=== PATIENT | male | born 1960 | race Caucasian/White ===

== ENCOUNTER 2018-07-12 12:40 | Inpatient (IN) | payer MEDICARE, MEDICAID, SELFPAY ==
[2018-07-12] VITALS (16 sets, daily range): BP systolic 124–158; BP diastolic 70–118; PULSE 70–109; RESP 11–24; TEMP 36.7–38.4; O2SAT 93–98; BMI 49.9; BMI 48.0
--- NOTE | 2018-07-12 12:59 | RAD_ITS ---
STUDY: X-RAY CHEST REASON FOR EXAM: Male, 58 years old. Cough, fever and chest pain. TECHNIQUE: PA and lateral views of the chest. COMPARISON: Comparison is made with prior study dated April 29, 2017. FINDINGS: EKG electrodes are seen. The lungs are clear and expanded. There is no demonstrated pleural abnormality. Normal size heart. Normal mediastinum and jose. Normal visualized pulmonary arteries. There is atherosclerotic tortuosity of the aortic arch and descending thoracic aorta. Normal visualized thoracic spine. Normal visualized ribs, clavicles, and shoulders. There is no demonstrated abnormality of the visualized soft tissue structures of the upper abdomen. RAD/Chest PA and Lateral IMPRESSION: No acute abnormality is seen. Electronically Signed: Stephen Atwood, at 15:02 EDT , Service support ,
--- NOTE | 2018-07-12 12:59 | EKG12_ITS ---
Test Reason : SOB Blood Pressure : / mmHG Vent. Rate : 098 BPM Atrial Rate : 098 BPM P-R Int : 150 ms QRS Dur : 076 ms QT Int : 354 ms P-R-T Axes : 035 018 050 degrees QTc Int : 451 ms Normal sinus rhythm Normal ECG Confirmed by JUSTYNA GUSMAN, LATONIA ([id number]), features editor LION LATHAM ([id number]) on 07/14/2018 8:34:51 AM Referred By: Omar Herndon Confirmed By:LATONIA JANSEN MD
[2018-07-12] MEDS: Albuterol 2.5 MG/3 ML VIAL.NEB. INHALATION ×4 (13:15→23:18)
[2018-07-12] MEDS: Ipratropium/Albuterol Sulfate 3 ML AMPUL.NEB INHALATION ×2 (13:16→19:00)
[2018-07-12] MEDS: Acetaminophen 500 MG Tablet 1000 MG PO (13:25)
[2018-07-12] MEDS: 0.9% Normal Saline 1,000 ML 1000 ML IV (13:25)
[2018-07-12 13:28] LABS: Absolute Lymphocyte Count 0.66 X10^3/ul (0.83-4.51); Absolute Neutrophil Count 13.9 X10^3/uL (2.0-7.7); Basophil# 0.02 X10^3/uL; Basophil% 0.1 % (0-1); Hematocrit 45.1 % (40-54); Hemoglobin 14.4 g/dl (13.0-16.5); Lymphocyte # 0.66 X10^3/ul (4.0); Lymphocyte % 4.2 % (19-41); Mean Corp Hgb Conc 31.9 g/gl (32-36); Mean Corpuscular Hgb 26.8 pg (27.0-32.0); Mean Platelet Vol. 9.7 fl (6.2-12.0); Monocyte# 1.31 X10^3/uL; Monocyte% 8.3 % (0-10); Neutrophil # 13.85 X10^3/uL (2.7-7.7); Neutrophil % 87.2 % (47-70); Platelet Count 210 K/mm3 (150-450); RBC Distribution Width CV 15.3 % (11.6-14.6); RBC Distribution Width SD 46.8 fl (35.1-43.9); Red Blood Count 5.37 M/mm3 (4.6-6.2); White Blood Count 15.9 K/mm3 (4.4-11.0)
[2018-07-12 13:34] LABS: ALB/GLOB Ratio 0.6 RATIO (0.9-2.4); AST(SGOT) 16 U/L (15-37); Alanine Aminotransfer ALT/SGPT 19 U/L (16-61); Alkaline Phosphatase 92 U/L (45-117); Anion Gap 11 (5-15); BUN 10 mg/dL (7-18); BUN/Creat Ratio 6.3 RATIO (10-20); Calcium,Total 8.2 mg/dL (8.5-10.1); Chloride 100 mmol/L (98-107); Creatinine, Serum 1.59 mg/dL (0.70-1.30); EST Glomerular Filtration Rate 48 mL/min (>60); Est Glom Filt Rate - Afr Amer 58 mL/min (>60); Estimated Creatinine Clearance 45.13 ml/min; Globulin 4.7 g/dL (2.2-4.2); Glucose 102 mg/dL (74-106); POSITIVE COUNT NO; POSITIVE DIFFERENTIAL NO; POSITIVE MORPHOLOGY NO; Potassium 3.6 mmol/L (3.5-5.1); Protein, Total 7.7 g/dL (6.4-8.2); Sodium Level 131 mmol/L (136-145)
[2018-07-12 13:58] LABS: Lactic Acid 1.4 mmol/L (0.4-2.0)
--- NOTE | 2018-07-12 14:43 | ED.DCSUM_ITS ---
- ER Visit Summary Date of Service: 07/12/18 Chief Complaint: [Cough, shortness of breath, chills History of Present Illness: The patient is a 58 M with history of COPD who is not on home oxygen, chronic kidney disease, and pyoderma gangrenosum presents to the emergency department with cough and shortness of breath. The patient states his symptoms been worsening over the past 3 days. He states he had cough, productive sputum, chills, and sweats. He is also felt increasingly weak. He is unsure if he had fever but has felt like he has at home. Patient is not on oxygen at home. He denies any other history of immunosuppression. He states his last steroids has been quite some time. He also has history of pyoderma gangrenosum and states that his right leg has been a little more red. Physical Examination: Vital signs reviewed General: Well-nourished, well-developed Head: Normocephalic, atraumatic Eyes: Pupils equal and reactive, extraocular muscles intact Neck, supple, no lymphadenopathy Heart: Regular rate and rhythm Respiratory: No distress, wheezing in all lung johnson with diminished air movement chronic skin changes on the lower extremities consistent with gangrenosum, Abdomen: Soft, nontender, nondistended, no peritoneal signs Back: Nontender Extremities: But some cellulitis and redness on the lower leg, normal pulses Skin: Normal color no rash Neuro: Alert and oriented, no focal or lateralizing deficits Test Results: [] Emergency Department Course and Treatment: The patient presents with fever, cough, and was hypoxic on arrival. Patient had IV established. Sepsis workup was pursued. Blood cultures were obtained. Patient was given fluids, steroids, and nebulized breathing treatments. He was also given supplemental oxygen. Chest x-ray shows no focal infiltrate. Patient does have a leukocytosis. His influenza was negative. On reevaluation, he is more comfortable. I am going to cover the patient with Rocephin and doxycycline for both pulmonary and skin coverage. He does have a mild cellulitis of his right lower extremity, but I do feel the bulk of his symptoms are secondary to respiratory status. With his hypoxia, the patient is in require admission. He had resolution of his tachypnea and is more comfortable. He was discussed with the hospitalist will be admitted. Treatment Plan: [] Disposition: Admission Impression: 1. Cellulitis right lower extremity 2. COPD exacerbation 3. Hypoxia 4. Sepsis This note was generated with [employer] dictation software. It may contain incorrect words, spelling, and punctuation that were not noted in review of the chart prior to signing ED Disposition - Plan for ED Patient: Referrals: Rey Knott MD [Primary Care Provider] -
--- NOTE | 2018-07-12 14:49 | NURSING ---
DR COLE IN ER
--- NOTE | 2018-07-12 14:49 | NURSING ---
PCU COPD EXAC, ACUTE RESP FAILURE, RLE CELLULITIS DOUGLAS
[2018-07-12] MEDS: Ceftriaxone 1 GM/50 ML BAG IV (14:53)
[2018-07-12] MEDS: MethylPREDNISolone 125 MG/2 ML Vial IV (14:54)
--- NOTE | 2018-07-12 15:05 | CT_ITS ---
Study: CT of the right lower extremity with contrast CLINICAL HISTORY: Abscess of the right calf and right ankle Previous study: None. PROCEDURE: Multiple computed tomographic images of the right lower extremity were obtained at 2.5 mm intervals using 2.5 mm thick slices in the axial projection. Coronal and sagittal reconstructions were obtained. Radiation dose: Total exam DLP: 749.05 FINDINGS: There is no evidence of abscess. There is skin thickening and subcutaneous fatty stranding of the anterolateral aspect of the leg consistent with cellulitis. Muscular soft tissue fascial planes are preserved. There is a geographic sclerotic focus of the proximal tibial metaphysis which may represent evidence of old bone infarct. CT/Extremity Lower WITH Contrast IMPRESSION: Skin thickening and subcutaneous fatty stranding of the anterolateral right leg consistent with cellulitis. There is no evidence of abscess or soft tissue gas. Electronically Signed: Manuel Garcia MD at 17:25 EDT , Service support ,
--- NOTE | 2018-07-12 15:19 | PCM.HP.STD ---
<Alfredo Tran - Last Filed: 07/12/18 15:29> Problem List (1) Sepsis Status: Acute (2) COPD with exacerbation Status: Acute (3) Cellulitis Status: Acute (4) Acute bronchitis Status: Acute (5) Hyponatremia Status: Acute (6) Pyoderma gangrenosum Status: Chronic (7) CKD (chronic kidney disease) stage 3, GFR 30-59 ml/min Status: Chronic (8) Morbid obesity Status: Chronic (9) MANDI (obstructive sleep apnea) Status: Chronic History of Present Illness Date of Admission: 07/12/18 Chief Complaint: SOB The patient is a 58 year old M with pmhx of pyoderma gangrenosum, COPD, CKDIII, morbid obesity, MANDI, HTN, depression, who presented to the ER with c/p SOB. He has been feeling progressively more ill in the past 3 days. He has become SOB worse with exertion, has been having fevers and chills, has a nonproductive cough and a sore throat. He is very wheezy. He also appears to have some worsening redness and swelling around his RLE pyoderma with swelling centralized over the right calf. He is saturating well, and is comfortable on 2 liters. He has no drainage from his wounds, but does admit to picking and scratching at the scabs. He has other lesions on his abdomen and arms as well. These do not appear acutely worse. 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 He is febrile in the ER. [] Past Medical History Past Medical History (Chronic Problems): Chronic Problems Pyoderma gangrenosum (Chronic) MANDI (obstructive sleep apnea) (Chronic) Morbid obesity (Chronic) CKD (chronic kidney disease) stage 3, GFR 30-59 ml/min (Chronic) Allergies aspirin Allergy (Verified 07/12/18 12:42) Anaphylaxis Penicillins Allergy (Verified 07/12/18 12:42) Hives Home Medications: Ambulatory Orders Medication Instructions Recorded Albuterol Aerosols [Ventolin 2.5 mg INHALATION Q6H PRN PRN 11/26/16 Aerosols] Albuterol Inhaler [Ventolin Hfa] 2 puff INHALATION Q6H PRN PRN 11/26/16 Quetiapine Fumarate [Seroquel XR] 200 mg PO QHS 11/26/16 Triamcinolone 0.1% Cream [Kenalog] 1 applic TOPICAL TID 04/29/17 Umeclidinium [place] [Incruse 1 puff INHALATION DAILY 04/29/17 Ellipta] buPROPion XL [Wellbutrin Xl] 300 mg PO DAILY 04/29/17 Baclofen 10 mg PO BID 07/12/18 Duloxetine HCl 60 mg PO DAILY 07/12/18 Losartan Potassium 100 mg PO DAILY 07/12/18 Surgical History: - Psychiatric History: Post traumatic stress Lives: Alone Smoking Status: Never smoker Tobacco Use: Non-smoker Alcohol: None Drugs: None - *Family History Maternal History Items: No pertinent history Paternal History Items: Heart Disease Sibling History Items: Heart Disease Review of Systems Constitutional: Reports: Chills, Fever, Malaise, Fatigue. Denies: Weight Change HEENT: Denies: Head Aches, Sinus Congestion, Sinus Drainage Cardiovascular: Denies: Chest Pain, Chest Pressure, Chest Tightness, Edema, Heaviness, Light Headedness, Palpitations Respiratory: Reports: Cough, Shortness of Breath, Shortness of breath at rest, Shortness of breath upon exertion, Wheezing. Denies: Pleuritic Pain, Sputum production Gastrointestinal: Reports: Nausea, Vomiting. Denies: Abdominal Pain, Diarrhea Genitourinary: Denies: Dysuria Musculoskeletal: Denies: Joint Pain, Joint Tenderness Skin: Reports: Lesions, Rash, Skin Changes. Denies: Wounds Neurological: Denies: Numbness, Tingling, Focal weakness Psychiatric: Denies: Anxiety, Depression, Homicidal Ideations, Suicidal Ideations Hematologic/ Lymphatic: Denies: Easy Bruising, Easy Bleeding VTE Information - Inpt Only VTE Present on Admission: No VTE Mechan Device Prophylaxis: None VTE Pharm Prophylaxis ordered?: Yes Patient Problems: Active and Suspected Problems COPD with exacerbation (Acute) Acute bronchitis (Acute) Sepsis (Acute) Hyponatremia (Acute) Cellulitis (Acute) - Physical Exam General: Alert, Oriented x3, Cooperative HEENT: Atraumatic, PERRLA, EOMI, Normocephalic Neck: Supple, No JVD, Negative Carotid Bruits Lungs: Diminished, Rhonchi, Wheezes Cardiovascular: No murmurs, Tachycardic Abdomen: Bowel Sounds Present, Soft, Non Tender, Obese, - - chronic wounds Extremities: No edema, Capillary Refill Less than 3 Seconds Skin: - - increased erythema and swelling of the RLE surrounding the pyoderma wounds, with swelling noted more locally around the posterolater calf with induration Musculoskeletal: No Tenderness to Palpation of Joints or Extremities Neurological: Cranial nerves II-XII grossly intact Psych/Mental Status: Normal Affect, Appropriate, Alert and oriented to time, place, person, mood and affect Vital Signs Temp Pulse Resp BP Pulse Ox 99.6 F H 103 H 20 H 124/70 H 96 07/12/18 14:46 07/12/18 14:46 07/12/18 14:46 07/12/18 14:46 07/12/18 14:46 Oxygen Flow Rate (L/min) 2 Oxygen Delivery Method Nasal Cannula Weight: 300 lb Body Mass Index (BMI) 49.9 Microbiology Past 72 Hours 07/12/18 13:34 Influenza Types A,B Direct FA (TOAN) - Final Mucosa - Nose Laboratory Tests Past 24 Hrs 07/12/18 07/12/18 07/12/18 13:09 13:09 13:14 WBC 15.9 H RBC 5.37 Hgb 14.4 Hct 45.1 MCV 84.0 MCH 26.8 L MCHC 31.9 L RDW 15.3 H RDW Differential 46.8 H Plt Count 210 MPV 9.7 Immature Gran % (Auto) 0.200 Neut % (Auto) 87.2 H Lymph % (Auto) 4.2 L [place] % (Auto) 8.3 Eos % (Auto) 0.0 Baso % (Auto) 0.1 Absolute Neuts (auto) 13.9 H Absolute Lymphs (auto) 0.66 L Total Counted Not Reportable Sodium 131 L Potassium 3.6 Chloride 100 Carbon Dioxide 20.0 L Anion Gap 11 BUN 10 Creatinine 1.59 H Estim Creat Clear Calc 45.13 Est GFR (MDRD) Af Amer 58 L Est GFR (MDRD) Non-Af 48 L BUN/Creatinine Ratio 6.3 L Glucose 102 Lactic Acid 1.4 Calcium 8.2 L Total Bilirubin 0.60 AST 16 ALT 19 Alkaline Phosphatase 92 Troponin I < 0.015 Total Protein 7.7 Albumin 3.0 L Globulin 4.7 H Albumin/Globulin Ratio 0.6 L Assessment/Plan All Active Problems COPD with exacerbation (Acute) Acute bronchitis (Acute) Sepsis (Acute) Hyponatremia (Acute) Cellulitis (Acute) BRIAN (acute kidney injury) (Acute) COPD (chronic obstructive pulmonary disease) (Acute) Acute respiratory failure with hypoxia (Acute) 1. Acute sepsis 2/2 acute bronchitis and possibly cellulitis RLE surrounding pyoderma gangrenosum wound - given Rocephin/Doxy in ER. Consult ID. D/w Dr. Mckeon - start with rocephin and azithro for now. CT RLE with contrast for possible abscess given swelling and induration of the calf. He has been picking at the wounds. He does have a hx of bacteremia with Strep vestibularis and coag neg staph. Blood cultures drawn. culture sputum if able to provide. -Sepsis criteria: +fever, leukocytosis, tachycardia, tachypnea, negative lactate. 2. Acute COPD exacerbation - continue steroids, duonebs, IS therapy. He is not hypoxic. CO2 is decreased on BMP. Gap normal. Never a smoker - COPD 2/2 fire/smoke exposure/occupational inhalants. He no longer follows his Assistant Speech Language Pathologist in [place], [place]. 3. Morbid obesity - likely has MANDI 4. CKD III - at baseline - IV fluids will be given as he will have a contrasted CT. 5. Hyponatremia - unclear etiology - trend. IV NaCl 6. Depression/PTSD - home meds 7. HTN - stable 8. Pyoderma gangrenosum - on topical kenalog at home. C/s wound care. DVT ppx: heparin This patient was seen by Alfredo Tran PA-C under the supervision of Dr. Herndon. <Omar Herndon - Last Filed: 07/12/18 17:23> History of Present Illness The patient is a 58 year old M with history of COPD, obstructive sleep ap[facility] with shortness of breath progressively worse for last 5 days. This time, patient having progressively worsening of cough, URIs with sore throat and postnasal drip and shortness of breath along with fever. He also feels chest congestion; not able to cough out mucus and wheezing. Patient also has worsening of right lower extremity pain, redness consistent with cellulitis. In ED, was found hypoxic 96% on 2 L of oxygen, tachypneic respiratory rate 22 and fever, T-max 101.1 Fahrenheit. Labs shows leukocytosis with left shift. Mild hyponatremia. Creatinine 1.59 on baseline The patient was last discharged on 05/03/1999 5:18 days of hospitalization for COPD exacerbation with acute hypoxic respiratory failure. Past Medical History Allergies aspirin Allergy (Verified 07/12/18 12:42) Anaphylaxis Penicillins Allergy (Verified 07/12/18 12:42) Hives - Physical Exam General: Alert, Oriented x3, Cooperative HEENT: Atraumatic, PERRLA, EOMI, Normocephalic Oral: - - Posterior pharyngeal wall erythematous with mucus exudate Neck: Supple, No JVD, Negative Carotid Bruits Lungs: Diminished, Rhonchi, Short of Breath, Tachypneic, Wheezes Cardiovascular: Normal S1, Normal S2, No murmurs, Tachycardic Abdomen: Bowel Sounds Present, Soft, Non Tender, Obese, - - chronic wounds Extremities: Capillary Refill Less than 3 Seconds, Edema Skin: No rashes, No breakdown, - Musculoskeletal: No Tenderness to Palpation of Joints or Extremities, Arthritic Changes, Muscle Wasting Neurological: Cranial nerves II-XII grossly intact Psych/Mental Status: Normal Affect, Appropriate Vital Signs Temp Pulse Resp BP Pulse Ox 98.3 F 89 22 H 138/84 H 97 07/12/18 15:54 07/12/18 16:05 07/12/18 15:54 07/12/18 15:54 07/12/18 15:54 Oxygen Flow Rate (L/min) 2 Oxygen Delivery Method Nasal Cannula Weight: 288 lb 5.834 oz Body Mass Index (BMI) 48.0 Microbiology Past 72 Hours 07/12/18 13:34 Influenza Types A,B Direct FA (TOAN) - Final Mucosa - Nose Laboratory Tests Past 24 Hrs 07/12/18 07/12/18 07/12/18 13:09 13:09 13:14 WBC 15.9 H RBC 5.37 Hgb 14.4 Hct 45.1 MCV 84.0 MCH 26.8 L MCHC 31.9 L RDW 15.3 H RDW Differential 46.8 H Plt Count 210 MPV 9.7 Immature Gran % (Auto) 0.200 Neut % (Auto) 87.2 H Lymph % (Auto) 4.2 L [place] % (Auto) 8.3 Eos % (Auto) 0.0 Baso % (Auto) 0.1 Absolute Neuts (auto) 13.9 H Absolute Lymphs (auto) 0.66 L Total Counted Not Reportable Sodium 131 L Potassium 3.6 Chloride 100 Carbon Dioxide 20.0 L Anion Gap 11 BUN 10 Creatinine 1.59 H Estim Creat Clear Calc 45.13 Est GFR (MDRD) Af Amer 58 L Est GFR (MDRD) Non-Af 48 L BUN/Creatinine Ratio 6.3 L Glucose 102 Lactic Acid 1.4 Calcium 8.2 L Total Bilirubin 0.60 AST 16 ALT 19 Alkaline Phosphatase 92 Troponin I < 0.015 Total Protein 7.7 Albumin 3.0 L Globulin 4.7 H Albumin/Globulin Ratio 0.6 L MRSA (PCR) 07/12/18 16:35 WBC RBC Hgb Hct MCV MCH MCHC RDW RDW Differential Plt Count MPV Immature Gran % (Auto) Neut % (Auto) Lymph % (Auto) [place] % (Auto) Eos % (Auto) Baso % (Auto) Absolute Neuts (auto) Absolute Lymphs (auto) Total Counted Sodium Potassium Chloride Carbon Dioxide Anion Gap BUN Creatinine Estim Creat Clear Calc Est GFR (MDRD) Af Amer Est GFR (MDRD) Non-Af BUN/Creatinine Ratio Glucose Lactic Acid Calcium Total Bilirubin AST ALT Alkaline Phosphatase Troponin I Total Protein Albumin Globulin Albumin/Globulin Ratio MRSA (PCR) Pending Assessment/Plan This patient was seen in conjunction with Alfredo BECK. I have independently interviewed and examined the patient and reviewed pertinent history, examination findings, laboratory and plan of management. I have reviewed the note and agree with the documented findings with the few additional points. In brief, patient is admitted for acute SIRS (fever, tachycardia, tachypnea and leukocytosis) secondary to history of COPD exacerbation most probably secondary to viral/bacterial bronchitis. Patient also has right lower extremity cellulitis with history of pyoderma gangrenosum. Patient denies any chronic abdominal pain or history of Crohn's disease/ulcerative colitis. Started on IV Rocephin and doxycycline. Discussed with ID and agree with IV Rocephin and doxycycline. 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 I have discussed my assessment with Alfredo BECK and orders have been reviewed. Code Visit Inpatient E&M: 73923 Init Hosp L3
--- NOTE | 2018-07-12 16:47 | CASEMGMT ---
RN CM Assessment Introduced role of RN CM to patient. Patient is alert, oriented and able to participate in RN CM Assessment. Care providers, pharmacy, and demographics verified. Presentation: Admitted for COPD exa, Acute Resp Failure, RLE Cellulitis. CC: SOB, Weakness, Fatigue PCP: Dr Rey Knott Specialists: Patient states is supposed to see a Bill Clerk but they keep telling him that he has [employer] and trying to bill under there and told that provider (Cannot recall Nephro Dr name- was referred by PCP) is not covered. Patient rambling on about it going to Collections and States only has Medicare, Would like to get help with figuring it out so he can f/u with Nephro. Preferred [facility]acy: [facility] Insurance: Medicare A&B, Medicaid Prescription Benefit: Yes LNOK: Daughter Chqiuita Jo Living Arrangements: Lives in a Farm house, some steps to enter- patient states does not have to use much, does not go out much. Independent with ambulation but does utilize a cane when legs are hurting. Independent with ADL's. Transportation: Patient drives, Drove self to hospital and plans to drive on [place]. DME: CPAP, Cane, Nebulizer. HHC: None in past SNF: None in past [place] PLAN: Home with no anticipated needs identified. Chery Duvall RNCM
[2018-07-12 19:24] LABS: M R Staph aureus DNA By PCR Negative (Negative); Probe Check PASS; Specimen Processing Control PASS
[2018-07-12] MEDS: Baclofen 10 MG Tablet PO (21:20)
[2018-07-12] MEDS: QUEtiapine 100 MG Tablet PO (21:20)
[2018-07-12] MEDS: Heparin Injection (Vial) 5,000 UNIT/ML VIAL 5000 UNIT SC (21:23)
[2018-07-13] VITALS (13 sets, daily range): BP systolic 145–165; BP diastolic 76–99; PULSE 67–111; RESP 16–20; TEMP 36.4–36.8; O2SAT 94–98
[2018-07-13] MEDS: 0.9% Normal Saline 1,000 ML 125 ML IV ×2 (00:51→09:42)
[2018-07-13 03:15] LABS: Bacteria 0 SEEN /hpf (None Seen); Mucous, Urine 0 SEEN /hpf (<or=2+); Squamous Epithelial Cells - UA 0 SEEN /hpf (0-5)
[2018-07-13] MEDS: Albuterol 2.5 MG/3 ML VIAL.NEB. INHALATION (03:17)
[2018-07-13 03:32] LABS: Color, Urine Yellow (Yellow); Glucose, Dipstick 50 mg/dl (Normal); Ketone-Dipstick Negative (Negative); Leukocyte Esterase-Dipstick Negative /ul (Negative); Nitrite-Dipstick Negative (Negative); Occult Blood-Urine 250 /ul (Negative); Protein-Dipstick 100 mg/dl (Negative); Urine Bilirubin Dipstick Negative (Negative); Urine Clarity Sl. Cloudy (Clear); Urine Urobilinogen Normal (Normal)
[2018-07-13 03:34] LABS: Fine Granular Cast- Urine 0-5 SEEN /lpf (0-5)
[2018-07-13 03:36] LABS: Red Blood Cells-Urine 50-100 SEEN /hpf (0-5); White Blood Cells 0-5 SEEN /hpf (0-5)
[2018-07-13 06:28] LABS: Anion Gap 6 (5-15); BUN 15 mg/dL (7-18); BUN/Creat Ratio 11.6 RATIO (10-20); Calcium,Total 8.5 mg/dL (8.5-10.1); Chloride 109 mmol/L (98-107); Creatinine, Serum 1.29 mg/dL (0.70-1.30); EST Glomerular Filtration Rate 61 mL/min (>60); Est Glom Filt Rate - Afr Amer 74 mL/min (>60); Estimated Creatinine Clearance 53.54 ml/min; Glucose 157 mg/dL (74-106); Potassium 4.5 mmol/L (3.5-5.1); Sodium Level 140 mmol/L (136-145)
[2018-07-13 06:29] LABS: Absolute Lymphocyte Count 0.43 X10^3/ul (0.83-4.51); Basophil# 0.01 X10^3/uL; Basophil% 0.1 % (0-1); Differential Indicated SCAN CRITERIA MET; Hematocrit 44.1 % (40-54); Hemoglobin 14.2 g/dl (13.0-16.5); Lymphocyte # 0.43 X10^3/ul (4.0); Lymphocyte % 3.7 % (19-41); Mean Corp Hgb Conc 32.2 g/gl (32-36); Mean Platelet Vol. 10.5 fl (6.2-12.0); Monocyte# 0.17 X10^3/uL; Monocyte% 1.5 % (0-10); Neutrophil # 10.98 X10^3/uL (2.7-7.7); Neutrophil % 94.4 % (47-70); POSITIVE COUNT NO; POSITIVE DIFFERENTIAL YES; POSITIVE MORPHOLOGY NO; Platelet Count 203 K/mm3 (150-450); RBC Distribution Width CV 15.4 % (11.6-14.6); RBC Distribution Width SD 47.1 fl (35.1-43.9); Red Blood Count 5.25 M/mm3 (4.6-6.2); White Blood Count 11.6 K/mm3 (4.4-11.0)
[2018-07-13] MEDS: Ipratropium/Albuterol Sulfate 3 ML AMPUL.NEB INHALATION ×2 (06:57→19:13)
--- NOTE | 2018-07-13 09:16 | CASEMGMT ---
Addendum entered by Monica Phelps 07/13/18 11:36: This RN SAM received a call back from Anju Delgado and she states that pt has not had a nephro referral sent for the last several years. Advised her that we can send him with a referral from here at discharge and Stefano CUSTOMER EXPERT aware at this time, voices understanding. Edson MCAK CM Original Note: Message left for Anju Delgado, [facility] CM for Dr. Knott, in regards to name of room attendant that they referred pt to. Edson MACK CM
[2018-07-13] MEDS: Ceftriaxone 1 GM/50 ML BAG IV (09:40)
[2018-07-13] MEDS: Azithromycin 250 MG Tablet 500 MG PO (09:42)
[2018-07-13] MEDS: DULoxetine Hcl 60 MG Capsule PO (09:42)
[2018-07-13] MEDS: Losartan Potassium 100 MG Tablet PO (09:43)
[2018-07-13] MEDS: buPROPion (XL) 300 MG TABLET.XL PO (09:43)
[2018-07-13] MEDS: QUEtiapine 100 MG Tablet PO ×2 (09:43→20:59)
[2018-07-13] MEDS: Baclofen 10 MG Tablet PO ×2 (09:43→20:59)
[2018-07-13] MEDS: Heparin Injection (Vial) 5,000 UNIT/ML VIAL 5000 UNIT SC ×2 (09:44→21:00)
--- NOTE | 2018-07-13 11:46 | PCM.PROGNOTE ---
Patient Problems: Active and Suspected Problems COPD with exacerbation (Acute) Acute bronchitis (Acute) Sepsis (Acute) Hyponatremia (Acute) Cellulitis (Acute) Subjective: Patient seen and examined. Reports improvement in breathing. Denies fever, chills overnight. - Physical Exam General: Alert, Oriented x3, Cooperative HEENT: Atraumatic, PERRLA, EOMI, Normocephalic Neck: Supple, No JVD, Negative Carotid Bruits Lungs: Diminished, Rhonchi, Wheezes Cardiovascular: Regular rate, Regular Rhythm, Normal S1, Normal S2, No murmurs Abdomen: Bowel Sounds Present, Soft, Non Tender, Non-Distended Extremities: No clubbing, No cyanosis, No edema, Capillary Refill Less than 3 Seconds Skin: - - Scattered erythema and pyoderma right lower extremity and right lower abdomen. Musculoskeletal: No Tenderness to Palpation of Joints or Extremities Neurological: Cranial nerves II-XII grossly intact, Neuro grossly intact Psych/Mental Status: Normal Affect, Appropriate Vital Signs Temp Pulse Resp BP Pulse Ox 98.2 F 80 18 157/99 H 94 07/13/18 10:00 07/13/18 10:00 07/13/18 10:00 07/13/18 10:00 07/13/18 10:00 Oxygen Flow Rate (L/min) 2 Oxygen Delivery Method Nasal Cannula Weight: 288 lb 5.834 oz Body Mass Index (BMI) 48.0 Intake and Output for Last 24 Hours 07/11/18 07/12/18 07/13/18 23:59 23:59 23:59 Intake Total 1497 / 1497 1048 / 1048 Output Total 1350 / 1350 1875 / 1875 Balance 147 / 147 -827 / -827 Microbiology Past 72 Hours 07/12/18 19:05 Respiratory Panel (PCR) - Final Mucosa - Nose Rhinovirus 07/12/18 13:34 Influenza Types A,B Direct FA (TOAN) - Final Mucosa - Nose Laboratory Tests Past 24 Hrs 07/12/18 07/12/18 07/12/18 13:09 13:09 13:14 WBC 15.9 H RBC 5.37 Hgb 14.4 Hct 45.1 MCV 84.0 MCH 26.8 L MCHC 31.9 L RDW 15.3 H RDW Differential 46.8 H Plt Count 210 MPV 9.7 Immature Gran % (Auto) 0.200 Neut % (Auto) 87.2 H Lymph % (Auto) 4.2 L [place] % (Auto) 8.3 Eos % (Auto) 0.0 Baso % (Auto) 0.1 Absolute Neuts (auto) 13.9 H Absolute Lymphs (auto) 0.66 L Total Counted Not Reportable Sodium 131 L Potassium 3.6 Chloride 100 Carbon Dioxide 20.0 L Anion Gap 11 BUN 10 Creatinine 1.59 H Estim Creat Clear Calc 45.13 Est GFR (MDRD) Af Amer 58 L Est GFR (MDRD) Non-Af 48 L BUN/Creatinine Ratio 6.3 L Glucose 102 Lactic Acid 1.4 Calcium 8.2 L Total Bilirubin 0.60 AST 16 ALT 19 Alkaline Phosphatase 92 Troponin I < 0.015 Total Protein 7.7 Albumin 3.0 L Globulin 4.7 H Albumin/Globulin Ratio 0.6 L Urine Color Urine Clarity Urine pH Ur Specific [place] Urine Protein Urine Glucose (UA) Urine Ketones Urine Occult Blood Urine Nitrite Urine Bilirubin Urine Urobilinogen Ur Leukocyte Esterase Urine RBC Urine WBC Ur Squamous Epith Cells Urine Bacteria Fine Granular Casts Urine Mucus MRSA (PCR) 07/12/18 07/13/18 07/13/18 16:35 03:00 05:25 WBC 11.6 H RBC 5.25 Hgb 14.2 Hct 44.1 MCV 84.0 MCH 27.0 MCHC 32.2 RDW 15.4 H RDW Differential 47.1 H Plt Count 203 MPV 10.5 Immature Gran % (Auto) 0.300 Neut % (Auto) 94.4 H Lymph % (Auto) 3.7 L [place] % (Auto) 1.5 Eos % (Auto) 0.0 Baso % (Auto) 0.1 Absolute Neuts (auto) 11.0 H Absolute Lymphs (auto) 0.43 L Total Counted Not Reportable Sodium Potassium Chloride Carbon Dioxide Anion Gap BUN Creatinine Estim Creat Clear Calc Est GFR (MDRD) Af Amer Est GFR (MDRD) Non-Af BUN/Creatinine Ratio Glucose Lactic Acid Calcium Total Bilirubin AST ALT Alkaline Phosphatase Troponin I Total Protein Albumin Globulin Albumin/Globulin Ratio Urine Color Yellow Urine Clarity Sl. Cloudy Urine pH 5.0 Ur Specific [place] 1.010 Urine Protein 100 H Urine Glucose (UA) 50 H Urine Ketones Negative Urine Occult Blood 250 H Urine Nitrite Negative Urine Bilirubin Negative Urine Urobilinogen Normal Ur Leukocyte Esterase Negative Urine RBC 50-100 SEEN Urine WBC 0-5 SEEN Ur Squamous Epith Cells 0 SEEN Urine Bacteria 0 SEEN Fine Granular Casts 0-5 SEEN Urine Mucus 0 SEEN MRSA (PCR) Negative 07/13/18 05:25 WBC RBC Hgb Hct MCV MCH MCHC RDW RDW Differential Plt Count MPV Immature Gran % (Auto) Neut % (Auto) Lymph % (Auto) [place] % (Auto) Eos % (Auto) Baso % (Auto) Absolute Neuts (auto) Absolute Lymphs (auto) Total Counted Sodium 140 Potassium 4.5 Chloride 109 H Carbon Dioxide 25.0 Anion Gap 6 BUN 15 Creatinine 1.29 Estim Creat Clear Calc 53.54 Est GFR (MDRD) Af Amer 74 Est GFR (MDRD) Non-Af 61 BUN/Creatinine Ratio 11.6 Glucose 157 H Lactic Acid Calcium 8.5 Total Bilirubin AST ALT Alkaline Phosphatase Troponin I Total Protein Albumin Globulin Albumin/Globulin Ratio Urine Color Urine Clarity Urine pH Ur Specific [place] Urine Protein Urine Glucose (UA) Urine Ketones Urine Occult Blood Urine Nitrite Urine Bilirubin Urine Urobilinogen Ur Leukocyte Esterase Urine RBC Urine WBC Ur Squamous Epith Cells Urine Bacteria Fine Granular Casts Urine Mucus MRSA (PCR) Medical Necessity - Tobacco Use Smoking Status: Never smoker Tobacco Use: Non-smoker Assessment/Plan All Active Problems COPD with exacerbation (Acute) Acute bronchitis (Acute) Sepsis (Acute) Hyponatremia (Acute) Cellulitis (Acute) BRIAN (acute kidney injury) (Acute) COPD (chronic obstructive pulmonary disease) (Acute) Acute respiratory failure with hypoxia (Acute) 1. Acute sepsis secondary to acute COPD exacerbation as a result of rhinovirus-respiratory panel positive for rhinovirus. Chest x-ray without acute abnormality. IV Solu-Medrol. Albuterol and DuoNeb aerosols. IS. Does not currently follow with pulmonary medicine. Recommend outpatient follow-up with pulmonary medicine at discharge. Patient currently on 2 L nasal cannula. Wean oxygen as tolerated to maintain O2 at or above 90%. Walking pulse ox prior to discharge. Blood cultures pending. 2. Pyoderma gangrenosum, chronic with associated cellulitis-wound RN consult for right lower extremity wounds. CT of right lower extremity showed skin thickening and subcutaneous fatty stranding of the anterolateral right leg consistent with cellulitis. No evidence of abscess or soft tissue gas. ID consulted. On azithromycin and Rocephin. Feel patient can be transitioned to oral regimen. Patient has a history of picking scabs and areas of pyoderma. Obtain wound culture if possible. Most areas appear scabbed over. Patient will need outpatient follow-up with dermatology. Do not feel this is a source of sepsis. 3. Chronic kidney disease stage III-at baseline, trend BMP. Has been referred to nephrology in the past which she has not followed up with. Recommend outpatient nephrology referral at discharge. 4. Hyponatremia-suspect secondary to hypovolemia. Resolved. 5. Hypertension-stable, continue home losartan regimen. 6. Depression/PTSD-continue home duloxetine, bupropion, Seroquel regimen. 7. Morbid obesity-encouraged diet lifestyle modifications. Nutrition consult. 8. MANDI-continue CPAP regimen. DVT prophylaxis-heparin subcu This patient was seen by ROXANA Peña under the supervision of Dr. Talley.
--- NOTE | 2018-07-13 11:59 | NURSING ---
wound photo: right lower leg
--- NOTE | 2018-07-13 16:38 | CON.PCM_ITS ---
Problem List (1) COPD with exacerbation Status: Acute Reason for Consult: cough Consulted by: Dr. Talley History of Present Illness: The patient is a 58 year old M with h/o COPD who presented yesterday with several days of cough, SOB, wheezing. Associated fever and chills. Has some chronic sores on legs and excoriations, not any different from usual; no pain or drainage. Has been around sick kids with URIs. Came to ED, fever to 101.1. Given doxy and ceftriaxone, admitted on steroids, azithro, ceftriaxone. Feeling better this AM. Full ROS performed and neg except as noted above. - Medical History Past Medical History (Chronic Problems): Chronic Problems Pyoderma gangrenosum (Chronic) MANDI (obstructive sleep apnea) (Chronic) Morbid obesity (Chronic) CKD (chronic kidney disease) stage 3, GFR 30-59 ml/min (Chronic) Allergies/Adverse Reactions: Allergies aspirin Allergy (Verified 07/12/18 12:42) Anaphylaxis Penicillins Allergy (Verified 07/12/18 12:42) Hives Home Medications: Ambulatory Orders Medication Instructions Recorded Albuterol Aerosols [Ventolin 2.5 mg INHALATION Q6H PRN PRN 11/26/16 Aerosols] Albuterol Inhaler [Ventolin Hfa] 2 puff INHALATION Q6H PRN PRN 11/26/16 Quetiapine Fumarate [Seroquel XR] 200 mg PO QHS 11/26/16 Triamcinolone 0.1% Cream [Kenalog] 1 applic TOPICAL TID 04/29/17 Umeclidinium [place] [Incruse 1 puff INHALATION DAILY 04/29/17 Ellipta] buPROPion XL [Wellbutrin Xl] 300 mg PO DAILY 04/29/17 Baclofen 10 mg PO BID 07/12/18 Duloxetine HCl 60 mg PO DAILY 07/12/18 Losartan Potassium 100 mg PO DAILY 07/12/18 - Social History Tobacco Use: non-smoker Vital Signs Temp Pulse Resp BP Pulse Ox 98.1 F 97 18 146/76 H 98 07/13/18 14:00 07/13/18 16:00 07/13/18 14:00 07/13/18 14:00 07/13/18 14:00 Oxygen Flow Rate (L/min) 2 Oxygen Delivery Method Nasal Cannula Weight: 130.8 kg Body Mass Index (BMI) 48.0 Microbiology Past 72 Hours 07/12/18 19:05 Respiratory Panel (PCR) - Final Mucosa - Nose Rhinovirus 07/12/18 13:34 Influenza Types A,B Direct FA (TOAN) - Final Mucosa - Nose Laboratory Tests Past 24 Hrs 07/12/18 07/13/18 07/13/18 16:35 03:00 05:25 WBC 11.6 H RBC 5.25 Hgb 14.2 Hct 44.1 MCV 84.0 MCH 27.0 MCHC 32.2 RDW 15.4 H RDW Differential 47.1 H Plt Count 203 MPV 10.5 Immature Gran % (Auto) 0.300 Neut % (Auto) 94.4 H Lymph % (Auto) 3.7 L [place] % (Auto) 1.5 Eos % (Auto) 0.0 Baso % (Auto) 0.1 Absolute Neuts (auto) 11.0 H Absolute Lymphs (auto) 0.43 L Total Counted Not Reportable Sodium Potassium Chloride Carbon Dioxide Anion Gap BUN Creatinine Estim Creat Clear Calc Est GFR (MDRD) Af Amer Est GFR (MDRD) Non-Af BUN/Creatinine Ratio Glucose Calcium Urine Color Yellow Urine Clarity Sl. Cloudy Urine pH 5.0 Ur Specific [place] 1.010 Urine Protein 100 H Urine Glucose (UA) 50 H Urine Ketones Negative Urine Occult Blood 250 H Urine Nitrite Negative Urine Bilirubin Negative Urine Urobilinogen Normal Ur Leukocyte Esterase Negative Urine RBC 50-100 SEEN Urine WBC 0-5 SEEN Ur Squamous Epith Cells 0 SEEN Urine Bacteria 0 SEEN Fine Granular Casts 0-5 SEEN Urine Mucus 0 SEEN MRSA (PCR) Negative 07/13/18 05:25 WBC RBC Hgb Hct MCV MCH MCHC RDW RDW Differential Plt Count MPV Immature Gran % (Auto) Neut % (Auto) Lymph % (Auto) [place] % (Auto) Eos % (Auto) Baso % (Auto) Absolute Neuts (auto) Absolute Lymphs (auto) Total Counted Sodium 140 Potassium 4.5 Chloride 109 H Carbon Dioxide 25.0 Anion Gap 6 BUN 15 Creatinine 1.29 Estim Creat Clear Calc 53.54 Est GFR (MDRD) Af Amer 74 Est GFR (MDRD) Non-Af 61 BUN/Creatinine Ratio 11.6 Glucose 157 H Calcium 8.5 Urine Color Urine Clarity Urine pH Ur Specific [place] Urine Protein Urine Glucose (UA) Urine Ketones Urine Occult Blood Urine Nitrite Urine Bilirubin Urine Urobilinogen Ur Leukocyte Esterase Urine RBC Urine WBC Ur Squamous Epith Cells Urine Bacteria Fine Granular Casts Urine Mucus MRSA (PCR) - Other Studies Radiology: [] reviewed Other Studies: [] Route of nutrition/ use of supplements: [] Nutritional Intake: [] IV Site: [] [place] Catheter: [] - Physical Exam General: Alert, Oriented x3, Cooperative, No apparent distress HEENT: Atraumatic, PERRLA, EOMI Neck: Supple, No Nodes Lungs: Wheezes Cardiovascular: Regular rate, Regular Rhythm, No murmurs Abdomen: Soft, Non Tender, Non-Distended, Obese Extremities: Edema Skin: Excoriated - R mcclure area of induration/scarring. IV Site: Peripheral, without redness Musculoskeletal: No Tenderness to Palpation of Joints or Extremities Neurological: Cranial nerves II-XII grossly intact - Assessment/Plan Antibiotics: [] Assessment/Plan: [] Active and Suspected Problems COPD with exacerbation (Acute) Acute bronchitis (Acute) Sepsis (Acute) Hyponatremia (Acute) Cellulitis (Acute) COPD exacerbation with rhinovirus URI - low suspicion for cellulitis given stable appearance of legs (CT showed no abscess). No sputum. Resp viral panel with rhinovirus. Fever and wbc improved. SOB and cough improved. Stop ceftriaxone, continue azithro for planned short course. will follow, thank you, d/w primary team.
[2018-07-13] MEDS: 0.9% NaCl Peripheral Flush Adult/Peds IV (20:59)
[2018-07-14 03:02] VITALS: PULSE 67
[2018-07-14 04:18] VITALS: BP 149/86; PULSE 82; RESP 18; TEMP 36.4; O2SAT 93
[2018-07-14] MEDS: 0.9% NaCl Peripheral Flush Adult/Peds IV (05:09)
[2018-07-14 06:32] VITALS: PULSE 71
[2018-07-14 07:03] LABS: Hemoglobin 14.2 g/dl (13.0-16.5); Mean Corp Hgb Conc 31.6 g/gl (32-36); Mean Corpuscular Hgb 26.8 pg (27.0-32.0); Mean Corpuscular Volume 85.1 fL (80-94); Platelet Count 206 K/mm3 (150-450); RBC Distribution Width CV 15.2 % (11.6-14.6); RBC Distribution Width SD 47.4 fl (35.1-43.9); Red Blood Count 5.29 M/mm3 (4.6-6.2); Scan Indicated on CBC? Y/N NO; White Blood Count 11.5 K/mm3 (4.4-11.0)
[2018-07-14 07:19] VITALS: PULSE 64; RESP 16; O2SAT 98
[2018-07-14] MEDS: Ipratropium/Albuterol Sulfate 3 ML AMPUL.NEB INHALATION (07:19)
[2018-07-14 07:33] LABS: Anion Gap 5 (5-15); BUN 24 mg/dL (7-18); BUN/Creat Ratio 19.5 RATIO (10-20); Calcium,Total 8.7 mg/dL (8.5-10.1); Chloride 113 mmol/L (98-107); Creatinine, Serum 1.23 mg/dL (0.70-1.30); EST Glomerular Filtration Rate 65 mL/min (>60); Est Glom Filt Rate - Afr Amer 78 mL/min (>60); Estimated Creatinine Clearance 56.15 ml/min; Glucose 138 mg/dL (74-106); Potassium 5.3 mmol/L (3.5-5.1); Sodium Level 135 mmol/L (136-145)
[2018-07-14] MEDS: DULoxetine Hcl 60 MG Capsule PO (09:08)
[2018-07-14] MEDS: Losartan Potassium 100 MG Tablet PO (09:08)
[2018-07-14] MEDS: Heparin Injection (Vial) 5,000 UNIT/ML VIAL 5000 UNIT SC (09:08)
[2018-07-14] MEDS: buPROPion (XL) 300 MG TABLET.XL PO (09:09)
[2018-07-14] MEDS: Azithromycin 250 MG Tablet 500 MG PO (09:09)
[2018-07-14] MEDS: Baclofen 10 MG Tablet PO (09:09)
[2018-07-14] MEDS: QUEtiapine 100 MG Tablet PO (09:09)
[2018-07-14 10:00] VITALS: BP 155/82; PULSE 84; RESP 20; TEMP 36.1; O2SAT 93; O2SAT 94
[2018-07-14 10:39] VITALS: PULSE 81
--- NOTE | 2018-07-14 10:44 | PCM.DC ---
- Discharge Diagnoses Current Active Problems: Current Active and Chronic Problems COPD with exacerbation (Acute) Acute bronchitis (Acute) Sepsis (Acute) Hyponatremia (Acute) Pyoderma gangrenosum (Chronic) Cellulitis (Acute) You will use the following diet at home:: Calorie/Carbohydrate Controlled (specify 1200, 1400, etc), Cardiac Discharge Activity: Return to Normal Activity Call your doctor if you observe: Shortness of breath, Dizziness, Fainting spells, Chest pain Allergies/Adverse Reactions: Allergies aspirin Allergy (Verified 07/12/18 12:42) Anaphylaxis Penicillins Allergy (Verified 07/12/18 12:42) Hives Medications to take at Discharge Albuterol Aerosols [Ventolin Aerosols] 2.5 mg INHALATION Q6H PRN PRN 11/26/16 Albuterol Inhaler [Ventolin Hfa] 2 puff INHALATION Q6H PRN PRN 11/26/16 Quetiapine Fumarate [Seroquel XR] 200 mg PO QHS 11/26/16 Triamcinolone 0.1% Cream [Kenalog] 1 applic TOPICAL TID 04/29/17 Umeclidinium [place] [Incruse Ellipta] 1 puff INHALATION DAILY 04/29/17 buPROPion XL [Wellbutrin Xl] 300 mg PO DAILY 04/29/17 Baclofen 10 mg PO BID 07/12/18 Duloxetine HCl 60 mg PO DAILY 07/12/18 Losartan Potassium 100 mg PO DAILY 07/12/18 Prednisone See Taper PO DAILY #30 tablet 07/14/18 The following prescriptions were given: Prednisone See Taper PO DAILY #30 tablet Primary Care Physician: Rey Knott MD [Primary Care Provider] - Please follow up with your Primary Care Physician in: 1 Week Test Results: Test results from this visit will be discussed in further detail at your follow-up appointment, if applicable. Proposed Discharge Date: 07/14/18
--- NOTE | 2018-07-14 10:55 | PCM.DC.SUM ---
Discharge Date and Diagnosis Date of Admission: 07/12/18 Date of Discharge: 07/14/18 - Primary Discharge Diagnosis Active and Suspected Problems 1. Acute sepsis secondary to acute COPD exacerbation as a result of rhinovirus 2. Pyoderma gangrenosum, chronic-acute cellulitis ruled out 3. Chronic kidney disease stage III 4. Hyponatremia 5. Hypertension 6. Depression/PTSD 7. Morbid obesity 8. MANDI - Secondary Discharge Diagnosis Chronic Problems Pyoderma gangrenosum (Chronic) MANDI (obstructive sleep apnea) (Chronic) Morbid obesity (Chronic) CKD (chronic kidney disease) stage 3, GFR 30-59 ml/min (Chronic) Hospital Course and Treatment Imaging Results: Diagnostic Data Chest X-Ray 07/12/18 12:59 IMPRESSION: No acute abnormality is seen. Electronically Signed: Stephen Atwood, at 15:02 EDT , Service support , Lower Extremity CT 07/12/18 15:05 IMPRESSION: Skin thickening and subcutaneous fatty stranding of the anterolateral right leg consistent with cellulitis. There is no evidence of abscess or soft tissue gas. Electronically Signed: Manuel Garcia MD at 17:25 EDT , Service support , Consultations 07/12/18 15:39 Consult: Onc/Wound/fire protection equipment technician Routine Comment: Dr. Mckeon- ID Operations: None Procedures: None Summary of Care Provided: The patient is a 58 year old M admitted 07/12/2018 due to shortness of breath. 1. Acute sepsis secondary to acute COPD exacerbation as a result of rhinovirus-respiratory panel positive for rhinovirus. Chest x-ray without acute abnormality. Does not currently follow with pulmonary medicine. Recommend outpatient follow-up with pulmonary medicine at discharge. Patient weaned off of supplemental oxygen. Walking pulse ox completed prior to discharge and patient did not require further supplemental oxygen. Prednisone taper at discharge. Patient declines recommended referral to pulmonary medicine, nephrology and dermatology. He states he cannot afford doctors. Follow-up with primary care physician in 1 week. 2. Pyoderma gangrenosum, chronic-acute cellulitis ruled out-CT of right lower extremity showed skin thickening and subcutaneous fatty stranding of the anterolateral right leg. No evidence of abscess or soft tissue gas. ID consulted. Does not suspect cellulitis. Patient initially received Rocephin and azithromycin. No further antibiotics at discharge. Patient has a history of picking scabs and areas of pyoderma. Patient states he has followed up with dermatology in the past who prescribed him topical medications. Recommended follow-up with dermatology, patient declined. 3. Chronic kidney disease stage III-at baseline, Has been referred to nephrology in the past which she has not followed up with. Recommend outpatient nephrology referral at discharge. It appears he has been referred to Dr. Nicole Ocampo in the past. 4. Hyponatremia-suspect secondary to hypovolemia. Resolved. 5. Hypertension-stable, continue home losartan regimen. 6. Depression/PTSD-continue home duloxetine, bupropion, Seroquel regimen. 7. Morbid obesity-encouraged diet lifestyle modifications. 8. MANDI-continue CPAP regimen. General: Alert, Oriented x3, Cooperative HEENT: Atraumatic, PERRLA, EOMI, Normocephalic Neck: Supple, No JVD, Negative Carotid Bruits Lungs: Diminished, occasional expiratory wheeze Cardiovascular: Regular rate, Regular Rhythm, Normal S1, Normal S2, No murmurs Abdomen: Bowel Sounds Present, Soft, Non Tender, Non-Distended Extremities: No clubbing, No cyanosis, No edema, Capillary Refill Less than 3 Seconds Skin: Scattered erythema and pyoderma right lower extremity Musculoskeletal: No Tenderness to Palpation of Joints or Extremities Neurological: Cranial nerves II-XII grossly intact, Neuro grossly intact Psych/Mental Status: Normal Affect, Appropriate Patient seen and examined prior to discharge. Physical assessment as noted above. Patient is stable for discharge with follow up recommendations as noted above. This patient was seen by ROXANA Peña under the supervision of Dr. Talley. - Physical Exam Vital Signs Temp Pulse Resp BP Pulse Ox 97.6 F L 64 16 149/86 H 98 07/14/18 04:18 07/14/18 07:19 07/14/18 07:19 07/14/18 04:18 07/14/18 07:19 Oxygen Flow Rate (L/min) 2 Oxygen Delivery Method Room Air Weight: 288 lb 5.834 oz Body Mass Index (BMI) 48.0 Intake and Output for Last 24 Hours 07/12/18 07/13/18 07/14/18 23:59 23:59 23:59 Intake Total 1497 / 1497 3862 / 3862 60 / 60 Output Total 1350 / 1350 2275 / 2275 Balance 147 / 147 1587 / 1587 60 / 60 Microbiology Past 72 Hours 07/12/18 19:05 Respiratory Panel (PCR) - Final Mucosa - Nose Rhinovirus 07/12/18 13:34 Influenza Types A,B Direct FA (TOAN) - Final Mucosa - Nose Laboratory Tests Past 24 Hrs 07/14/18 07/14/18 06:42 06:42 WBC 11.5 H RBC 5.29 Hgb 14.2 Hct 45.0 MCV 85.1 MCH 26.8 L MCHC 31.6 L RDW 15.2 H RDW Differential 47.4 H Plt Count 206 MPV 11.0 Sodium 135 L Potassium 5.3 H Chloride 113 H Carbon Dioxide 17.0 L Anion Gap 5 BUN 24 H Creatinine 1.23 Estim Creat Clear Calc 56.15 Est GFR (MDRD) Af Amer 78 Est GFR (MDRD) Non-Af 65 BUN/Creatinine Ratio 19.5 Glucose 138 H Calcium 8.7 Discharge Diet: Low fat/ Low Cholesterol, 1800 Calorie Control Diet Discharge Activity: Return to Normal Activity Call your doctor if you observe: Shortness of breath, Dizziness, Fainting spells, Chest pain Home Medications: Medications to take at Discharge Albuterol Aerosols [Ventolin Aerosols] 2.5 mg INHALATION Q6H PRN PRN 11/26/16 Albuterol Inhaler [Ventolin Hfa] 2 puff INHALATION Q6H PRN PRN 11/26/16 Quetiapine Fumarate [Seroquel XR] 200 mg PO QHS 11/26/16 Triamcinolone 0.1% Cream [Kenalog] 1 applic TOPICAL TID 04/29/17 Umeclidinium [place] [Incruse Ellipta] 1 puff INHALATION DAILY 04/29/17 buPROPion XL [Wellbutrin Xl] 300 mg PO DAILY 04/29/17 Baclofen 10 mg PO BID 07/12/18 Duloxetine HCl 60 mg PO DAILY 07/12/18 Losartan Potassium 100 mg PO DAILY 07/12/18 Prednisone See Taper PO DAILY #30 tablet 07/14/18 Following Prescrptions Were Given to Patient: Prednisone See Taper PO DAILY #30 tablet Primary Care Physician: Rey Knott MD [Primary Care Provider] - Please follow up with your Primary Care Physician in: 1 Week Disposition: Home Minutes spent on discharge:: 35 Patient Condition:: Stable Medical Necessity - Tobacco Use Smoking Status: Never smoker Tobacco Use: Non-smoker Meaningful Use Info Meaningful Use Diagnoses (Choose all that apply): None applicable
--- NOTE | 2018-07-14 11:05 | DS.PCM_ITS ---
Discharge Date and Diagnosis Date of Admission: 07/12/18 Date of Discharge: 07/14/18 - Primary Discharge Diagnosis Active and Suspected Problems 1. Acute sepsis secondary to acute COPD exacerbation as a result of rhinovirus 2. Pyoderma gangrenosum, chronic-acute cellulitis ruled out 3. Chronic kidney disease stage III 4. Hyponatremia 5. Hypertension 6. Depression/PTSD 7. Morbid obesity 8. MANDI - Secondary Discharge Diagnosis Chronic Problems Pyoderma gangrenosum (Chronic) MANDI (obstructive sleep apnea) (Chronic) Morbid obesity (Chronic) CKD (chronic kidney disease) stage 3, GFR 30-59 ml/min (Chronic) Hospital Course and Treatment Imaging Results: Diagnostic Data Chest X-Ray 07/12/18 12:59 IMPRESSION: No acute abnormality is seen. Electronically Signed: Stephen Atwood, at 15:02 EDT , Service support , Lower Extremity CT 07/12/18 15:05 IMPRESSION: Skin thickening and subcutaneous fatty stranding of the anterolateral right leg consistent with cellulitis. There is no evidence of abscess or soft tissue gas. Electronically Signed: Manuel Garcia MD at 17:25 EDT , Service support , Consultations 07/12/18 15:39 Consult: Onc/Wound/living coach Routine Comment: Dr. Mckeon- ID Operations: None Procedures: None Summary of Care Provided: The patient is a 58 year old M admitted 07/12/2018 due to shortness of breath. 1. Acute sepsis secondary to acute COPD exacerbation as a result of rhinovirus- respiratory panel positive for rhinovirus. Chest x-ray without acute abnormalit y. Does not currently follow with pulmonary medicine. Recommend outpatient follow-up with pulmonary medicine at discharge. Patient weaned off of supplemental oxygen. Walking pulse ox completed prior to discharge and patient did not require further supplemental oxygen. Prednisone taper at discharge. Patient declines recommended referral to pulmonary medicine, nephrology and dermatology. He states he cannot afford doctors. Follow-up with primary care physician in 1 week. 2. Pyoderma gangrenosum, chronic-acute cellulitis ruled out-CT of right lower extremity showed skin thickening and subcutaneous fatty stranding of the anterolateral right leg. No evidence of abscess or soft tissue gas. ID consulted. Does not suspect cellulitis. Patient initially received Rocephin and azithromycin. No further antibiotics at discharge. Patient has a history of picking scabs and areas of pyoderma. Patient states he has followed up with dermatology in the past who prescribed him topical medications. Recommended follow-up with dermatology, patient declined. 3. Chronic kidney disease stage III-at baseline, Has been referred to nephrology in the past which she has not followed up with. Recommend outpatient nephrology referral at discharge. It appears he has been referred to Dr. Nicole Ocampo in the past. 4. Hyponatremia-suspect secondary to hypovolemia. Resolved. 5. Hypertension-stable, continue home losartan regimen. 6. Depression/PTSD-continue home duloxetine, bupropion, Seroquel regimen. 7. Morbid obesity-encouraged diet lifestyle modifications. 8. MANDI-continue CPAP regimen. General: Alert, Oriented x3, Cooperative HEENT: Atraumatic, PERRLA, EOMI, Normocephalic Neck: Supple, No JVD, Negative Carotid Bruits Lungs: Diminished, occasional expiratory wheeze Cardiovascular: Regular rate, Regular Rhythm, Normal S1, Normal S2, No murmurs Abdomen: Bowel Sounds Present, Soft, Non Tender, Non-Distended Extremities: No clubbing, No cyanosis, No edema, Capillary Refill Less than 3 Seconds Skin: Scattered erythema and pyoderma right lower extremity Musculoskeletal: No Tenderness to Palpation of Joints or Extremities Neurological: Cranial nerves II-XII grossly intact, Neuro grossly intact Psych/Mental Status: Normal Affect, Appropriate Patient seen and examined prior to discharge. Physical assessment as noted above. Patient is stable for discharge with follow up recommendations as noted above. This patient was seen by ROXANA Peña under the supervision of Dr. Talley. - Physical Exam Vital Signs Temp Pulse Resp BP Pulse Ox 97.6 F L 64 16 149/86 H 98 07/14/18 04:18 07/14/18 07:19 07/14/18 07:19 07/14/18 04:18 07/14/18 07:19 Oxygen Flow Rate (L/min) 2 Oxygen Delivery Method Room Air Weight: 288 lb 5.834 oz Body Mass Index (BMI) 48.0 Intake and Output for Last 24 Hours 07/12/18 07/13/18 07/14/18 23:59 23:59 23:59 Intake Total 1497 / 1497 3862 / 3862 60 / 60 Output Total 1350 / 1350 2275 / 2275 Balance 147 / 147 1587 / 1587 60 / 60 Microbiology Past 72 Hours 07/12/18 19:05 Respiratory Panel (PCR) - Final Mucosa - Nose Rhinovirus 07/12/18 13:34 Influenza Types A,B Direct FA (TOAN) - Final Mucosa - Nose Laboratory Tests Past 24 Hrs 07/14/18 07/14/18 06:42 06:42 WBC 11.5 H RBC 5.29 Hgb 14.2 Hct 45.0 MCV 85.1 MCH 26.8 L MCHC 31.6 L RDW 15.2 H RDW Differential 47.4 H Plt Count 206 MPV 11.0 Sodium 135 L Potassium 5.3 H Chloride 113 H Carbon Dioxide 17.0 L Anion Gap 5 BUN 24 H Creatinine 1.23 Estim Creat Clear Calc 56.15 Est GFR (MDRD) Af Amer 78 Est GFR (MDRD) Non-Af 65 BUN/Creatinine Ratio 19.5 Glucose 138 H Calcium 8.7 Discharge Diet: Low fat/ Low Cholesterol, 1800 Calorie Control Diet Discharge Activity: Return to Normal Activity Call your doctor if you observe: Shortness of breath, Dizziness, Fainting spells, Chest pain Home Medications: Medications to take at Discharge Albuterol Aerosols [Ventolin Aerosols] 2.5 mg INHALATION Q6H PRN PRN 11/26/16 Albuterol Inhaler [Ventolin Hfa] 2 puff INHALATION Q6H PRN PRN 11/26/16 Quetiapine Fumarate [Seroquel XR] 200 mg PO QHS 11/26/16 Triamcinolone 0.1% Cream [Kenalog] 1 applic TOPICAL TID 04/29/17 Umeclidinium Indian [Incruse Ellipta] 1 puff INHALATION DAILY 04/29/17 buPROPion XL [Wellbutrin Xl] 300 mg PO DAILY 04/29/17 Baclofen 10 mg PO BID 07/12/18 Duloxetine HCl 60 mg PO DAILY 07/12/18 Losartan Potassium 100 mg PO DAILY 07/12/18 Prednisone See Taper PO DAILY #30 tablet 07/14/18 Following Prescrptions Were Given to Patient: Prednisone See Taper PO DAILY #30 tablet Primary Care Physician: Rey Knott MD [Primary Care Provider] - Please follow up with your Primary Care Physician in: 1 Week Disposition: Home Minutes spent on discharge:: 35 Patient Condition:: Stable Medical Necessity - Tobacco Use Smoking Status: Never smoker Tobacco Use: Non-smoker Meaningful Use Info Meaningful Use Diagnoses (Choose all that apply): None applicable
--- NOTE | 2018-07-18 14:18 | CASEMGMT ---
FREDERICK AVRGAS Discharge Follow-Up Phone Call. Lace: 10 Strata: 3 Discharge Date: 07/14/18 Adm Dx: COPD Exac, Acute Resp Failure, RLE Cellulitis Call to pt to inquire about how he has been doing since being discharged from the hospital. Pt stated, My nose is sore from that rhino, but other than that I'm doing much better. Pt states he was able to get the Prednisone and he is taking it as prescribed. He also states he made a follow-up appt with his PCP. He denies having any questions about the discharge instructions or medications or any other concerns. Pt advised to contact his PCP with any further questions or concerns he may have. FREDERICK VARGAS thanked pt for choosing [facility]. Radha SCOTT RN, CM
== END 2018-07-14 13:20 | disposition home or self-care (01) | DRG 191 ==
LOC: ED 13:22 → PCU 15:05
PROVIDERS: Nurse Practitioner Family; Physician Assistant; Admitting Provider Internal Medicine; Emergency Provider Emergency Medicine; Family Provider Internal Medicine; PCP Internal Medicine; Referring Provider Internal Medicine; Visit Provider Internal Medicine
DX: J44.1 Chronic obstructive pulmonary disease with (acute) exacerbation (principal); L88 Pyoderma gangrenosum; Z68.42 Body mass index [BMI] 45.0-49.9, adult; E87.1 Hypo-osmolality and hyponatremia; J20.6 Acute bronchitis due to rhinovirus; J44.0 Chronic obstructive pulmonary disease with (acute) lower respiratory infection; E66.01 Morbid (severe) obesity due to excess calories; G47.33 Obstructive sleep apnea (adult) (pediatric); I12.9 Hypertensive chronic kidney disease with stage 1 through stage 4 chronic kidney disease, or unspecified chronic kidney disease; N18.3 Chronic kidney disease, stage 3 (moderate); F32.9 Major depressive disorder, single episode, unspecified; F43.10 Post-traumatic stress disorder, unspecified
CPT/HCPCS: 36415; 71046; 73701; 80048; 80053; 81001; 83605; 84484; 85025; 85027; 87040; 87633; 87641; 87804; 93005; 94640; 94667; 94668; 99283; J7030; Q9967; A4216

== ENCOUNTER 2018-12-31 12:30 | Observation (INO) | payer MEDICARE, SELFPAY ==
[2018-07-12 15:47] VITALS: BMI 48.0
[2018-12-31] VITALS (11 sets, daily range): BP systolic 106–150; BP diastolic 66–94; PULSE 68–105; RESP 16–27; TEMP 36.4–39.1; O2SAT 93–97; BMI 47.5; BMI 47.6
--- NOTE | 2018-12-31 13:01 | RAD_ITS ---
STUDY: X-RAY CHEST REASON FOR EXAM: Male, 58 years old. Shortness of breath. Chills. TECHNIQUE: Single frontal view of the chest. COMPARISON: July 12, 2018 FINDINGS: Hyperexpansion unchanged. There is no demonstrated pleural abnormality. Stable borderline cardiomegaly. Normal mediastinum and jose. Normal visualized pulmonary arteries. Normal visualized aortic arch and descending thoracic aorta. Normal visualized thoracic spine. Normal visualized ribs, clavicles, and shoulders. There is no demonstrated abnormality of the visualized soft tissue structures of the upper abdomen. RAD/Chest 1 View (Portable) IMPRESSION: No change and no acute finding. Electronically Signed: Jesus Salazar MD at 13:44 EDT , Service support ,
--- NOTE | 2018-12-31 13:01 | EKG12_ITS ---
Test Reason : GENERAL ILLNESS Blood Pressure : / mmHG Vent. Rate : 098 BPM Atrial Rate : 098 BPM P-R Int : 152 ms QRS Dur : 074 ms QT Int : 352 ms P-R-T Axes : 042 029 040 degrees QTc Int : 449 ms Sinus rhythm with Premature atrial complexes Low Voltage QRS (Limb Leads) Poor R- wave Progression Confirmed by OTILIO GUSMAN, ELIZABET ([id number]), newspaper photo editor BIENVENIDO KIM ([id number]) on 01/02/2019 11:30:55 AM Referred By: FUAD Confirmed By:ELIZABET YAÑEZ MD
[2018-12-31] MEDS: Ipratropium/Albuterol Sulfate 3 ML AMPUL.NEB INHALATION ×2 (13:12→19:02)
[2018-12-31] MEDS: 0.9% Normal Saline 1,000 ML 999 ML IV (13:20)
[2018-12-31] MEDS: MethylPREDNISolone 125 MG/2 ML Vial IV (13:20)
[2018-12-31] MEDS: Acetaminophen 325 MG Tablet 650 MG PO (13:20)
[2018-12-31 13:23] LABS: Absolute Lymphocyte Count 0.61 X10^3/uL (0.83-4.51); Absolute Neutrophil Count 19.1 X10^3/uL (2.0-7.7); Basophil# 0.06 X10^3/uL; Basophil% 0.3 % (0-1); Eosinophil# 0.06 X10^3/uL; Eosinophils% 0.3 % (0-5); Hemoglobin 14.8 g/dL (13.0-16.5); Lymphocyte # 0.61 X10^3/ul (4.0); Lymphocyte % 2.9 % (19-41); Mean Corp Hgb Conc 33.6 g/dL (32-36); Mean Corpuscular Hgb 28.7 pg (27.0-32.0); Mean Corpuscular Volume 85.4 fL (80-94); Mean Platelet Vol. 10.2 fl (6.2-12.0); Monocyte# 1.36 X10^3/uL; Monocyte% 6.4 % (0-10); NRBC Flagged by Analyzer 0 % (0-5); Neutrophil # 19.11 X10^3/uL (2.7-7.7); Neutrophil % 89.5 % (47-70); POSITIVE MORPHOLOGY YES; Platelet Count 198 K/mm3 (150-450); RBC Distribution Width CV 14.1 % (11.6-14.6); RBC Distribution Width SD 43.6 fl (35.1-43.9); Red Blood Count 5.15 M/mm3 (4.6-6.2); White Blood Count 21.3 K/mm3 (4.4-11.0)
[2018-12-31 13:27] LABS: Differential Indicated SCAN CRITERIA MET
--- NOTE | 2018-12-31 13:27 | ED.DCSUM_ITS ---
History of Present Illness Chief Complaint: General Illness Informant: Patient Onset: 3 Context: Gradual Onset Timing: Continuous Current Severity: Moderate Maximum Severity: Moderate Narrative: Patient states for the last several days he has been malaise/week, having subjective fevers and chills, wheezing with an increased cough but no sputum production, feels like his COPD is worse, and some nausea and mild diarrhea. Denies any blood in his diarrhea. He denies any chest pain. He has chronic pain in his right abdomen as well as his right lower leg from pyogenic gangrenosum, he states those symptoms are stable and as usual, no worse. He states the redness that he has in these areas are chronic and unchanged compared with usual. He is on no oxygen at home for his COPD. He does not smoke anymore. - Past Medical History (1) COPD (chronic obstructive pulmonary disease) Status: Chronic (2) CKD (chronic kidney disease) stage 3, GFR 30-59 ml/min Status: Chronic (3) Morbid obesity Status: Chronic (4) MANDI (obstructive sleep apnea) Status: Chronic (5) Pyoderma gangrenosum Status: Chronic Past Medical History - Allergies and Home Meds Allergies/Adverse Reactions: Allergies aspirin Allergy (Verified 12/31/18 12:31) Anaphylaxis Penicillins Allergy (Verified 12/31/18 12:31) Hives Primary Care Physician: Rey Knott MD [Primary Care Provider] - Lives: With Family Drugs: None - Family History Maternal Family History: Reports: No pertinent history Paternal Family History: Reports: Heart Disease Sibling Family History: Reports: Heart Disease Review of Systems General: Reports: Chills, Fever, Malaise, Subjective. Denies: Sweats Eyes: Denies: Visual changes - bilaterally, Diplopia ENT: Denies: Rhinorrhea, Sore throat Cardiovascular: Denies: Chest pain, Palpitations Respiratory: Reports: Dyspnea, Cough. Denies: Sputum, Dyspnea on exertion, Orthopnea Gastrointestinal: Reports: Abdominal pain, Diarrhea. Denies: Nausea, Vomiting, Melena, Hematochezia Genitourinary: Denies: Dysuria, Hematuria, Frequency Musculoskeletal: Reports: Myalgias, Extremity Pain. Denies: Arthralgias, Neck pain, Back pain, Swelling Skin: Reports: Rash - see HPI; pt states as usual and no recent changes; present for years on right abd and RLE. Denies: Wounds Neurological: Denies: Headache, Weakness, Numbness Physical Exam Vital Signs/Narrative: Vital Signs Temp Pulse Resp BP Pulse Ox 12/31/18 13:12 96 20 H 12/31/18 13:04 94 12/31/18 12:31 102.3 F H 105 H 24 H 150/83 H 93 Inital Vital Signs reviewed: Yes General: Well nourished, Well developed, Obese, No Acute Distress Head: Normocephalic, Atraumatic Eyes: Perrl, EOMI ENT: Moist mucous membranes, No rhinorrhea Neck: Supple, Nontender Cardiovascular: Regular rate, Regular rhythm, No murmurs Respiratory: No distress, Chest nontender, Wheezing - throughout all lung johnson, Diminished - thorughout, symmetrically. Negative for: Rales, Rhonchi Abdomen: Soft, Nondistended, Normal bowel sounds, Tender - abd wall at erythemetous areas. Negative for: Guarding, Rebound tenderness Back: Nontender, Normal Inspection Extremities: Nontender, No edema. Negative for: Calf Tenderness Skin: Normal color, Rash - Large area of right mid/lower abdominal wall erythema with induration and a couple of recent scabs that the patient states he accidentally scratched/rubbed off, without abscess. There is an area of scar tissue or skin graft. Also, similar finding anterior mid right lower leg, there is also an area here that was recently bleeding that appears to have been scratched off, the patient states he rubbed it off on accident somehow recently. Neurological: Alert, Oriented x3, Cranial nerves II-XII grossly intact, Normal Strength, Normal Sensation, Normal Gait Psychological: Normal affect, Normal Mood Diagnostic/Tx/Re-eval Impressions Chest X-Ray 12/31/18 13:01 IMPRESSION: No change and no acute finding. Electronically Signed: Jesus Salazar MD at 13:44 EDT , Service support , 12/31/18 13:01 Chest 1 View (Portable) [RAD] Stat Laboratory Results 12/31/18 12/31/18 12/31/18 13:14 13:14 13:14 WBC 21.3 H RBC 5.15 Hgb 14.8 Hct 44.0 MCV 85.4 MCH 28.7 MCHC 33.6 RDW Std Deviation 43.6 RDW Coeff of Roge 14.1 Plt Count 198 MPV 10.2 Immature Gran % (Auto) 0.600 Neut % (Auto) 89.5 H Lymph % (Auto) 2.9 L [place] % (Auto) 6.4 Eos % (Auto) 0.3 Baso % (Auto) 0.3 Absolute Neuts (auto) 19.1 H Absolute Lymphs (auto) 0.61 L Nucleated RBC % 0 PT 14.9 INR 1.2 APTT 31.4 Sodium 132 L Potassium 3.4 L Chloride 99 Carbon Dioxide 25.0 Anion Gap 8 BUN 14 Creatinine 1.33 H Estim Creat Clear Calc 53.95 Est GFR (MDRD) Af Amer 71 Est GFR (MDRD) Non-Af 59 L BUN/Creatinine Ratio 10.5 Glucose 120 H Lactic Acid Calcium 8.4 L Total Bilirubin 0.80 AST 12 L ALT 16 Alkaline Phosphatase 90 Troponin I 0.022 Total Protein 7.2 Albumin 2.6 L Globulin 4.6 H Albumin/Globulin Ratio 0.6 L Urine Color Urine Clarity Urine pH Ur Specific [place] Urine Protein Urine Glucose (UA) Urine Ketones Urine Occult Blood Urine Nitrite Urine Bilirubin Urine Urobilinogen Ur Leukocyte Esterase Urine RBC Urine WBC Ur Squamous Epith Cells Urine Bacteria Urine Mucus 12/31/18 12/31/18 13:14 14:00 WBC RBC Hgb Hct MCV MCH MCHC RDW Std Deviation RDW Coeff of Roge Plt Count MPV Immature Gran % (Auto) Neut % (Auto) Lymph % (Auto) [place] % (Auto) Eos % (Auto) Baso % (Auto) Absolute Neuts (auto) Absolute Lymphs (auto) Nucleated RBC % PT INR APTT Sodium Potassium Chloride Carbon Dioxide Anion Gap BUN Creatinine Estim Creat Clear Calc Est GFR (MDRD) Af Amer Est GFR (MDRD) Non-Af BUN/Creatinine Ratio Glucose Lactic Acid 1.2 Calcium Total Bilirubin AST ALT Alkaline Phosphatase Troponin I Total Protein Albumin Globulin Albumin/Globulin Ratio Urine Color Keesha Urine Clarity Sl. Cloudy Urine pH 7.0 Ur Specific [place] 1.010 Urine Protein 100 H Urine Glucose (UA) Normal Urine Ketones 5 H Urine Occult Blood 250 H Urine Nitrite Negative Urine Bilirubin Negative Urine Urobilinogen 1 H Ur Leukocyte Esterase 25 H Urine RBC > 100 SEEN Urine WBC 0-5 SEEN Ur Squamous Epith Cells 0 SEEN Urine Bacteria 0 SEEN Urine Mucus 0 SEEN - Rhythm Strip Rhythm Strip: Sinus Rhythm Rate: 98 Ectopy: PAC(s) - EKG Initial EKG Interpretation: Sinus Rhythm, No Acute Injury Pattern - PACs, nml EKG otherwise - Medical Decision Making Patient is feeling better after medications for his myalgias, fever, and COPD. No pneumonia on the x-ray, however he probably has bronchitis and due to his COPD flareup along with that, meets criteria for sepsis. His lactate is within normal limits, his blood pressures remained stable. Plan is for inpatient observation/admission because the patient still feels dyspneic and very weak and prefers to stay in the hospital based on the symptoms although he is not hypoxic; he was given steroids but before that his white blood count is over 21. Urine shows blood but no signs of infection. ED Disposition - Plan for ED Patient: Disposition: Acute Care Hospital [facility] Diagnosis: Sepsis, COPD exacerbation Referrals: Rey Knott MD [Primary Care Provider] -
[2018-12-31 13:34] LABS: International Normalized Ratio 1.2; Prothrombin Time (Protime)PT. 14.9 SECONDS (11.7-14.9)
[2018-12-31 13:35] LABS: Partial Thromboplast Time 31.4 Seconds (24.1-36.2)
[2018-12-31 13:46] LABS: ALB/GLOB Ratio 0.6 RATIO (0.9-2.4); AST(SGOT) 12 U/L (15-37); Alanine Aminotransfer ALT/SGPT 16 U/L (16-61); Albumin, Serum 2.6 g/dL (3.2-5.0); Alkaline Phosphatase 90 U/L (45-117); Anion Gap 8 (5-15); BUN 14 mg/dL (7-18); BUN/Creat Ratio 10.5 RATIO (10-20); Calcium,Total 8.4 mg/dL (8.5-10.1); Chloride 99 mmol/L (98-107); Creatinine, Serum 1.33 mg/dL (0.70-1.30); EST Glomerular Filtration Rate 59 mL/min (>60); Est Glom Filt Rate - Afr Amer 71 mL/min (>60); Estimated Creatinine Clearance 53.95 ml/min; Globulin 4.6 g/dL (2.2-4.2); Glucose 120 mg/dL (74-106); Lactic Acid 1.2 mmol/L (0.4-2.0); Potassium 3.4 mmol/L (3.5-5.1); Protein, Total 7.2 g/dL (6.4-8.2); Sodium Level 132 mmol/L (136-145)
[2018-12-31 14:10] LABS: Bacteria 0 SEEN /hpf (None Seen); Mucous, Urine 0 SEEN /hpf (<or=2+); Squamous Epithelial Cells - UA 0 SEEN /hpf (0-5)
[2018-12-31 14:11] LABS: Color, Urine Amber (Yellow); Glucose, Dipstick Normal (Normal); Ketone-Dipstick 5 mg/dl (Negative); Leukocyte Esterase-Dipstick 25 /ul (Negative); Nitrite-Dipstick Negative (Negative); Occult Blood-Urine 250 /ul (Negative); Protein-Dipstick 100 mg/dl (Negative); Urine Bilirubin Dipstick Negative (Negative); Urine Clarity Sl. Cloudy (Clear); Urine Urobilinogen 1 mg/dl (Normal)
[2018-12-31 14:16] LABS: Red Blood Cells-Urine > 100 SEEN /hpf (0-5); White Blood Cells 0-5 SEEN /hpf (0-5)
--- NOTE | 2018-12-31 16:45 | PCM.HP.STD ---
Problem List (1) Hypertension Status: Chronic (2) Pyoderma gangrenosum Status: Chronic (3) COPD (chronic obstructive pulmonary disease) Status: Chronic (4) MANDI (obstructive sleep apnea) Status: Chronic (5) CKD (chronic kidney disease) stage 3, GFR 30-59 ml/min Status: Chronic History of Present Illness Date of Admission: 12/31/18 Chief Complaint: Weakness, body aches, malaise. The patient is a 58 year old M with past medical history as mentioned above presented to the emergency room because of weakness, body aches and malaise. His symptoms started this past Tuesday which is 2 days ago with generalized body aches, dull aching pains all over his body, mild, associated with fever and malaise and without aggravating or relieving factors. He complained of chronic dry cough without sputum production and without any worsening coughing or new sputum production. He denies any worsening shortness of breath and he mentioned that he has COPD and he is chronically short of breath without any exacerbation or worsening. He denied chest pain, palpitation, dizziness or lightheadedness. According to the patient, he was started on tapering prednisone this past Tuesday and he is still on prednisone nowadays. Upon arrival to ED, patient was febrile, tachycardic, other vital signs were stable. His routine blood work was remarkable for leukocytosis, potassium of 3.4, creatinine 1.33 which is chronic. His lactic acid was normal. EKG revealed sinus tachycardia with PACs, no acute changes. Troponin was negative. Urinalysis revealed cloudy urine, negative for nitrite, there was only 25 WBCs, more than 100 RBCs, 0-5 WBC and no bacteria seen. Chest x-ray showed no acute findings. Patient received IV fluids, IV Solu-Medrol, DuoNeb nebulizer as well as IV Zithromax in the ED. His heart rates slowed down as well as respiratory rate, pulse ox remained on room air. He is being admitted for SIRS for upper respiratory tract infection/probable viral bronchitis without evidence of acute COPD exacerbation. Past Medical History Past Medical History (Chronic Problems): Chronic Problems Hypertension (Chronic) Pyoderma gangrenosum (Chronic) COPD (chronic obstructive pulmonary disease) (Chronic) MANDI (obstructive sleep apnea) (Chronic) Morbid obesity (Chronic) CKD (chronic kidney disease) stage 3, GFR 30-59 ml/min (Chronic) Allergies aspirin Allergy (Verified 12/31/18 12:31) Anaphylaxis Penicillins Allergy (Verified 12/31/18 12:31) Hives Home Medications: Ambulatory Orders Medication Instructions Recorded Albuterol Aerosols [Ventolin 2.5 mg INHALATION Q6H PRN PRN 11/26/16 Aerosols] Albuterol Inhaler [Ventolin Hfa] 2 puff INHALATION Q6H PRN PRN 11/26/16 Quetiapine Fumarate [Seroquel XR] 200 mg PO QHS 11/26/16 Triamcinolone 0.1% Cream [Kenalog] 1 applic TOPICAL TID 04/29/17 Umeclidinium [place] [Incruse 1 puff INHALATION DAILY 04/29/17 Ellipta] buPROPion XL [Wellbutrin Xl] 300 mg PO DAILY 04/29/17 Baclofen 10 mg PO BID 07/12/18 Duloxetine HCl 60 mg PO DAILY 07/12/18 Losartan Potassium 100 mg PO DAILY 07/12/18 Prednisone See Taper PO DAILY #30 tablet 07/14/18 Surgical History: - - Surgical repair of bone fractures. Psychiatric History: Post traumatic stress Lives: With Family Smoking Status: Never smoker Alcohol: None Drugs: None - *Family History Maternal History Items: No pertinent history Paternal History Items: Heart Disease Sibling History Items: Heart Disease Review of Systems Constitutional: Reports: Anorexia, Fever, Malaise, Weakness, Fatigue. Denies: Chills Eyes: Denies: Blurred vision, Double vision, Drainage, Redness HEENT: Denies: Difficulty Hearing, Ear Pain, Eye Pain, Nasal Congestion, Sore Throat Cardiovascular: Denies: Chest Pain, Chest Pressure, Chest Tightness, Heaviness, Light Headedness, Orthopnea, Paroxysmal Noc. Dyspnea, Syncope Respiratory: Reports: Cough. Denies: Pleuritic Pain, Shortness of Breath, Sputum production, Wheezing Gastrointestinal: Denies: Abdominal Pain, Constipation, Diarrhea, Nausea, Vomiting Genitourinary: Denies: Dysuria, Frequency, Hematuria Musculoskeletal: Denies: Arm Pain, Back Pain, Foot Pain Skin: Denies: Dryness, Rash Neurological: Denies: Balance problems, Blurred vision, Double vision, Change in Speech, Slurred speech, Confusion, Headaches, Incoordination, Numbness Psychiatric: Reports: Depression. Denies: Anxiety Endocrine: Denies: Change in Body Habitus, Polydipsia, Polyuria VTE Information - Inpt Only VTE Present on Admission: No VTE Mechan Device Prophylaxis: None VTE Pharm Prophylaxis ordered?: No - Physical Exam General: Alert, Oriented x3, Cooperative, No apparent distress HEENT: Atraumatic, PERRLA, EOMI, Normocephalic Oral: Moist Mucosa, No Gingival or Mucosal Lesions/ Ulcerations Neck: Supple, No JVD, Negative Carotid Bruits, Trachea Midline, Thyroid Normal Size and Texture Lungs: Clear to auscultation, No rhonchi, No wheeze, No rales, Diminished, - - Decreased breath sounds bilateral, otherwise clear. Cardiovascular: Regular rate, Regular Rhythm, Normal S1, Normal S2, PMI Normal Abdomen: Bowel Sounds Present, Soft, Non Tender, Non-Distended, No Hepato-splenomegaly Extremities: No clubbing, No cyanosis, No edema Skin: No breakdown, Rash Present Lymphatic: No Cervical, Supraclavicular, or Inguinal Adenopathy Neurological: Cranial nerves II-XII grossly intact, Motor Exam 5/5 strength throughout Psych/Mental Status: Normal Affect, Appropriate, Alert and oriented to time, place, person, mood and affect Vital Signs Temp Pulse Resp BP Pulse Ox 98.8 F 83 19 H 138/94 H 95 12/31/18 14:55 12/31/18 16:35 12/31/18 16:35 12/31/18 16:35 12/31/18 16:35 Oxygen Delivery Method Room Air Weight: 286 lb Body Mass Index (BMI) 47.5 Intake and Output for Last 24 Hours 12/29/18 12/30/18 12/31/18 23:59 23:59 23:59 Intake Total 1000 / 1000 Balance 1000 / 1000 Laboratory Tests Past 24 Hrs 12/31/18 12/31/18 12/31/18 13:14 13:14 13:14 WBC 21.3 H RBC 5.15 Hgb 14.8 Hct 44.0 MCV 85.4 MCH 28.7 MCHC 33.6 RDW Std Deviation 43.6 RDW Coeff of Roge 14.1 Plt Count 198 MPV 10.2 Immature Gran % (Auto) 0.600 Neut % (Auto) 89.5 H Lymph % (Auto) 2.9 L [place] % (Auto) 6.4 Eos % (Auto) 0.3 Baso % (Auto) 0.3 Absolute Neuts (auto) 19.1 H Absolute Lymphs (auto) 0.61 L Nucleated RBC % 0 PT 14.9 INR 1.2 APTT 31.4 Sodium 132 L Potassium 3.4 L Chloride 99 Carbon Dioxide 25.0 Anion Gap 8 BUN 14 Creatinine 1.33 H Estim Creat Clear Calc 53.95 Est GFR (MDRD) Af Amer 71 Est GFR (MDRD) Non-Af 59 L BUN/Creatinine Ratio 10.5 Glucose 120 H Lactic Acid Calcium 8.4 L Total Bilirubin 0.80 AST 12 L ALT 16 Alkaline Phosphatase 90 Troponin I 0.022 Total Protein 7.2 Albumin 2.6 L Globulin 4.6 H Albumin/Globulin Ratio 0.6 L Urine Color Urine Clarity Urine pH Ur Specific [place] Urine Protein Urine Glucose (UA) Urine Ketones Urine Occult Blood Urine Nitrite Urine Bilirubin Urine Urobilinogen Ur Leukocyte Esterase Urine RBC Urine WBC Ur Squamous Epith Cells Urine Bacteria Urine Mucus 12/31/18 12/31/18 13:14 14:00 WBC RBC Hgb Hct MCV MCH MCHC RDW Std Deviation RDW Coeff of Roge Plt Count MPV Immature Gran % (Auto) Neut % (Auto) Lymph % (Auto) [place] % (Auto) Eos % (Auto) Baso % (Auto) Absolute Neuts (auto) Absolute Lymphs (auto) Nucleated RBC % PT INR APTT Sodium Potassium Chloride Carbon Dioxide Anion Gap BUN Creatinine Estim Creat Clear Calc Est GFR (MDRD) Af Amer Est GFR (MDRD) Non-Af BUN/Creatinine Ratio Glucose Lactic Acid 1.2 Calcium Total Bilirubin AST ALT Alkaline Phosphatase Troponin I Total Protein Albumin Globulin Albumin/Globulin Ratio Urine Color [place]ha Urine Clarity Sl. Cloudy Urine pH 7.0 Ur Specific [place] 1.010 Urine Protein 100 H Urine Glucose (UA) Normal Urine Ketones 5 H Urine Occult Blood 250 H Urine Nitrite Negative Urine Bilirubin Negative Urine Urobilinogen 1 H Ur Leukocyte Esterase 25 H Urine RBC > 100 SEEN Urine WBC 0-5 SEEN Ur Squamous Epith Cells 0 SEEN Urine Bacteria 0 SEEN Urine Mucus 0 SEEN Clinical Impression(s) from Imaging Studies Chest X-Ray 12/31/18 13:01 IMPRESSION: No change and no acute finding. Electronically Signed: Jesus Salazar MD at 13:44 EDT , Service support , Assessment/Plan This is a 58 years old male patient presented to the emergency room because of symptoms of weakness, generalized body aches and malaise as well as fever, found to have SIRS secondary to upper respiratory infection/probable viral bronchitis and he is being admitted for treatment. #1 SIRS/URTI/probable viral bronchitis: Without evidence of acute COPD exacerbation. Patient denied any worsening shortness of breath or new cough or new sputum production. Chest x-ray reviewed, no acute findings. Patient was febrile and tachycardic upon arrival to ER and after treatment, vital signs improved. He remained on room air without oxygen needs. Shunt was started on prednisone taper 5 days ago. Leukocytosis is reactive to steroids. Plan: Admit to [facility] floor for observation, gentle IV fluids for hydration, Tylenol as needed, respiratory panel for viruses, start empiric p.o. Levaquin, oral prednisone, bronchodilators, chest physical therapy, incentive spirometer, repeat CBC and BMP tomorrow morning, PT OT evaluation and treatment. #2 mild hypokalemia: Potassium is 3.4, plan to replace potassium with oral potassium chloride 40 mg x 1, repeat BMP tomorrow morning. #3 COPD: Plan as above, bronchodilators, oral steroids, Levaquin. Patient remained on room air and pulse ox has been above 92%. He does not look dyspneic or tachypneic during the examination. #4 hypertension: Blood pressure stable, continue losartan. #5 depression/PTSD: Continue Wellbutrin and Seroquel. #6 stage III chronic kidney disease: Baseline creatinine has been around 1.3 to 1.6 mg/dL. Admission creatinine is 1.33, stable at baseline. #7 pyoderma gangrenosum: Chronic, patient has skin rash on the right lower abdomen. No open wounds. Plan to continue topical Kenalog. #8 DVT prophylaxis: Low risk patient, no prophylaxis indicated, ambulate. This note was generated with [employer] software. It may contain incorrect words, spelling, and punctuation that were not noted in checking the note before signing. Code Visit OBSV E&M: 49309 Initial observation care L2
[2018-12-31] MEDS: 0.9% Normal Saline 1,000 ML 75 ML IV (17:34)
--- NOTE | 2018-12-31 17:43 | US_ITS ---
STUDY: RENAL ULTRASOUND - COMPLETE REASON FOR EXAM: Male, 58 years old. Microhematuria TECHNIQUE: Ultrasound evaluation of the kidneys was performed with real-time and static gamboa-scale imaging. COMPARISON: Prior study of 07/30/2016 FINDINGS: The study is limited secondary to patient obesity. RIGHT KIDNEY: Normal location of the right kidney, which is normal in size. The right kidney measures 11.4 x 5.5 x 5.3 cm. There is a normal cortex of the right kidney. The renal cortex measures 1.5 cm. There is no right renal mass or cyst. There are no right renal calculi. There is no right hydronephrosis. DISTAL RIGHT URETER: There is non-visualization of the distal right ureter. There is no demonstrated right ureterovesical junction calculus. There is no demonstrated right ureteral jet. LEFT KIDNEY: Normal location of the left kidney, which is normal in size. The left kidney measures 12.7 x 6.3 x 5.7 cm. There is a normal cortex of the left kidney. The renal cortex measures 1.2 cm. There is a 5.1 x 5.5 x 5.2 cm left renal cyst. There are no left renal calculi. There is no left hydronephrosis. DISTAL LEFT URETER: There is non-visualization of the distal left ureter. There is no demonstrated left ureterovesical junction calculus. There is no demonstrated left ureteral jet. BLADDER: The bladder was not visualized. US/Kidney and Bladder IMPRESSION: 5.1 x 5.5 x 5.2 cm left renal cyst. The right kidney is normal. Electronically Signed: Manuel Garcia MD at 20:38 EDT , Service support ,
[2018-12-31] MEDS: Triamcinolone 0.5% Cream 1 APPLIC TOPICAL (21:26)
[2018-12-31] MEDS: Baclofen 10 MG Tablet PO (21:27)
[2018-12-31] MEDS: QUEtiapine 100 MG Tablet 200 MG PO (21:27)
[2019-01-01 01:40] VITALS: PULSE 74; RESP 18
[2019-01-01] MEDS: Ipratropium/Albuterol Sulfate 3 ML AMPUL.NEB INHALATION ×2 (01:40→06:51)
[2019-01-01 05:00] VITALS: BP 121/76; PULSE 63; RESP 16; TEMP 36.6; O2SAT 97
[2019-01-01] MEDS: Triamcinolone 0.5% Cream 1 APPLIC TOPICAL (06:31)
[2019-01-01] MEDS: levoFLOXacin 500 MG Tablet PO (06:31)
[2019-01-01 06:51] VITALS: PULSE 72; RESP 19; O2SAT 98
[2019-01-01 06:51] LABS: Absolute Lymphocyte Count 0.55 X10^3/uL (0.83-4.51); Basophil# 0.04 X10^3/uL; Basophil% 0.2 % (0-1); Eosinophil# 0.06 X10^3/uL; Eosinophils% 0.3 % (0-5); Hematocrit 50.3 % (40-54); Hemoglobin 15.9 g/dL (13.0-16.5); Lymphocyte # 0.55 X10^3/ul (4.0); Lymphocyte % 3.2 % (19-41); Mean Corp Hgb Conc 31.6 g/dL (32-36); Mean Corpuscular Hgb 27.6 pg (27.0-32.0); Mean Corpuscular Volume 87.3 fL (80-94); Mean Platelet Vol. 10.6 fl (6.2-12.0); Monocyte# 0.62 X10^3/uL; Monocyte% 3.6 % (0-10); NRBC Flagged by Analyzer 0 % (0-5); Neutrophil % 91.8 % (47-70); POSITIVE DIFFERENTIAL YES; POSITIVE MORPHOLOGY YES; Platelet Count 208 K/mm3 (150-450); RBC Distribution Width SD 45.2 fl (35.1-43.9); Red Blood Count 5.76 M/mm3 (4.6-6.2); White Blood Count 17.4 K/mm3 (4.4-11.0)
[2019-01-01 07:09] LABS: Differential Indicated SCAN CRITERIA MET
[2019-01-01 07:16] LABS: Anion Gap 4 (5-15); BUN 21 mg/dL (7-18); BUN/Creat Ratio 16.5 RATIO (10-20); Chloride 105 mmol/L (98-107); Creatinine, Serum 1.27 mg/dL (0.70-1.30); EST Glomerular Filtration Rate 62 mL/min (>60); Est Glom Filt Rate - Afr Amer 75 mL/min (>60); Glucose 208 mg/dL (74-106); Potassium 4.1 mmol/L (3.5-5.1); Sodium Level 137 mmol/L (136-145)
--- NOTE | 2019-01-01 09:35 | DCINST_ITS ---
- Discharge Diagnoses Current Active Problems: Current Active and Chronic Problems Sepsis (Acute) COPD exacerbation (Chronic) Hypertension (Chronic) You will use the following diet at home:: Cardiac Your food should be the consistency of: Regular Discharge Activity: Return to Normal Activity Weight Bearing Status: Full weight bearing Call your doctor if you observe: Fever of 101 or Higher, Shortness of breath, Dizziness, Fainting spells, Chest pain, Increased palpitations (irregular heartbeat), Uncontrolled pain Allergies/Adverse Reactions: Allergies aspirin Allergy (Verified 12/31/18 12:31) Anaphylaxis Penicillins Allergy (Verified 12/31/18 12:31) Hives Medications to take at Discharge Albuterol Aerosols [Ventolin Aerosols] 2.5 mg INHALATION Q6H PRN PRN 11/26/16 Albuterol Inhaler [Ventolin Hfa] 2 puff INHALATION Q6H PRN PRN 11/26/16 Quetiapine Fumarate [Seroquel XR] 200 mg PO QHS 11/26/16 Triamcinolone 0.1% Cream [Kenalog] 1 applic TOPICAL TID 04/29/17 Umeclidinium [place] [Incruse Ellipta] 1 puff INHALATION DAILY 04/29/17 buPROPion XL [Wellbutrin Xl] 300 mg PO DAILY 04/29/17 Baclofen 10 mg PO BID 07/12/18 Duloxetine HCl 60 mg PO DAILY 07/12/18 Losartan Potassium 100 mg PO DAILY 07/12/18 Prednisone See Taper PO DAILY #18 tab 01/01/19 levoFLOXacin tablet [Levaquin tablet] 500 mg PO DAILY@0600 #4 tab 01/01/19 The following prescriptions were given: levoFLOXacin tablet [Levaquin tablet] 500 mg PO DAILY@0600 #4 tab Transmission Status: Pending to [facility] Prednisone See Taper PO DAILY #18 tab Transmission Status: Pending to [facility] Primary Care Physician: Rey Knott MD [Primary Care Provider] - Please follow up with your Primary Care Physician in: 1-2 week. Test Results: Test results from this visit will be discussed in further detail at your follow- up appointment, if applicable.
[2019-01-01] MEDS: predniSONE 20 MG Tablet 40 MG PO (09:50)
[2019-01-01] MEDS: DULoxetine Hcl 60 MG Capsule PO (09:52)
[2019-01-01] MEDS: buPROPion (XL) 300 MG TABLET.XL PO (09:52)
[2019-01-01] MEDS: Baclofen 10 MG Tablet PO (09:52)
[2019-01-01] MEDS: Losartan Potassium 100 MG Tablet PO (09:52)
[2019-01-01 11:00] VITALS: BP 124/71; PULSE 66; RESP 18; TEMP 36.7; O2SAT 98
--- NOTE | 2019-01-01 12:48 | PCM.DC.SUM ---
Discharge Date and Diagnosis Date of Admission: 12/31/18 Date of Discharge: 01/01/19 - Primary Discharge Diagnosis #1 systemic inflammatory response syndrome. No evidence of sepsis, severe sepsis or septic shock. #2 URTI/probable viral bronchitis. No evidence of acute COPD exacerbation. #3 mild hypokalemia. #4 microscopic hematuria. - Secondary Discharge Diagnosis Chronic Problems COPD exacerbation (Chronic) Hypertension (Chronic) Pyoderma gangrenosum (Chronic) COPD (chronic obstructive pulmonary disease) (Chronic) MANDI (obstructive sleep apnea) (Chronic) Morbid obesity (Chronic) CKD (chronic kidney disease) stage 3, GFR 30-59 ml/min (Chronic) Hospital Course and Treatment Imaging Results: Clinical Impression(s) from Imaging Studies Chest X-Ray 12/31/18 13:01 IMPRESSION: No change and no acute finding. Electronically Signed: Jesus Salazar MD at 13:44 EDT , Service support , Renal Ultrasound 12/31/18 17:43 IMPRESSION: 5.1 x 5.5 x 5.2 cm left renal cyst. The right kidney is normal. Electronically Signed: Manuel Garcia MD at 20:38 EDT , Service support , Operations: None Procedures: None Summary of Care Provided: Patient seen and examined on day of discharge and appeared to be stable to be discharged home. He is feeling much better, has no more fever, denies any more body aches. Denies any worsening shortness of breath, cough or sputum production. His vital signs are stable, maintained pulse ox on room air. The patient is a 58 year old M presented to the emergency room because of weakness, denies body aches and malaise as well as fever and was found to have sepsis secondary to URTI and probable viral bronchitis. Initially, there was a concern that patient may have acute COPD exacerbation. Patient denied any worsening shortness of breath, denies any new cough or new sputum production. His pulse ox remained normal on room air throughout the stay. Upon arrival to ER, patient was febrile and tachycardic and he did qualify for SIRS and there was no source of infection and that makes sepsis is not the diagnosis. Chest x-ray showed no acute findings. Pneumonia ruled out. Patient was admitted to the floor, started on IV fluids, Tylenol PRN and bronchodilators as well as prednisone and empiric Levaquin. Next day, patient felt much better, had no more fever and his symptoms improved. He remained without worsening shortness of breath or cough and no sputum production. He did have leukocytosis which was attributed to prednisone that he has been taking for the last 5 days before admission. His potassium was slightly low which was replaced and corrected. His lactic acid was normal. Respiratory panel for viruses were negative. Patient was found to have microscopic hematuria on urinalysis and he was asymptomatic. Upon revision of his chart, he did have this microscopic hematuria on previous urinalysis 2 years ago but he never had an imaging study of his kidneys in the past. Kidney and bladder ultrasound ordered but because it is only day, it cannot be done today. Order for kidney ultrasound was given to be done as outpatient and to be sent to Dr. Knott who is the patient's PCP. Patient discharged home in a stable medical condition, continued on his prednisone taper starting 30 mg p.o. daily for 3 days and then down to 20 for 3 days and then 10 for 3 days and then to stop, started on Levaquin 500 mg p.o. daily empirically for 5 days of treatment, recommended follow-up with PCP in 1 to 2 weeks. - Physical Exam General: Alert, Oriented x3, Cooperative, No apparent distress HEENT: Atraumatic, PERRLA, EOMI, Normocephalic Oral: Moist Mucosa, No Gingival or Mucosal Lesions/ Ulcerations Neck: Supple, No JVD, Negative Carotid Bruits, Trachea Midline, Thyroid Normal Size and Texture Lungs: Clear to auscultation, Normal air movement, No rhonchi, No wheeze, No rales Cardiovascular: Regular rate, Regular Rhythm, Normal S1, Normal S2, PMI Normal Abdomen: Bowel Sounds Present, Soft, Non Tender, Non-Distended, No Hepato-splenomegaly Extremities: No clubbing, No cyanosis, No edema Skin: No breakdown, Rash Present Lymphatic: No Cervical, Supraclavicular, or Inguinal Adenopathy Neurological: Cranial nerves II-XII grossly intact, Neuro grossly intact Psych/Mental Status: Normal Affect, Appropriate Vital Signs Temp Pulse Resp BP Pulse Ox 98.0 F 66 18 124/71 H 98 01/01/19 11:00 01/01/19 11:00 01/01/19 11:00 01/01/19 11:00 01/01/19 11:00 Oxygen Delivery Method Room Air Weight: 286 lb Body Mass Index (BMI) 47.5 Intake and Output for Last 24 Hours 12/30/18 12/31/18 01/01/19 23:59 23:59 23:59 Intake Total 1655 / 1655 1458.75 / 1458.75 Output Total 575 / 575 Balance 1655 / 1655 883.75 / 883.75 Microbiology Past 72 Hours 12/31/18 19:00 Respiratory Panel (PCR) - Final Mucosa - Nasopharyngeal 12/31/18 14:00 Urine Culture - Final Urine, Clean Catch Mixed Gram Positive Organisms Laboratory Tests Past 24 Hrs 12/31/18 12/31/18 12/31/18 13:14 13:14 13:14 WBC 21.3 H RBC 5.15 Hgb 14.8 Hct 44.0 MCV 85.4 MCH 28.7 MCHC 33.6 RDW Std Deviation 43.6 RDW Coeff of Roge 14.1 Plt Count 198 MPV 10.2 Immature Gran % (Auto) 0.600 Neut % (Auto) 89.5 H Lymph % (Auto) 2.9 L [place] % (Auto) 6.4 Eos % (Auto) 0.3 Baso % (Auto) 0.3 Absolute Neuts (auto) 19.1 H Absolute Lymphs (auto) 0.61 L Nucleated RBC % 0 PT 14.9 INR 1.2 APTT 31.4 Sodium 132 L Potassium 3.4 L Chloride 99 Carbon Dioxide 25.0 Anion Gap 8 BUN 14 Creatinine 1.33 H Estim Creat Clear Calc 53.95 Est GFR (MDRD) Af Amer 71 Est GFR (MDRD) Non-Af 59 L BUN/Creatinine Ratio 10.5 Glucose 120 H Lactic Acid Calcium 8.4 L Total Bilirubin 0.80 AST 12 L ALT 16 Alkaline Phosphatase 90 Troponin I 0.022 Total Protein 7.2 Albumin 2.6 L Globulin 4.6 H Albumin/Globulin Ratio 0.6 L Urine Color Urine Clarity Urine pH Ur Specific [place] Urine Protein Urine Glucose (UA) Urine Ketones Urine Occult Blood Urine Nitrite Urine Bilirubin Urine Urobilinogen Ur Leukocyte Esterase Urine RBC Urine WBC Ur Squamous Epith Cells Urine Bacteria Urine Mucus 12/31/18 12/31/18 01/01/19 13:14 14:00 05:35 WBC 17.4 H RBC 5.76 Hgb 15.9 Hct 50.3 MCV 87.3 MCH 27.6 MCHC 31.6 L RDW Std Deviation 45.2 H RDW Coeff of Roge 14.0 Plt Count 208 MPV 10.6 Immature Gran % (Auto) 0.900 Neut % (Auto) 91.8 H Lymph % (Auto) 3.2 L [place] % (Auto) 3.6 Eos % (Auto) 0.3 Baso % (Auto) 0.2 Absolute Neuts (auto) 16.0 H Absolute Lymphs (auto) 0.55 L Nucleated RBC % 0 PT INR APTT Sodium Potassium Chloride Carbon Dioxide Anion Gap BUN Creatinine Estim Creat Clear Calc Est GFR (MDRD) Af Amer Est GFR (MDRD) Non-Af BUN/Creatinine Ratio Glucose Lactic Acid 1.2 Calcium Total Bilirubin AST ALT Alkaline Phosphatase Troponin I Total Protein Albumin Globulin Albumin/Globulin Ratio Urine Color Keesha Urine Clarity Sl. Cloudy Urine pH 7.0 Ur Specific [place] 1.010 Urine Protein 100 H Urine Glucose (UA) Normal Urine Ketones 5 H Urine Occult Blood 250 H Urine Nitrite Negative Urine Bilirubin Negative Urine Urobilinogen 1 H Ur Leukocyte Esterase 25 H Urine RBC > 100 SEEN Urine WBC 0-5 SEEN Ur Squamous Epith Cells 0 SEEN Urine Bacteria 0 SEEN Urine Mucus 0 SEEN 01/01/19 05:35 WBC RBC Hgb Hct MCV MCH MCHC RDW Std Deviation RDW Coeff of Roge Plt Count MPV Immature Gran % (Auto) Neut % (Auto) Lymph % (Auto) [place] % (Auto) Eos % (Auto) Baso % (Auto) Absolute Neuts (auto) Absolute Lymphs (auto) Nucleated RBC % PT INR APTT Sodium 137 Potassium 4.1 Chloride 105 Carbon Dioxide 28.0 Anion Gap 4 L BUN 21 H Creatinine 1.27 Estim Creat Clear Calc 56.50 Est GFR (MDRD) Af Amer 75 Est GFR (MDRD) Non-Af 62 BUN/Creatinine Ratio 16.5 Glucose 208 H Lactic Acid Calcium 9.0 Total Bilirubin AST ALT Alkaline Phosphatase Troponin I Total Protein Albumin Globulin Albumin/Globulin Ratio Urine Color Urine Clarity Urine pH Ur Specific [place] Urine Protein Urine Glucose (UA) Urine Ketones Urine Occult Blood Urine Nitrite Urine Bilirubin Urine Urobilinogen Ur Leukocyte Esterase Urine RBC Urine WBC Ur Squamous Epith Cells Urine Bacteria Urine Mucus Discharge Activity: Return to Normal Activity Weight Bearing Status: Full weight bearing Call your doctor if you observe: Fever of 101 or Higher, Shortness of breath, Dizziness, Fainting spells, Chest pain, Increased palpitations (irregular heartbeat), Uncontrolled pain Home Medications: Medications to take at Discharge Albuterol Aerosols [Ventolin Aerosols] 2.5 mg INHALATION Q6H PRN PRN 11/26/16 Albuterol Inhaler [Ventolin Hfa] 2 puff INHALATION Q6H PRN PRN 11/26/16 Quetiapine Fumarate [Seroquel XR] 200 mg PO QHS 11/26/16 Triamcinolone 0.1% Cream [Kenalog] 1 applic TOPICAL TID 04/29/17 Umeclidinium [place] [Incruse Ellipta] 1 puff INHALATION DAILY 04/29/17 buPROPion XL [Wellbutrin Xl] 300 mg PO DAILY 04/29/17 Baclofen 10 mg PO BID 07/12/18 Duloxetine HCl 60 mg PO DAILY 07/12/18 Losartan Potassium 100 mg PO DAILY 07/12/18 Prednisone See Taper PO DAILY #18 tab 01/01/19 levoFLOXacin tablet [Levaquin tablet] 500 mg PO DAILY@0600 #4 tab 01/01/19 Following Prescrptions Were Given to Patient: levoFLOXacin tablet [Levaquin tablet] 500 mg PO DAILY@0600 #4 tab Transmission Status: Received by [facility] Prednisone See Taper PO DAILY #18 tab Transmission Status: Received by [facility] Other Amb Orders: Kidney and Bladder [[place]] Location: None Selected Primary Care Physician: Rey Knott MD [Primary Care Provider] - Please follow up with your Primary Care Physician in: 1-2 week. Disposition: Home Minutes spent on discharge:: 25 Patient Condition:: Stable Medical Necessity - Tobacco Use Smoking Status: Never smoker Meaningful Use Info Meaningful Use Diagnoses (Choose all that apply): None applicable Code Visit OBSV E&M: 35086 Observation care discharge
== END 2019-01-01 14:20 | disposition home or self-care (01) ==
LOC: ED 15:09 → MS3 16:46
PROVIDERS: Admitting Provider Hospitalist; Emergency Provider Emergency Medicine; Family Provider Internal Medicine; PCP Internal Medicine; Visit Provider Hospitalist
DX: J06.9 Acute upper respiratory infection, unspecified (principal); R65.10 Systemic inflammatory response syndrome (SIRS) of non-infectious origin without acute organ dysfunction; E87.6 Hypokalemia; R31.29 Other microscopic hematuria; G47.33 Obstructive sleep apnea (adult) (pediatric); E66.01 Morbid (severe) obesity due to excess calories; N18.3 Chronic kidney disease, stage 3 (moderate); L88 Pyoderma gangrenosum; J44.9 Chronic obstructive pulmonary disease, unspecified; I10 Essential (primary) hypertension; R00.0 Tachycardia, unspecified; Z68.42 Body mass index [BMI] 45.0-49.9, adult; Z71.3 Dietary counseling and surveillance; Z79.899 Other long term (current) drug therapy; F43.10 Post-traumatic stress disorder, unspecified; F32.9 Major depressive disorder, single episode, unspecified
CPT/HCPCS: 36415; 71045; 76770; 80048; 80053; 81001; 83605; 84484; 85025; 85610; 85730; 87040; 87086; 87088; 87633; 93005; 94640; 94667; 94668; 96361; 96365; 96375; 99218; 99285; J7030; A4216; G0378

== ENCOUNTER 2019-02-13 01:46 | Inpatient (IN) | payer MEDICARE, MEDICAID, SELFPAY ==
[2018-12-31 17:34] VITALS: BMI 47.5
[2019-02-13] VITALS (64 sets, daily range): BP systolic 45–247; BP diastolic 27–206; PULSE 39–122; RESP 9–112; TEMP 35.7–40.8; O2SAT 90–100; BMI 50.8; BMI 37.3; BMI 37.4
--- NOTE | 2019-02-13 01:50 | ED.RN ---
RN CALLED FOR EKG, PULLED OLD EKGS FOR
[2019-02-13] MEDS: 0.9% Normal Saline 1,000 ML 999 ML IV ×2 (02:00→02:30)
--- NOTE | 2019-02-13 02:20 | CT_ITS ---
STUDY: CT BRAIN WITHOUT CONTRAST REASON FOR EXAM: Male, 58 years old. Altered mental status. Cardiac arrest. TECHNIQUE: Transaxial CT imaging of the brain was performed without administration of intravenous contrast material. Individualized dose optimization techniques were used for this CT. COMPARISON: No relevant priors. FINDINGS: No evidence of hemorrhage or mass. Poor differentiation of morrissey-white matter symmetrically throughout the bilateral cerebral hemispheres with relative sparing of the posterior fossa. This includes the cortical-subcortical differentiation and to a lesser extent the central morrissey matter. Secretions and a support tube are partially visible in the pharynx. No skull fracture or aggressive osseous lesions. CT/Brain/Head without Contrast IMPRESSION: Findings highly suspicious for diffuse hypoxic injury to the brain with early loss of morrissey-white white matter differentiation. Consider noncontrast MRI of brain to confirm and better evaluate the extent. No apparent hemorrhage or mass. Electronically Signed: Manuel Peoples, at 3:22 EDT Tel , Service support ,
--- NOTE | 2019-02-13 02:20 | EKG12_ITS ---
Test Reason : Blood Pressure : / mmHG Vent. Rate : 075 BPM Atrial Rate : 075 BPM P-R Int : 156 ms QRS Dur : 078 ms QT Int : 362 ms P-R-T Axes : 057 095 222 degrees QTc Int : 404 ms Right sided ECG Sinus rhythm with marked sinus arrhythmia Low voltage QRS Marked ST abnormality, possible inferior subendocardial injury RV4: cannot exclude RV infarct-age undetermined-possibly acute/recent Abnormal ECG Confirmed by OTILIO GUSMAN, ELIZABET ([id number]), editor book LION LATHAM ([id number]) on 02/14/2019 8:57:21 AM Referred By: Confirmed By:ELIZABET YAÑEZ MD
[2019-02-13] MEDS: 0.9% Normal Saline 1,000 ML 1000 ML IV (02:30)
[2019-02-13 02:33] LABS: Absolute Lymphocyte Count 3.46 X10^3/uL (0.83-4.51); Absolute Neutrophil Count 2.4 X10^3/uL (2.0-7.7); Basophil# 0.07 X10^3/uL; Eosinophil# 0.29 X10^3/uL; Eosinophils% 4.2 % (0-5); Hematocrit 49.1 % (40-54); Hemoglobin 14.6 g/dL (13.0-16.5); Lymphocyte # 3.46 X10^3/ul (4.0); Lymphocyte % 50.1 % (19-41); Mean Corp Hgb Conc 29.7 g/dL (32-36); Mean Corpuscular Hgb 28.4 pg (27.0-32.0); Mean Corpuscular Volume 95.5 fL (80-94); Mean Platelet Vol. 10.8 fl (6.2-12.0); Monocyte# 0.57 X10^3/uL; Monocyte% 8.3 % (0-10); NRBC Flagged by Analyzer 0 % (0-5); Neutrophil # 2.38 X10^3/uL (2.7-7.7); Neutrophil % 34.5 % (47-70); Platelet Count 247 K/mm3 (150-450); RBC Distribution Width CV 13.5 % (11.6-14.6); RBC Distribution Width SD 47.8 fl (35.1-43.9); Red Blood Count 5.14 M/mm3 (4.6-6.2); White Blood Count 6.9 K/mm3 (4.4-11.0)
[2019-02-13 02:38] LABS: International Normalized Ratio 1.4; Partial Thromboplast Time 39.4 Seconds (24.1-36.2); Prothrombin Time (Protime)PT. 16.9 SECONDS (11.7-14.9)
--- NOTE | 2019-02-13 02:45 | CT_ITS ---
STUDY: CTA CHEST REASON FOR EXAM: Male, 58 years old. Cardiac arrest. RADIATION DOSAGE (If Supplied By Facility): CTDIvol = ( 17.42 ) mGy, DLP = ( 522.44 ) mGycm TECHNIQUE: The examination was performed with the intravenous administration of IV 100mL Isovue-370 100ML. Post-processing of the angiographic images was performed, with MIP reconstructed images. Individualized dose optimization techniques were used for this CT. COMPARISON: 12/31/2018 CXR FINDINGS: Endotracheal tube tip 1 cm above the robert. Enteric tube tip distal stomach in the right upper abdomen. Heart and great vessels: Heart size normal. No dissection or aneurysm of the thoracic aorta. No pulmonary embolus. Lungs, pleura: Complete atelectasis of the right lower lobe. Multifocal reticular-nodular opacities and some areas of consolidation scattered throughout the right upper lobe. Right middle lobe and left lung relatively clear. No pneumothorax or pleural effusion. Small amount of fluid layers in the distal trachea and main bronchi bilaterally. Mediastinum: No adenopathy or mass or hematoma. Osseous: Acute nondisplaced left anterior third, fourth, fifth, sixth and right anterior fifth, sixth rib fractures. No other acute osseous abnormality. Mild degenerative changes thoracic spine. Chest wall: No concerning findings. Upper abdomen: No acute findings. Partially visible large bowel contains some barium. CT/CTA Chest W/WO Contrast IMPRESSION: No pulmonary embolus. No thoracic aortic dissection or aneurysm. Right upper lobe airspace disease most likely multifocal pneumonia. Complete atelectasis of the right lower lobe. Acute nondisplaced left anterior third, fourth, fifth, sixth and right anterior fifth, sixth rib fractures. Electronically Signed: Jayravin Richelle, at 3:32 EDT Tel , Service support ,
[2019-02-13 02:48] LABS: ALB/GLOB Ratio 0.7 RATIO (0.9-2.4); AST(SGOT) 67 U/L (15-37); Alanine Aminotransfer ALT/SGPT 77 U/L (16-61); Albumin, Serum 2.8 g/dL (3.2-5.0); Alkaline Phosphatase 104 U/L (45-117); Anion Gap 21 (5-15); BUN 15 mg/dL (7-18); BUN/Creat Ratio 6.7 RATIO (10-20); Calcium,Total 9.1 mg/dL (8.5-10.1); Chloride 101 mmol/L (98-107); Creatinine, Serum 2.23 mg/dL (0.70-1.30); EST Glomerular Filtration Rate 33 mL/min (>60); Est Glom Filt Rate - Afr Amer 39 mL/min (>60); Globulin 4.1 g/dL (2.2-4.2); Glucose 287 mg/dL (74-106); Potassium 4.4 mmol/L (3.5-5.1); Protein, Total 6.9 g/dL (6.4-8.2); Sodium Level 140 mmol/L (136-145)
--- NOTE | 2019-02-13 02:48 | ED.DCSUM_ITS ---
History of Present Illness Chief Complaint: CPR Narrative: EMS brings patient in as a cardiac arrest. They were called out for shortness of breath. When they arrived there was no bystander CPR and the patient was unconscious on the couch without a pulse, initial rhythm was asystole, ACLS was started immediately, by the time they arrived to the ER they had undergone ACLS for approximately 45 minutes, with the sixth dose of epinephrine being given in the emergency department, no other medications given prior. They placed an i- gel blind airway. Patient was supposed to have some type of abdominal surgery soon and had a routine EKG relatively recently. Has a history of coronary disease with a stent at least one, as well as COPD. History is very limited, family arrived almost 2 hours after the onset. - Past Medical History (1) CKD (chronic kidney disease) stage 3, GFR 30-59 ml/min Status: Chronic (2) COPD (chronic obstructive pulmonary disease) Status: Chronic (3) Hypertension Status: Chronic (4) Morbid obesity Status: Chronic (5) MANDI (obstructive sleep apnea) Status: Chronic (6) Pyoderma gangrenosum Status: Chronic Past Medical History - Allergies and Home Meds Allergies/Adverse Reactions: Allergies aspirin Allergy (Verified 02/13/19 03:06) Anaphylaxis Penicillins Allergy (Verified 02/13/19 03:06) Hives Surgical History: - - Surgical repair of bone fractures. Lives: With Family Smoking Status: Never smoker Drugs: Marijuana - Family History Maternal Family History: Reports: No pertinent history Paternal Family History: Reports: Heart Disease Sibling Family History: Reports: Heart Disease Review of Systems ROS: Unable to Obtain Physical Exam General: Obese, Unkempt, - - Obtunded and unresponsive Head: Normocephalic, Atraumatic Eyes: - - Pupils fixed and dilated approximately 4 mm bilaterally ENT: Moist mucous membranes Neck: Supple Respiratory: Wheezing, Diminished, - - Equal breath sounds bilaterally Abdomen: Soft, Nondistended Extremities: No edema Skin: No Trauma. Negative for: Jaundice Neurological: - - Obtunded and flaccid x4 Diagnostic/Tx/Re-eval Chest X-Ray - ED: 1 View, Read by ED Physician, Right Infiltrate, - - good line placement Clinical Impression(s) from Imaging Studies Brain CT 02/13/19 02:20 IMPRESSION: Findings highly suspicious for diffuse hypoxic injury to the brain with early loss of morrissey-white white matter differentiation. Consider noncontrast MRI of brain to confirm and better evaluate the extent. No apparent hemorrhage or mass. Electronically Signed: Manuel Peoples, at 3:22 EDT Tel , Service support , Chest CTA 02/13/19 02:45 IMPRESSION: No pulmonary embolus. No thoracic aortic dissection or aneurysm. Right upper lobe airspace disease most likely multifocal pneumonia. Complete atelectasis of the right lower lobe. Acute nondisplaced left anterior third, fourth, fifth, sixth and right anterior fifth, sixth rib fractures. Electronically Signed: Maunel Peoples, at 3:32 EDT Tel , Service support , Laboratory Tests 02/13/19 02/13/19 02/13/19 Range/Units 02:20 02:20 02:20 WBC 6.9 (4.4-11.0) K/mm3 RBC 5.14 (4.6-6.2) M/mm3 Hgb 14.6 (13.0-16.5) g/dL Hct 49.1 (40-54) % MCV 95.5 H (80-94) fL MCH 28.4 (27.0-32.0) pg MCHC 29.7 L (32-36) g/dL RDW Std Deviation 47.8 H (35.1-43.9) fl RDW Coeff of Roge 13.5 (11.6-14.6) % Plt Count 247 (150-450) K/mm3 MPV 10.8 (6.2-12.0) fl Immature Gran % (Auto) 1.900 H (0.0-0.9) % Neut % (Auto) 34.5 L (47-70) % Lymph % (Auto) 50.1 H (19-41) % [place] % (Auto) 8.3 (0-10) % Eos % (Auto) 4.2 (0-5) % Baso % (Auto) 1.0 (0-1) % Absolute Neuts (auto) 2.4 (2.0-7.7) X10^3/uL Absolute Lymphs (auto) 3.46 (0.83-4.51) X10^3/uL Nucleated RBC % 0 (0-5) % PT 16.9 H (11.7-14.9) SECONDS INR 1.4 APTT 39.4 H (24.1-36.2) Seconds Sodium 140 (136-145) mmol/L Potassium 4.4 (3.5-5.1) mmol/L Chloride 101 (98-107) mmol/L Carbon Dioxide 18.0 L (21.0-32.0) mmol/L Anion Gap 21 H (5-15) BUN 15 (7-18) mg/dL Creatinine 2.23 H (0.70-1.30) mg/dL Est GFR (MDRD) Af Amer 39 L (>60) mL/min Est GFR (MDRD) Non-Af 33 L (>60) mL/min BUN/Creatinine Ratio 6.7 L (10-20) RATIO Glucose 287 H (74-106) mg/dL Calcium 9.1 (8.5-10.1) mg/dL Total Bilirubin 0.30 (0.20-1.00) mg/dL AST 67 H (15-37) U/L ALT 77 H (16-61) U/L Alkaline Phosphatase 104 (45-117) U/L Troponin I 0.061 H (<0.045) ng/mL Total Protein 6.9 (6.4-8.2) g/dL Albumin 2.8 L (3.2-5.0) g/dL Globulin 4.1 (2.2-4.2) g/dL Albumin/Globulin Ratio 0.7 L (0.9-2.4) RATIO - Rhythm Strip Rhythm Strip: Sinus Tach Rate: 114 Ectopy: None - EKG Initial EKG Interpretation: Sinus Rhythm, S-T Elevation - aVR 3mm, S-T Depression - 1-2mm I, II, III, aVF, V2-6, - - suspect posterior STEMI; less than 1mm ENOCH in RV4 Prior: Changed - Medical Decision Making ACLS was continued after handoff from paramedics. We gave epinephrine and at rhythm check he had a sinus rhythm, as well as a femoral pulse. Therefore we obtained a blood pressure and an EKG, which appears to show a posterior STEMI. I had the EKG tach obtain a right-sided EKG, and RV for has less than 1 mm or about [address] elevation that is relatively flat. However before I could disc uss with cardiology, the patient lost his pulse although he continued to have a sinus tachycardia consistent with PEA. Therefore we continued CPR, gave him another dose of epinephrine along with an amp of calcium chloride and an amp of sodium bicarbonate. Soon after giving these, he had about 15 seconds of what appeared to be monomorphic ventricular tachycardia. We continued CPR although I saw this, and prior to the next rhythm check, it resolved. We eventually obtained spontaneous return of circulation again that seemed relatively stable. I discussed with Dr. Cook who was on-call for STEMI, and sent him the EKGs. At this point the patient had been down for just over 1 hour and is unresponsive. He agreed that taking him directly to the [facility] would probably result in given his lack of stability, as well as reviewing risk versus benefit ratio due to his prolonged downtime. He advised scanning his head and his chest for pulmonary embolism, and treating that if present, and continuing to treat him medically otherwise. Upon going back to the room and reevaluated the patient, he still has a pulse, however his i-gel came loose, and was no longer reliable to use as an airway. Therefore I inserted a Cook exchange catheter and 2 of the point of resistance, pulling the gel off and replacing with a 7.5 ETT, and removing the catheter. There is no good color change. He continued to have a good pulse with tachycardia. There is no good chest rise even before, nor now. I used a laryngoscope to evaluate placement of the tube and was able to visually verify that it was placed in the esophagus. At this time we start as an stomach contents. We removed the gel as soon as we possibly could after getting something to cover his mouth with and to suction. I then attempted to place a new tube via direct laryngoscopy, however the patient's significantly thick mustache was in the way. I tried to hold it down myself, and I tried to have 2 different educational/development assistant told it down, but I was not able to visualize well enough given his large tongue and obesity and difficult airway to place the tube in the airway. Therefore we bagged the patient, he priscilla'd down in the meantime, we performed CPR and gave another mg of epinephrine, while we prepped the video laryngoscopy which was already at the bedside and on, placing the stiff stylette in the ETT. I then was able to place this while performing CPR, with a brief pause. We then secured the airway, continued CPR, and at rhythm check he had sinus tachycardia with a good pulse verified by Doppler by nursing, Levophed was then available which was ordered prior, and hung. I discussed with family. Power of brake shoe rebuilder is not yet present. Plan is to get him to CT and verify tube placement, and evaluate for further pathology as above. Time at this time is 0250. 0322 --patient back from CT, hemodynamically still stable. I think the potential benefits from CT angiography/contrast with his history of chronic kidney disease greatly outweigh the potential risks of worsening kidney injury given the gravity of his clinical situation. IV fluids were ordered to help flush his kidneys afterwards. CT head shows no acute bleed on my interpretation and CT angiography of the chest on my interpretation shows a dense right lower lobe infiltrate without any obvious pulmonary embolus. The end of the ET tube is just above the robert, so that was left alone. OG tube appears to be in good position. The rest of the septic work-up was ordered, #2 IV antibiotics, plan to discuss with hospitalist. Unknown if this is pneumonia that caused his cardiac arrest due to hypoxemia, or if given the above events, this is due to aspiration. Prior to putting in central line, we had issues ventilating the patient with the ventilator. His peak airway pressures were so high, 80+, that the ventilator would not deliver any flow. We tried multiple settings. I discussed with Dr. Anderson. He recommended paralyzing the patient, I did this with back around him 10 mg in addition to sedating him with propofol. This seemed to help. CT does verify multiple rib fractures likely a result of CPR. This may be playing a role in his decreased compliance, as does his baseline severe COPD. We now have him on the ventilator, a line placed, and he is being admitted to the ICU with stable blood pressure with Levophed removed. - Critical Care Time Critical care time (excluding procedures): 30-74 minutes, Including time spent:, Discussing w/Patient &/or Family/Dietetic Technician Registered, Discussing w/Consultants, Arranging Admission or Transfer, Performing Direct Patient Care at Bedside Procedures Procedure(s): 1 - endotracheal intubation -- see above for details. placed 7.5F ETT via video laryngoscopy. verified by subsequent CT chest. 2 - Right subclavian central line placement --sterile prep and drape with chlorhexidine, found subclavian vein nonpulsatile dark red blood on first attempt with finder needle, placed 16 cm lying via modified Seldinger technique. Only complication was that I had difficulty inserting the catheter all the way, it was about 4 or 5 cm from the hub when I was running into difficulty which was likely due to the skin not being opened enough. However, all 3 ports marycruz back dark red blood and flushed easily. I replaced the wire, I was able to threaded and more after opening the skin a little further, and I read marycruz/flushed all 3 ports without difficulty. Sutured in place and dressed, placement verified with chest x-ray. ED Disposition - Plan for ED Patient: Disposition: Acute Care Hospital [facility] Diagnosis: Cardiopulmonary arrest with successful resuscitation, Acute on chronic respiratory failure with hypoxia and hypercapnia, Right lower lobe pneumonia, Chronic kidney disease (CKD)
[2019-02-13] MEDS: MethylPREDNISolone 125 MG/2 ML Vial IV (03:50)
[2019-02-13 03:57] LABS: Squamous Epithelial Cells - UA 0 SEEN /hpf (0-5)
[2019-02-13 04:07] LABS: Color, Urine Yellow (Yellow); Glucose, Dipstick 250 mg/dl (Normal); Ketone-Dipstick Negative (Negative); Leukocyte Esterase-Dipstick Negative /ul (Negative); Nitrite-Dipstick Negative (Negative); Occult Blood-Urine 250 /ul (Negative); Protein-Dipstick 500 mg/dl (Negative); Specific Gravity, Urine 1.015 (1.002-1.030); Urine Bilirubin Dipstick Negative (Negative); Urine Clarity Cloudy (Clear); Urine Urobilinogen Normal (Normal)
[2019-02-13] MEDS: Propofol 10MG/Ml 1,000 MG/100 ML Bottle 8.6 MG CONT INF (04:14)
[2019-02-13] MEDS: Ceftriaxone 1 GM/50 ML BAG IV (04:19)
[2019-02-13 04:31] LABS: Bacteria 1+ /hpf (None Seen); Red Blood Cells-Urine 10-25 SEEN /hpf (0-5); White Blood Cells 5-10 SEEN /hpf (0-5)
[2019-02-13 04:32] LABS: Mucous, Urine RARE /hpf (<or=2+)
[2019-02-13 04:35] LABS: Lactic Acid 5.4 mmol/L (0.4-2.0)
[2019-02-13] MEDS: Vecuronium Bromide 10 MG/10 ML Vial IV (04:36)
[2019-02-13] MEDS: Albuterol 2.5 MG/3 ML VIAL.NEB. INHALATION ×2 (04:49→04:50)
[2019-02-13] MEDS: Ipratropium/Albuterol Sulfate 3 ML AMPUL.NEB INHALATION ×6 (04:50→23:23)
--- NOTE | 2019-02-13 04:54 | HP.PCM_ITS ---
Problem List (1) Cardiopulmonary arrest with successful resuscitation Status: Acute (2) Acute on chronic respiratory failure with hypoxia and hypercapnia Status: Acute (3) Chronic kidney disease (CKD) Status: Chronic (4) Hypertension Status: Chronic (5) COPD (chronic obstructive pulmonary disease) Status: Chronic (6) MANDI (obstructive sleep apnea) Status: Chronic (7) Morbid obesity Status: Chronic History of Present Illness Date of Admission: 02/13/19 Chief Complaint: post cardiac arrest The patient is a 58 year old male patient with past medical history of COPD presents to the emergency room via squad in full arrest. In the field patient received bystander CPR along with 45 minutes of ACLS, the patient received a total of 6 doses of epinephrine in the field. CPR continued upon arrival at the hospital and the patient required another 3 additional doses of epinephrine before spontaneous return of circulation was obtained. EKG indicated ST elevation VT however since his downtime was significant cardiology wanted to have medical management done until such time that the patient was more stable. CT scan was done and negative for pulmonary embolism. On ventilation the patient has poor compliance and sedation along with paralytic was used to help improve lung compliance with the ventilator. The patient has had no spontaneous return of consciousness since his arrest. Past Medical History Past Medical History (Chronic Problems): Chronic Problems Chronic kidney disease (CKD) (Chronic) COPD exacerbation (Chronic) Hypertension (Chronic) Pyoderma gangrenosum (Chronic) COPD (chronic obstructive pulmonary disease) (Chronic) MANDI (obstructive sleep apnea) (Chronic) Morbid obesity (Chronic) CKD (chronic kidney disease) stage 3, GFR 30-59 ml/min (Chronic) Allergies aspirin Allergy (Verified 02/13/19 03:06) Anaphylaxis Penicillins Allergy (Verified 02/13/19 03:06) Hives Home Medications: Ambulatory Orders Medication Instructions Recorded Albuterol Aerosols [Ventolin 2.5 mg INHALATION Q6H PRN PRN 11/26/16 Aerosols] Albuterol Inhaler [Ventolin Hfa] 2 puff INHALATION Q6H PRN PRN 11/26/16 Quetiapine Fumarate [Seroquel XR] 200 mg PO QHS 11/26/16 Triamcinolone 0.1% Cream [Kenalog] 1 applic TOPICAL TID 04/29/17 Umeclidinium [place] [Incruse 1 puff INHALATION DAILY 04/29/17 Ellipta] buPROPion XL [Wellbutrin Xl] 300 mg PO DAILY 04/29/17 Baclofen 10 mg PO BID 07/12/18 Duloxetine HCl 60 mg PO DAILY 07/12/18 Losartan Potassium 100 mg PO DAILY 07/12/18 Prednisone See Taper PO DAILY #18 tab 01/01/19 levoFLOXacin tablet [Levaquin 500 mg PO DAILY@0600 #4 tab 01/01/19 tablet] Surgical History: - - Surgical repair of bone fractures. Psychiatric History: Post traumatic stress Lives: With Family Smoking Status: Never smoker Drugs: Marijuana - *Family History Maternal History Items: No pertinent history Paternal History Items: Heart Disease Sibling History Items: Heart Disease Review of Systems Unable to obtain accurate/complete ROS d/t: patient is sedated and intubated VTE Information - Inpt Only VTE Present on Admission: No VTE Mechan Device Prophylaxis: None VTE Pharm Prophylaxis ordered?: Yes Patient Problems: Active and Suspected Problems Cardiopulmonary arrest with successful resuscitation (Acute) Acute on chronic respiratory failure with hypoxia and hypercapnia (Acute) Right lower lobe pneumonia (Acute) - Physical Exam General: - - sedated and intubated HEENT: Atraumatic, Normocephalic, - - pupils fixed at 4mm and dilated Neck: Supple Lungs: Normal air movement Cardiovascular: Regular rate, Normal S1, Normal S2, Tachycardic Abdomen: Obese Extremities: No edema Skin: No rashes Neurological: - - to assess but was non responsive prior to adding sedation Vital Signs Temp Pulse Resp BP Pulse Ox 96.7 F L 112 H 112 H 164/116 H 96 02/13/19 04:04 02/13/19 04:30 02/13/19 04:30 02/13/19 04:30 02/13/19 04:30 Oxygen Flow Rate (L/min) 100 Oxygen Delivery Method Ambu-Bag Weight: 314 lb 13.121 oz Body Mass Index (BMI) 50.8 Intake and Output for Last 24 Hours 02/11/19 02/12/19 02/13/19 23:59 23:59 23:59 Intake Total 3056.43 / 3056.43 Balance 3056.43 / 3056.43 Laboratory Tests Past 24 Hrs 02/13/19 02/13/19 02/13/19 02:20 02:20 02:20 WBC 6.9 RBC 5.14 Hgb 14.6 Hct 49.1 MCV 95.5 H MCH 28.4 MCHC 29.7 L RDW Std Deviation 47.8 H RDW Coeff of Roge 13.5 Plt Count 247 MPV 10.8 Immature Gran % (Auto) 1.900 H Neut % (Auto) 34.5 L Lymph % (Auto) 50.1 H [place] % (Auto) 8.3 Eos % (Auto) 4.2 Baso % (Auto) 1.0 Absolute Neuts (auto) 2.4 Absolute Lymphs (auto) 3.46 Nucleated RBC % 0 PT 16.9 H INR 1.4 APTT 39.4 H Sodium 140 Potassium 4.4 Chloride 101 Carbon Dioxide 18.0 L Anion Gap 21 H BUN 15 Creatinine 2.23 H Est GFR (MDRD) Af Amer 39 L Est GFR (MDRD) Non-Af 33 L BUN/Creatinine Ratio 6.7 L Glucose 287 H Lactic Acid Calcium 9.1 Total Bilirubin 0.30 AST 67 H ALT 77 H Alkaline Phosphatase 104 Troponin I 0.061 H Total Protein 6.9 Albumin 2.8 L Globulin 4.1 Albumin/Globulin Ratio 0.7 L Urine Color Urine Clarity Urine pH Ur Specific [place] Urine Protein Urine Glucose (UA) Urine Ketones Urine Occult Blood Urine Nitrite Urine Bilirubin Urine Urobilinogen Ur Leukocyte Esterase Urine RBC Urine WBC Ur Squamous Epith Cells Urine Bacteria Urine Mucus 02/13/19 02/13/19 03:43 03:50 WBC RBC Hgb Hct MCV MCH MCHC RDW Std Deviation RDW Coeff of Roge Plt Count MPV Immature Gran % (Auto) Neut % (Auto) Lymph % (Auto) [place] % (Auto) Eos % (Auto) Baso % (Auto) Absolute Neuts (auto) Absolute Lymphs (auto) Nucleated RBC % PT INR APTT Sodium Potassium Chloride Carbon Dioxide Anion Gap BUN Creatinine Est GFR (MDRD) Af Amer Est GFR (MDRD) Non-Af BUN/Creatinine Ratio Glucose Lactic Acid 5.4 H* Calcium Total Bilirubin AST ALT Alkaline Phosphatase Troponin I Total Protein Albumin Globulin Albumin/Globulin Ratio Urine Color Yellow Urine Clarity Cloudy Urine pH 7.0 Ur Specific [place] 1.015 Urine Protein 500 H Urine Glucose (UA) 250 H Urine Ketones Negative Urine Occult Blood 250 H Urine Nitrite Negative Urine Bilirubin Negative Urine Urobilinogen Normal Ur Leukocyte Esterase Negative Urine RBC 10-25 SEEN Urine WBC 5-10 SEEN Ur Squamous Epith Cells 0 SEEN Urine Bacteria 1+ Urine Mucus RARE Assessment/Plan All Active Problems Cardiopulmonary arrest with successful resuscitation (Acute) Acute on chronic respiratory failure with hypoxia and hypercapnia (Acute) Right lower lobe pneumonia (Acute) Chronic Problems Chronic kidney disease (CKD) (Chronic) COPD exacerbation (Chronic) Hypertension (Chronic) Pyoderma gangrenosum (Chronic) COPD (chronic obstructive pulmonary disease) (Chronic) MANDI (obstructive sleep apnea) (Chronic) Morbid obesity (Chronic) CKD (chronic kidney disease) stage 3, GFR 30-59 ml/min (Chronic) Plan 1. Cardiac/pulmonary arrest with return of spontaneous circulation?patient to the ICU, continue mechanical ventilation, consult assistant inventory manager Dr. Anderson, consult part time flexible clerk Dr. Cook, family members are arriving to discuss plan of care strategy, due to unknown downtime EEG may be a valid next step 2. COPD on ventilator 3. Hypertension?did require Levophed for a brief period of time is now off of it and will hold other medications at this time 4. DVT prophylaxis -low molecular weight heparin Code Visit Inpatient E&M: 20398 Init Hosp L3
--- NOTE | 2019-02-13 05:00 | CPS ---
Critical values on ABG of pH 7.02 and PCO2 99.[address] Petit
[2019-02-13 05:10] LABS: Allen Test POS; Base Excess -5 mmol/L (-2 to +2); Bicarbonate 25.9 mmol/L (22-26); Blood Gas Specimen Type ART; FI02 100; Mode A-C; O2 Delivery Device Vent; PEEP 10; PO2 112 mmHG (75-100); RR 20; SITE L Radial; SO2 95 % (95-99); Time Given 450; Total Carbon Dioxide 29 mmol/L; Vt 350; pCO2 99.6 mmHg (35-45); pH 7.02 (7.35-7.45)
--- NOTE | 2019-02-13 05:13 | RAD_ITS ---
STUDY: X-RAY CHEST REASON FOR EXAM: Male, 58 years old. line placement TECHNIQUE: AP portable COMPARISON: CTA chest from same day FINDINGS: Endotracheal, gastric are stable in positioning. There is a right subclavian line with tip tracking into the SVC. The left lung remains clear. There is patchy diffuse right lung opacities with obscuration of the right hemidiaphragm. No definite pneumothorax. Cardiac and mediastinal silhouettes are unchanged. There is no demonstrated abnormality of the visualized soft tissue structures of the upper abdomen. RAD/CXR for Line Placement IMPRESSION: Support lines and tubes as described. Persistent diffuse right lung opacities likely due to underlying pneumonia and right lower lobe atelectasis. Electronically Signed: Brennon Sultana, at 7:34 EDT Tel , Service support ,
--- NOTE | 2019-02-13 06:20 | NURSING ---
Propofol on hold per Dr. Anderson request.
--- NOTE | 2019-02-13 06:45 | NURSING ---
Dr Anderson at bedside with family, mother, 2 daugthers and son.
[2019-02-13 07:36] LABS: Allen Test POS; Base Excess -5 mmol/L (-2 to +2); Bicarbonate 24.9 mmol/L (22-26); Blood Gas Specimen Type ART; FI02 80; Mode A-C; O2 Delivery Device Vent; PEEP 10; PO2 82 mmHG (75-100); RR 20; SITE R Radial; SO2 90 % (95-99); Time Given 726; Total Carbon Dioxide 27 mmol/L; Vt 350; pCO2 82.9 mmHg (35-45); pH 7.09 (7.35-7.45)
[2019-02-13 07:57] LABS: Reflex Lactate? Y
--- NOTE | 2019-02-13 08:27 | EKG12_ITS ---
Test Reason : Blood Pressure : / mmHG Vent. Rate : 114 BPM Atrial Rate : 119 BPM P-R Int : 188 ms QRS Dur : 088 ms QT Int : 314 ms P-R-T Axes : 066 104 225 degrees QTc Int : 432 ms Sinus tachycardia Rightward axis Marked ST abnormality, possible inferior subendocardial injury Marked ST abnormality, possible anterolateral subendocardial injury Abnormal ECG Confirmed by OTILIO GUSMAN, ELIZABET ([id number]), newspaper editor LION LATHAM ([id number]) on 02/14/2019 8:57:53 AM Referred By: Confirmed By:ELIZABET YAÑEZ MD
[2019-02-13 08:44] LABS: Lactic Acid 3.3 mmol/L (0.4-2.0)
--- NOTE | 2019-02-13 08:45 | PN_ITS ---
Patient Problems: Active and Suspected Problems Cardiopulmonary arrest with successful resuscitation (Acute) Acute on chronic respiratory failure with hypoxia and hypercapnia (Acute) Right lower lobe pneumonia (Acute) Subjective: propofol turned off earlier this AM and patient has been unresponsive afterwards. still on vent. Vitals/I&O's: Vital Signs Temp Pulse Resp BP Pulse Ox 35.8 C L 106 H 12 187/127 H 93 02/13/19 06:45 02/13/19 07:00 02/13/19 07:00 02/13/19 07:00 02/13/19 07:00 Oxygen Flow Rate (L/min) 100 Oxygen Delivery Method Mechanical Ventilator Weight: 128.5 kg Body Mass Index (BMI) 37.3 Intake and Output for Last 24 Hours 02/11/19 02/12/19 02/13/19 23:59 23:59 23:59 Intake Total 3386.08 / 3386.08 Balance 3386.08 / 3386.08 General: - - unresponsive to noxious/verbal stimuli. HEENT: Atraumatic, Normocephalic, - - no icterus. pupil non-reactive to light. Oral: - - ETT and OG in place. Neck: No Nodes, Thyroid Normal Size and Texture Lungs: Normal air movement, - - coarse breath sounds bilaterally. Cardiovascular: Regular rate, Regular Rhythm, Normal S1, Normal S2, No murmurs Abdomen: Bowel Sounds Present, Soft, Non Tender, Non-Distended, Obese Extremities: No cyanosis, No edema Skin: - - skin tear right mcclure Musculoskeletal: No Muscle Wasting Neurological: - - no clonus. absent corneal reflex bilaterally. Laboratory Results 02/13/19 02:20: WBC 6.9, RBC 5.14, Hgb 14.6, Hct 49.1, MCV 95.5 H, MCH 28.4, MCHC 29.7 L, RDW Std Deviation 47.8 H, RDW Coeff of Roge 13.5, Plt Count 247, MPV 10.8, Immature Gran % (Auto) 1.900 H, Neut % (Auto) 34.5 L, Lymph % (Auto) 50.1 H, [place] % (Auto) 8.3, Eos % (Auto) 4.2, Baso % (Auto) 1.0, Absolute Neuts (auto) 2.4, Absolute Lymphs (auto) 3.46, Nucleated RBC % 0 02/13/19 02:20: PT 16.9 H, INR 1.4, APTT 39.4 H 02/13/19 02:20: Sodium 140, Potassium 4.4, Chloride 101, Carbon Dioxide 18.0 L, Anion Gap 21 H, BUN 15, Creatinine 2.23 H, Est GFR (MDRD) Af Amer 39 L, Est GFR (MDRD) Non-Af 33 L, BUN/Creatinine Ratio 6.7 L, Glucose 287 H, Calcium 9.1, Total Bilirubin 0.30, AST 67 H, ALT 77 H, Alkaline Phosphatase 104, Troponin I 0.061 H, Total Protein 6.9, Albumin 2.8 L, Globulin 4.1, Albumin/Globulin Ratio 0.7 L 02/13/19 03:43: Urine Color Yellow, Urine Clarity Cloudy, Urine pH 7.0, Ur Specific [place] 1.015, Urine Protein 500 H, Urine Glucose (UA) 250 H, Urine Ketones Negative, Urine Occult Blood 250 H, Urine Nitrite Negative, Urine Bilirubin Negative, Urine Urobilinogen Normal, Ur Leukocyte Esterase Negative, Urine RBC 10-25 SEEN, Urine WBC 5-10 SEEN, Ur Squamous Epith Cells 0 SEEN, Urine Bacteria 1+, Urine Mucus RARE 02/13/19 03:50: Lactic Acid 5.4 H* 02/13/19 04:58: Specimen Type ART, Sample Site L Radial, pH 7.02 L*, Bicarbonate Actual 25.9, POC Total CO2 29, Base Excess -5 L, O2 Saturation 95, O2 % 100, ABG pCO2 99.6 H*, ABG pO2 112 H, Neno Test POS, Respiration Rate 20, O2 Delivery Device Vent, Minute Volume 12.00, Vent Mode A-C, Tidal Volume 350, POC PEEP 10, Blood Gas Notified Whom ED , Blood Gas Notified Time 450 02/13/19 07:27: Specimen Type ART, Sample Site R Radial, pH 7.09 L*, Bicarbonate Actual 24.9, POC Total CO2 27, Base Excess -5 L, O2 Saturation 90 L, O2 % 80, ABG pCO2 82.9 H*, ABG pO2 82, Neno Test POS, Respiration Rate 20, O2 Delivery Device Vent, Minute Volume 7.00, Vent Mode A-C, Tidal Volume 350, POC PEEP 10, Blood Gas Notified Whom ICU , Blood Gas Notified Time 726 02/13/19 08:05: Lactic Acid 3.3 H Surgery reviewed and shows diffuse right lung hazy infiltrate. Current Medications Albuterol Sulfate (Ventolin Aerosols) 2.5 mg INHALATION Q2H PRN PRN PRN Reason: WHEEZING Albuterol/Ipratropium (Duoneb) 3 ml INHALATION Q4H.RT ANTONIETTA Last Admin: 02/13/19 07:36 Dose: 3 ml Documented by: Baclofen (Lioresal) 5 mg PO TID ANTONIETTA Chlorhexidine Gluconate () 15 ml PO BID COUNTS INCLUDE 234 BEDS AT THE [facility] Dextrose (D50w Syringe) 0 gm IV X1 PRN; Protocol PRN Reason: Hypoglycemia Enoxaparin Sodium (Lovenox) 30 mg SC DAILY@1000 ANTONIETTA Glucagon () 1 mg IM .X1 PRN PRN Reason: Hypoglycemia Propofol (Diprivan) 1,000 mg in 100 mls @ 8.568 mls/hr CONT INF .[id number] COUNTS INCLUDE 234 BEDS AT THE [facility]; Protocol Last Titration: 02/13/19 07:50 Dose: 15 mcg/kg/min, 12.9 mls/hr Documented by: Norepinephrine Bitartrate 8 mg (/ Sodium Chloride) 250 mls @ 9.375 mls/hr CONT INF .[id number] COUNTS INCLUDE 234 BEDS AT THE [facility]; Protocol Last Titration: 02/13/19 04:15 Dose: 0 mcg/min, 0 mls/hr Documented by: Famotidine 20 mg/ Sodium (Chloride) 10 mls @ 300 mls/hr IV Q24 COUNTS INCLUDE 234 BEDS AT THE [facility] Sodium Chloride () 250 mls @ 15 mls/hr IV .[id number] PRN PRN Reason: SALINE FLUSH Methylprednisolone (Solu-Medrol) 40 mg IV Q6 COUNTS INCLUDE 234 BEDS AT THE [facility] Sodium Chloride () 5 - 15 ml IV UD PRN PRN Reason: SALINE FLUSH STROKE Vital Signs/Narrative: Vital Signs Temp Pulse Resp BP Pulse Ox 02/13/19 07:00 106 H 12 187/127 H 93 02/13/19 06:45 35.8 C L 106 H 20 H 177/126 H 94 02/13/19 06:30 35.8 C L 106 H 20 H 156/117 H 98 02/13/19 06:22 108 H 02/13/19 06:15 35.7 C L 108 H 20 H 135/100 H 98 02/13/19 06:02 35.7 C L 108 H 20 H 172/157 H 99 02/13/19 05:35 35.7 C L 108 H 15 117/83 H 96 02/13/19 05:34 108 H 20 H 117/83 H 97 02/13/19 05:00 112 H 20 H 136/96 H 100 Medical Necessity - Tobacco Use Smoking Status: Never smoker Assessment/Plan All Active Problems Cardiopulmonary arrest with successful resuscitation (Acute) Acute on chronic respiratory failure with hypoxia and hypercapnia (Acute) Right lower lobe pneumonia (Acute) 1. Cardiac arrest * witnessed. * had CPR initiated the field for ~45min, but not until EMS arrived. Unclear how long patient was without a pulse. Patient was down for about 1 hour * PEA noted in ED. 2. acute hypercapnic respiratory failure * secondary to cardiac arrest, plus pneumonia and COPD * currently satting in mid 90s, but at 100% FiO2 * wean vent as able 3. Right sided pneumonia * cannot R/O ALI (due to pneumonia or CPR) * received CTX and azithromycin in ED 4. AECOPD * continue methylpred and BDs 5. Suspected anoxic encephalopathy * diffuse hypoxic injury suspected on CT * clinically ominous signs. * given the length of time that he was down, grave prognosis suspected 6. VTE proph: LMWH 7. GI proph: H2B Code Visit Inpatient E&M: 15703 [facility] Hosp L3
--- NOTE | 2019-02-13 08:45 | ECHOCS_ITS ---
Reason For Study: Arrhythmia Procedure This was a 2D Doppler, Color Flow transthoracic echocardiogram. The study was technically difficult. Contrast injection was performed. S/P Cardiac Arrest. Exam performed portable in ICU/CCU. Left Ventricle Normal size and thickness. The estimated ejection fraction is 45 %. Stage 1 diastolic dysfunction. Posterior-Basal: Mildly hypokinetic. Infero-Basal: Mildly hypokinetic. Mid-Lateral : Mildly hypokinetic. Right Ventricle Severely dilated right ventricle. Moderately severe global right ventricular systolic dysfunction. Atria Normal left atrium. Normal right atrium. Normal atrial septum. Mitral Valve The mitral valve is structurally normal. No prolapse or stenosis seen. Tricuspid Valve Normal tricuspid valve. Mild (1+) tricuspid valve insufficiency. Right ventricular systolic pressure estimated to be 48 mmHg. Moderate pulmonary hypertension. Aortic Valve Trisinus/trileaflet aortic valve. Normal aortic valve. Pulmonic Valve The pulmonic valve is not well visualized. Great Vessels Normal aortic root. Normal arch. The inferior vena cava is dilated. No collapse of the inferior vena cava. Pericardium/Pleural No pericardial effusion. Medication Diluted definity 3ml given slow IV push to enhance endocardial definition. MMode/2D Measurements & Calculations LVIDd: 3.0 cm IVSd: 1.4 cm Ao root diam: 3.4 cm LVIDs: 2.8 cm LVPWd: 1.7 cm RVDd: 4.9 cm FS: 6.0 % LAV(MOD-sp2): 18.8 ml LVAd ap4: 23.0 cm2 SV(MOD-sp4): 16.2 ml EDV(MOD-sp4): 54.6 ml EDV(sp4-el): 55.6 ml LVAs ap4: 17.9 cm2 ESV(MOD-sp4): 38.4 ml ESV(sp4-el): 38.7 ml EF(MOD-sp4): 29.6 % EF(sp4-el): 30.5 % SV(sp4-el): 16.9 ml Time Measurements MV dec time: 0.16 sec Doppler Measurements & Calculations MV E max emile: 38.1 cm/sec MV V2 max: 95.1 cm/sec MV P1/2t max emile: 49.1 cm/sec MV A max emile: 77.5 cm/sec MV max P.6 mmHg MV P1/2t: 65.1 msec MV E/A: 0.49 MV V2 mean: 50.9 cm/sec MV mean P.2 mmHg MV dec slope: 220.9 cm/sec2 MV V2 VTI: 13.8 cm MVA(P1/2t): 3.4 cm2 Ao V2 max: 132.4 cm/sec LV V1 max: 97.7 cm/sec PA V2 max: 68.4 cm/sec Ao max P.0 mmHg LV V1 max P.8 mmHg Ao V2 mean: 94.2 cm/sec LV V1 mean P.8 mmHg Ao mean P.9 mmHg LV V1 mean: 60.1 cm/sec Ao V2 VTI: 15.5 cm LV V1 VTI: 11.7 cm TR max emile: 308.2 cm/sec TR max P.0 mmHg Interpretation Summary The estimated ejection fraction is 45 %. Posterior-Basal: Mildly hypokinetic Infero-Basal: Mildly hypokinetic Mid-Lateral : Mildly hypokinetic Stage 1 diastolic dysfunction. Severely dilated right ventricle. Moderately severe global right ventricular systolic dysfunction. Mild (1+) tricuspid valve insufficiency. Right ventricular systolic pressure estimated to be 48 mmHg. Moderate pulmonary hypertension. The inferior vena cava is dilated The study was technically difficult. The study was technically limited. Contrast injection was performed. There is no comparison study available. Ordering Physician: Adilson Cook Referring Physician: Rey Knott M.D. Performed By: Scooter Dillon RCS
--- NOTE | 2019-02-13 08:50 | PCM.CONS.C ---
Problem List (1) Abnormal EKG Status: Acute (2) Cardiopulmonary arrest with successful resuscitation Status: Acute (3) Acute on chronic respiratory failure with hypoxia and hypercapnia Status: Acute (4) Hypertension Status: Chronic Reason for Consult Date of Consultation: 02/13/19 Reason for Consultation: Cardiopulmonary arrest, hypertension, abnormal EKG History of Present Illness: The patient is a 58 year old M, currently intubated, on propofol, unable to obtain history, no family present to assist with history, who apparently has had dyspnea on exertion and shortness of breath over the last several days, and apparently was found unresponsive last night in his home. EMS was called to his home and apparently was found to be in PEA and unresponsive. ACLS protocol was initiated in the field, and the patient received an LMA airway. Patient was brought to the emergency room and had been apparently resuscitated several times and then deteriorated and lost a pulse requiring reinitiation of ACLS protocol for better part of an hour. Initial EKG demonstrated normal sinus rhythm with isolated ST elevation in aVR with global inferior anterolateral ST segment depression. Patient's pupils are fixed and dilated per the ER physician, and was completely unresponsive from a neurological standpoint. A quick bedside echocardiogram done by the ER physician reportedly showed normal LV function at the time of his arrest. Patient lost his LMA requiring urgent reintubation. CAT scan obtained of his brain and chest demonstrated what appeared to be anoxic brain injury and significant right-sided pulmonary infiltrate and atelectasis. Patient's condition stabilized, and is placed on a propofol drip, admitted to the ICU. Currently the patient is unresponsive, on a propofol drip, blood pressure and heart rate are stable. Telemetry overnight is been negative. Repeat EKG this morning shows complete normalization of his ST segment changes. His initial troponin was 0.061, additional troponins are pending. Apparently the patient has a known history of significant COPD the details of which are being evaluated at this time. As best I can tell the patient has no history of coronary disease. [] Past Medical History Allergies/Adverse Reactions: Allergies aspirin Allergy (Verified 02/13/19 03:06) Anaphylaxis Penicillins Allergy (Verified 02/13/19 03:06) Hives Home Medications: Ambulatory Orders Medication Instructions Recorded Albuterol Aerosols [Ventolin 2.5 mg INHALATION Q6H PRN PRN 11/26/16 Aerosols] Albuterol Inhaler [Ventolin Hfa] 2 puff INHALATION Q6H PRN PRN 11/26/16 Quetiapine Fumarate [Seroquel XR] 200 mg PO QHS 11/26/16 Triamcinolone 0.1% Cream [Kenalog] 1 applic TOPICAL TID 04/29/17 Umeclidinium [place] [Incruse 1 puff INHALATION DAILY 04/29/17 Ellipta] buPROPion XL [Wellbutrin Xl] 300 mg PO DAILY 04/29/17 Baclofen 10 mg PO BID 07/12/18 Duloxetine HCl 60 mg PO DAILY 07/12/18 Losartan Potassium 100 mg PO DAILY 07/12/18 Prednisone See Taper PO DAILY #18 tab 01/01/19 levoFLOXacin tablet [Levaquin 500 mg PO DAILY@0600 #4 tab 01/01/19 tablet] Past Medical History (Chronic Problems): Chronic Problems Chronic kidney disease (CKD) (Chronic) COPD exacerbation (Chronic) Hypertension (Chronic) Pyoderma gangrenosum (Chronic) COPD (chronic obstructive pulmonary disease) (Chronic) MANDI (obstructive sleep apnea) (Chronic) Morbid obesity (Chronic) CKD (chronic kidney disease) stage 3, GFR 30-59 ml/min (Chronic) Surgical History: - - Surgical repair of bone fractures. Psychiatric History: Post traumatic stress - *Family History Maternal History Items: No pertinent history Paternal History Items: Heart Disease Sibling History Items: Heart Disease Lives: With Family Smoking Status: Never smoker Drugs: Marijuana Review of Systems - Review of Systems General: Denies: Fever, Night Sweats, Fatigue Cardiovascular: Reports: Shortness of Breath, Shortness of Breath at Rest. Denies: Chest Discomfort, Orthopnea, PND, Peripheral Edema, Palpitations, Lightheadedness, Dizziness, Near Syncope, Syncope Respiratory: Denies: Cough, Sputum Production, Hemoptysis Gastrointestinal: Denies: Hematemesis, Hematochezia, Melena Genitourinary: Denies: Dysuria, Hematuria Skin: Denies: Rash Subjectve: Patient currently intubated, sedated on a propofol drip, heme dynamically stable. Does not respond to questions. Objective: Vital Signs Temp Pulse Resp BP Pulse Ox 96.5 F L 106 H 12 187/127 H 93 02/13/19 06:45 02/13/19 07:00 02/13/19 07:00 02/13/19 07:00 02/13/19 07:00 Oxygen Flow Rate (L/min) 100 Oxygen Delivery Method Mechanical Ventilator Weight: 283 lb 4.704 oz Body Mass Index (BMI) 37.3 Intake and Output for Last 24 Hours 02/11/19 02/12/19 02/13/19 23:59 23:59 23:59 Intake Total 3386.08 / 3386.08 Balance 3386.08 / 3386.08 General: Awake, Alert, Oriented x 3 HEENT: PERRL, EOMI, Sclera Non Icteric Neck: Supple, Good ROM, No Lymph Node Enlargement Lungs: Clear to auscultation Cardiovascular: Regular Rhythm, Normal S1, Normal S2, No Murmurs, No Rubs, No Gallops Vascular: No Carotid Bruits, Normal Femoral Pulses, Normal Radial Pulses, Normal Dorsalis Pedal Pulse, Normal Posterior Tibial Pulses Abdomen: Bowel Sounds Present, Soft, Non Tender, No HSM, No Organomegaly Extremities: No Cyanosis, No Clubbing, No edema Neurological: No Focal Motor or Sensory Deficit 02/13/19 02:20: WBC 6.9, RBC 5.14, Hgb 14.6, Hct 49.1, MCV 95.5 H, MCH 28.4, MCHC 29.7 L, Plt Count 247, MPV 10.8, Immature Gran % (Auto) 1.900 H, Neut % (Auto) 34.5 L, Lymph % (Auto) 50.1 H, [place] % (Auto) 8.3, Eos % (Auto) 4.2, Baso % (Auto) 1.0, Absolute Neuts (auto) 2.4, Nucleated RBC % 0 02/13/19 02:20: PT 16.9 H, INR 1.4, APTT 39.4 H 02/13/19 02:20: Sodium 140, Potassium 4.4, Chloride 101, Carbon Dioxide 18.0 L, Anion Gap 21 H, BUN 15, Creatinine 2.23 H, Est GFR (MDRD) Af Amer 39 L, Est GFR (MDRD) Non-Af 33 L, BUN/Creatinine Ratio 6.7 L, Glucose 287 H, Calcium 9.1, Total Bilirubin 0.30, Troponin I 0.061 H 02/13/19 03:43: Urine Color Yellow, Urine Clarity Cloudy, Urine pH 7.0, Ur Specific [place] 1.015, Urine Protein 500 H, Urine Glucose (UA) 250 H, Urine Ketones Negative, Urine Occult Blood 250 H, Urine Nitrite Negative, Urine Bilirubin Negative, Urine Urobilinogen Normal, Ur Leukocyte Esterase Negative, Urine RBC 10-25 SEEN, Urine WBC 5-10 SEEN 02/13/19 03:50: Lactic Acid 5.4 H* 02/13/19 04:58: pH 7.02 L*, Bicarbonate Actual 25.9, POC Total CO2 29, Base Excess -5 L, O2 Saturation 95, ABG pCO2 99.6 H*, ABG pO2 112 H, Neno Test POS 02/13/19 07:27: pH 7.09 L*, Bicarbonate Actual 24.9, POC Total CO2 27, Base Excess -5 L, O2 Saturation 90 L, ABG pCO2 82.9 H*, ABG pO2 82, Neno Test POS 02/13/19 08:05: Lactic Acid 3.3 H Rhythm: EKG: EKG this morning shows normal sinus rhythm, normal axis, normal intervals, no ST segment changes. ECHO: Pending Stress Test: Cardiac Cath: PCI: CT Surgery: Holter monitor: EPS: PPM: CXR: Chest CT Scan: Assessment/Plan 1. Cardiopulmonary arrest: It appears the patient's cardiopulmonary arrest centered around respiratory failure given his significant right-sided pulmonary infiltrates seen on both chest x-ray and CT scan. CT scan did not suggest pulmonary embolism. This would explain why his LV function reportedly was normal on bedside echocardiogram, and that he had no significant arrhythmias that required defibrillation. Nonetheless the patient appears to be at risk for possible coronary occlusive disease and thankfully his EKG has normalized since his admission in the emergency room. His initial troponin was 0.691, and repeat troponins are pending. The patient is now hypertensive and somewhat tachycardic and would recommend initiating Lopressor 5 mg IV every 4 to 6 hours as needed to keep his MEP around 60 and his heart rate less than 100. If his hypertension continues, I have a low threshold for IV nitroglycerin drip. In addition I recommend he undergo a 2D echo with Doppler to determine his LV function, pulmonary pressures, and valvular status. As the patient's EKG is normalized and he has no overt arrhythmias, I would recommend holding off on emergent catheterization at this time. Depending upon the trend line of his troponins, as well as more importantly his cerebral viability, will determine whether we proceed with left heart catheterization. In the meantime I recommend treating him with baby aspirin 81 mg p.o. daily. Should the patient have elevated troponins I would have a low threshold for adding Plavix 3 and a mill grams x1 now followed by 75 mg a day for acute coronary syndrome. Again depending upon the patient's neurological status will determine whether he proceed with left heart catheterization. If the patient has no improvement of his neurological status, will defer to the ICU staff regarding transplant evaluation. 2. Neurological status: Would recommend obtaining a neurological consultation and possible EEG in the next several days to evaluate for anoxic brain injury. The patient reportedly had the better part of 45 minutes of CPR and was found to be in PEA according to the ER physician. 3. Discussed with Dr. Anderson. Thank you very much for the opportunity to participate in the cardiac care of your patient. Consultation time took place between 8 AM and 9 AM. Code Visit Inpatient E&M: 28096 Init Hosp L3
--- NOTE | 2019-02-13 09:39 | CON.PCM_ITS ---
Problem List (1) Cardiopulmonary arrest with successful resuscitation Status: Acute (2) Acute on chronic respiratory failure with hypoxia and hypercapnia Status: Acute (3) Right lower lobe pneumonia Status: Acute (4) COPD exacerbation Status: Chronic (5) Hypertension Status: Chronic (6) Pyoderma gangrenosum Status: Chronic (7) COPD (chronic obstructive pulmonary disease) Status: Chronic (8) MANDI (obstructive sleep apnea) Status: Chronic (9) Morbid obesity Status: Chronic (10) CKD (chronic kidney disease) stage 3, GFR 30-59 ml/min Status: Chronic Reason for Consult Date of Consultation: 02/13/19 Reason for Consultation: Arrest History of Present Illness: The patient is a 58 year old M, with past medical history listed below, who presented to [facility] on 02/13/2019 after being found down. Patient reportedly has a history of COPD with an FEV1 around 50% and seen by Dr. Velazquze as an outpatient. Patient had been reporting respiratory type symptoms over the last 3 to 4 days per family. Patient lives with his son and reportedly the son had noted patient on the floor. EMS arrived and there was no bystander CPR. Patient was reportedly in PEA and had an LMA placed. Patient was transported to the ER for further evaluation. In the ER, patient received multiple rounds of medications and extended amounts of CPR. Patient was a very difficult intubation per ER record. Patient did receive Levophed briefly. Patient also had a central line placed. CT of the head showed generalized edema, but no acute bleed. CT of the chest showed a dense right lower lobe infiltrate without obvious PE. Multiple rib fractures ar e noted. There was some concern for an ST elevation PR, but patient was not taken to the lab secondary to concern that this was the result of a respiratory arrest and extended CPR. There was difficulty ventilating the patient secondary to peak airway pressures. I was called on the phone and recommended paralysis with propofol. Patient was able to be placed on the ventilator with elevated PEEP and transported to the intensive care unit. Since arrival to the intensive care unit, patient has not had any pupillary, gag or cough reflexes. Patient is not localizing to pain. Discussed with the family at length at the bedside. Patient reportedly has a history of a hiatal hernia and was to go to surgery in the near future for correction. Family believes the patient is cared for at the [facility] for his respiratory condition. Patient was recently admitted to the hospital. Patient reportedly does have a history of MANDI, but is noncompliant with therapy. Patient has multiple medications prescribed, but reportedly does not take all of them except for his blood pressure medications. Patient states that his Seroquel was over sedating and he did not take it often. Discussed with the family about CODE STATUS. Family is in agreement the patient should be full code for the first 48 hours. Will reassess mental status after that. May consider palliative measures if neurologic status is not improving. Past Medical History Past Medical History (Chronic Problems): Chronic Problems Chronic kidney disease (CKD) (Chronic) COPD exacerbation (Chronic) Hypertension (Chronic) Pyoderma gangrenosum (Chronic) COPD (chronic obstructive pulmonary disease) (Chronic) MANDI (obstructive sleep apnea) (Chronic) Morbid obesity (Chronic) CKD (chronic kidney disease) stage 3, GFR 30-59 ml/min (Chronic) Allergies aspirin Allergy (Verified 02/13/19 03:06) Anaphylaxis Penicillins Allergy (Verified 02/13/19 03:06) Hives Home Medications: Ambulatory Orders Medication Instructions Recorded Albuterol Aerosols [Ventolin 2.5 mg INHALATION Q6H PRN PRN 11/26/16 Aerosols] Albuterol Inhaler [Ventolin Hfa] 2 puff INHALATION Q6H PRN PRN 11/26/16 Quetiapine Fumarate [Seroquel XR] 200 mg PO QHS 11/26/16 Triamcinolone 0.1% Cream [Kenalog] 1 applic TOPICAL TID 04/29/17 Umeclidinium [place] [Incruse 1 puff INHALATION DAILY 04/29/17 Ellipta] buPROPion XL [Wellbutrin Xl] 300 mg PO DAILY 04/29/17 Baclofen 10 mg PO BID 07/12/18 Duloxetine HCl 60 mg PO DAILY 07/12/18 Losartan Potassium 100 mg PO DAILY 07/12/18 Prednisone See Taper PO DAILY #18 tab 01/01/19 levoFLOXacin tablet [Levaquin 500 mg PO DAILY@0600 #4 tab 01/01/19 tablet] Surgical History: - - Surgical repair of bone fractures. Psychiatric History: Post traumatic stress Lives: With Family Smoking Status: Never smoker Drugs: Marijuana - *Family History Maternal History Items: No pertinent history Paternal History Items: Heart Disease Sibling History Items: Heart Disease Review of Systems Unable to obtain accurate/complete ROS d/t: Mental status Patient Problems: Active and Suspected Problems Cardiopulmonary arrest with successful resuscitation (Acute) Acute on chronic respiratory failure with hypoxia and hypercapnia (Acute) Right lower lobe pneumonia (Acute) Abnormal EKG (Acute) Objective: All imaging was personally reviewed. Dense right lower lobe infiltrate noted on CT of the chest along with multiple rib fractures. No PE was appreciated. Chest x-ray shows significant right-sided infiltrates, but supportive devices are in appropriate position. No pulmonary function test or echocardiogram are available for review. - Physical Exam General: - - RASS -4. Obese. Fair vent synchrony. HEENT: Atraumatic, Normocephalic, - - Scleral injection without icterus Oral: Moist Mucosa, No Gingival or Mucosal Lesions/ Ulcerations, - - Poor dentition Neck: Supple, No JVD, No Nodes, Trachea Midline Lungs: No rales, Diminished, Rhonchi - Right base, Wheezes - Global Cardiovascular: Normal S1, Normal S2, No murmurs, No rub noted, No Gallop, Tachycardic Abdomen: Bowel Sounds Present, Soft, Non Tender, Non-Distended, Obese Extremities: No clubbing, No cyanosis, Edema Skin: No rashes, No breakdown, - - Venous stasis changes lower extremities Musculoskeletal: No Tenderness to Palpation of Joints or Extremities, No Muscle Wasting Lymphatic: No Cervical, Supraclavicular, or Inguinal Adenopathy Neurological: - - Currently, patient does not have any gag or cough reflexes. Patient not localizing to pain. Pupils are not active. Psych/Mental Status: Flat Affect Vital Signs Temp Pulse Resp BP Pulse Ox 35.8 C L 106 H 12 187/127 H 93 02/13/19 06:45 02/13/19 07:00 02/13/19 07:00 02/13/19 07:00 02/13/19 07:00 Oxygen Flow Rate (L/min) 100 Oxygen Delivery Method Mechanical Ventilator Weight: 128.5 kg Body Mass Index (BMI) 37.3 Intake and Output for Last 24 Hours 02/11/19 02/12/19 02/13/19 23:59 23:59 23:59 Intake Total 3386.08 / 3386.08 Balance 3386.08 / 3386.08 Laboratory Tests Past 24 Hrs 02/13/19 02/13/19 02/13/19 02:20 02:20 02:20 WBC 6.9 RBC 5.14 Hgb 14.6 Hct 49.1 MCV 95.5 H MCH 28.4 MCHC 29.7 L RDW Std Deviation 47.8 H RDW Coeff of Roge 13.5 Plt Count 247 MPV 10.8 Immature Gran % (Auto) 1.900 H Neut % (Auto) 34.5 L Lymph % (Auto) 50.1 H [place] % (Auto) 8.3 Eos % (Auto) 4.2 Baso % (Auto) 1.0 Absolute Neuts (auto) 2.4 Absolute Lymphs (auto) 3.46 Nucleated RBC % 0 PT 16.9 H INR 1.4 APTT 39.4 H Specimen Type Sample Site pH Bicarbonate Actual POC Total CO2 Base Excess O2 Saturation O2 % ABG pCO2 ABG pO2 Neno Test Respiration Rate O2 Delivery Device Minute Volume Vent Mode Tidal Volume POC PEEP Blood Gas Notified Whom Blood Gas Notified Time Sodium 140 Potassium 4.4 Chloride 101 Carbon Dioxide 18.0 L Anion Gap 21 H BUN 15 Creatinine 2.23 H Est GFR (MDRD) Af Amer 39 L Est GFR (MDRD) Non-Af 33 L BUN/Creatinine Ratio 6.7 L Glucose 287 H Lactic Acid Calcium 9.1 Total Bilirubin 0.30 AST 67 H ALT 77 H Alkaline Phosphatase 104 Troponin I 0.061 H Total Protein 6.9 Albumin 2.8 L Globulin 4.1 Albumin/Globulin Ratio 0.7 L Urine Color Urine Clarity Urine pH Ur Specific Errol Urine Protein Urine Glucose (UA) Urine Ketones Urine Occult Blood Urine Nitrite Urine Bilirubin Urine Urobilinogen Ur Leukocyte Esterase Urine RBC Urine WBC Ur Squamous Epith Cells Urine Bacteria Urine Mucus 02/13/19 02/13/19 02/13/19 03:43 03:50 04:58 WBC RBC Hgb Hct MCV MCH MCHC RDW Std Deviation RDW Coeff of Roge Plt Count MPV Immature Gran % (Auto) Neut % (Auto) Lymph % (Auto) [place] % (Auto) Eos % (Auto) Baso % (Auto) Absolute Neuts (auto) Absolute Lymphs (auto) Nucleated RBC % PT INR APTT Specimen Type ART Sample Site L Radial pH 7.02 L* Bicarbonate Actual 25.9 POC Total CO2 29 Base Excess -5 L O2 Saturation 95 O2 % 100 ABG pCO2 99.6 H* ABG pO2 112 H Neno Test POS Respiration Rate 20 O2 Delivery Device Vent Minute Volume 12.00 Vent Mode A-C Tidal Volume 350 POC PEEP 10 Blood Gas Notified Whom ED Blood Gas Notified Time 450 Sodium Potassium Chloride Carbon Dioxide Anion Gap BUN Creatinine Est GFR (MDRD) Af Amer Est GFR (MDRD) Non-Af BUN/Creatinine Ratio Glucose Lactic Acid 5.4 H* Calcium Total Bilirubin AST ALT Alkaline Phosphatase Troponin I Total Protein Albumin Globulin Albumin/Globulin Ratio Urine Color Yellow Urine Clarity Cloudy Urine pH 7.0 Ur Specific Errol 1.015 Urine Protein 500 H Urine Glucose (UA) 250 H Urine Ketones Negative Urine Occult Blood 250 H Urine Nitrite Negative Urine Bilirubin Negative Urine Urobilinogen Normal Ur Leukocyte Esterase Negative Urine RBC 10-25 SEEN Urine WBC 5-10 SEEN Ur Squamous Epith Cells 0 SEEN Urine Bacteria 1+ Urine Mucus RARE 02/13/19 02/13/19 02/13/19 07:27 08:05 09:00 WBC RBC Hgb Hct MCV MCH MCHC RDW Std Deviation RDW Coeff of Roge Plt Count MPV Immature Gran % (Auto) Neut % (Auto) Lymph % (Auto) [place] % (Auto) Eos % (Auto) Baso % (Auto) Absolute Neuts (auto) Absolute Lymphs (auto) Nucleated RBC % PT INR APTT Specimen Type ART Sample Site R Radial pH 7.09 L* Bicarbonate Actual 24.9 POC Total CO2 27 Base Excess -5 L O2 Saturation 90 L O2 % 80 ABG pCO2 82.9 H* ABG pO2 82 Neno Test POS Respiration Rate 20 O2 Delivery Device Vent Minute Volume 7.00 Vent Mode A-C Tidal Volume 350 POC PEEP 10 Blood Gas Notified Whom ICU Blood Gas Notified Time 726 Sodium Potassium Chloride Carbon Dioxide Anion Gap BUN Creatinine Est GFR (MDRD) Af Amer Est GFR (MDRD) Non-Af BUN/Creatinine Ratio Glucose Lactic Acid 3.3 H Calcium Total Bilirubin AST ALT Alkaline Phosphatase Troponin I Pending Total Protein Albumin Globulin Albumin/Globulin Ratio Urine Color Urine Clarity Urine pH Ur Specific Errol Urine Protein Urine Glucose (UA) Urine Ketones Urine Occult Blood Urine Nitrite Urine Bilirubin Urine Urobilinogen Ur Leukocyte Esterase Urine RBC Urine WBC Ur Squamous Epith Cells Urine Bacteria Urine Mucus Clinical Impression(s) from Imaging Studies Brain CT 02/13/19 02:20 IMPRESSION: Findings highly suspicious for diffuse hypoxic injury to the brain with early loss of morrissey-white white matter differentiation. Consider noncontrast MRI of brain to confirm and better evaluate the extent. No apparent hemorrhage or mass. Electronically Signed: Manuel Peoples, at 3:22 EDT Tel , Service support , Chest CTA 02/13/19 02:45 IMPRESSION: No pulmonary embolus. No thoracic aortic dissection or aneurysm. Right upper lobe airspace disease most likely multifocal pneumonia. Complete atelectasis of the right lower lobe. Acute nondisplaced left anterior third, fourth, fifth, sixth and right anterior fifth, sixth rib fractures. Electronically Signed: Jayravin Richelle, at 3:32 EDT Tel , Service support , Chest X-Ray 02/13/19 05:13 IMPRESSION: Support lines and tubes as described. Persistent diffuse right lung opacities likely due to underlying pneumonia and right lower lobe atelectasis. Electronically Signed: Brennon Sultana, at 7:34 EDT Tel , Service support , Assessment/Plan Active and Suspected Problems Cardiopulmonary arrest with successful resuscitation (Acute) Acute on chronic respiratory failure with hypoxia and hypercapnia (Acute) Right lower lobe pneumonia (Acute) Abnormal EKG (Acute) RECOMMENDATIONS: 1. Continue neurochecks 2. Wean oxygen as tolerated, keep PEEP at current levels 3. Empiric antibiotics for pneumonia 4. Initiate steroids and bronchodilators 5. Investigate organ donation status IMPRESSIONS: 1. 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 Patient was found in PEA at the scene. Patient has received extensive CPR and CT of the head is showing loss of morrissey-white differentiation. Patient does not appear to have any spinal reflexes at this time. We will continue to monitor closely. Unclear if patient is an organ donor. Patient does appear to have stabilized from a hemodynamic standpoint following control of respiratory symptoms. 2. Acute combined respiratory failure/probable aspiration pneumonia/multiple rib fractures/acute exacerbation of COPD Some difficulty in endotracheal tube placement. Patient does have an extensive right-sided infiltrate, likely secondary to aspiration. No recent imaging to suggest the patient had a right-sided pneumonia leading to acute arrest. Patient does appear to have CO2 retention at baseline, but this cannot be verified. Patient appears to be stabilized on elevated PEEP and FiO2. Repeat ABG did show significant combined acidosis, so minute ventilation was increased. Patient does have multiple rib fractures, likely secondary to CPR. Patient does not appear to have a flail chest at this time. Patient will be treated with empiric antibiotics, steroids and bronchodilators. 3. Possible myocardial infarction She has had normalization of EKG after stabilization of hemodynamic status. Patient would have multiple risk factors for coronary artery disease. Troponin continues to elevate. Unclear if this is secondary to prolonged arrest versus other etiology. We will continue to monitor mental status. Patient is improving, heart catheterization may be necessary. Cardiology is following. Would hold off on any systemic anticoagulation given patient's multiple rib fractures and cerebral edema, which can complicate management of bleeding complications. 4. MANDI?noncompliant/obesity/poor history/CKD stage III Complicates care, management, recovery and prognosis. Did verify with the family that patient is a full code for the first 48 hours. Will reassess pending mental status. Renal function appears to be at its baseline, but will need to follow closely. Addendum [id number]: Met with family at their request to discuss patient's current situation. Patient did spike a fever to 105 ?F and this is concerning to them. They are concerned about his outcome. After review of his current condition and plans, they would like to continue with aggressive standpoint at this time. However, after 48 hours, palliative measures are likely to be employed. TIME: 107 minutes of critical care time spent addressing patient's cardiac arrest, respiratory failure, possible myocardial infarction, clarification of CODE STATUS, review of all data and collaboration with care team (7 AM to 10 AM, 4 PM to 4:22 PM) Code Visit Procedures: 81031 Critial Care Addl 30 Min 9xxxx: [id number] Critical care first hour Multi Select Codes - Hospitalists' Procedures Procedures: 26332 Critial Care Addl 30 Min
--- NOTE | 2019-02-13 10:10 | CPS ---
Critical results read back to Dr. Anderson.
[2019-02-13] MEDS: Chlorhexidine 15 ML PO ×2 (10:54→22:29)
[2019-02-13] MEDS: Metoprolol Tartrate 5 MG/5 ML Vial 2.5 MG IV (10:55)
[2019-02-13] MEDS: Famotidine 200 MG/20 ML MDV 20 MG in 0.9% Normal Saline (Pres. free 8 ML 300 MG IV ×2 (10:57→22:37)
[2019-02-13] MEDS: Propofol 10MG/Ml 1,000 MG/100 ML Bottle 12.9 MG CONT INF (10:58)
--- NOTE | 2019-02-13 11:36 | CASEMGMT ---
Social Work SW entered pt room. Family member sitting with pt. SW introduced self and offered support. Family member present is Carmela, pt ex . Carmela states pt is not at this time. Pt has 6 children. Chiquita, Greg, Brook, Brennon, Chema and Neeta. Carmela confirms that Chiquita is the oldest. Also pt mother Helga is involved. Pt has no health care POA or living will. Pt currently living with his sons Brennon and Chema (age 17). Pt has had multiple medical comorbidities and has difficulty getting around. He is able to drive but not able to ambulate extended distances. Carmela indicates pt was fairly independent at home. SW then went to ICU waiting room. Many other family members in waiting room. A second woman stating she is pt ex and several of pt children including Chiquita however, Chiquita is sleeping at this time and SW did not wake to talk at this time. SW attempted to offer emotional support to family. Daughters stating they are a close family and denying needs at this time. SW informed family that SW is available should they have further needs. Pt drivers license is scanned into medical record. No indication on license that pt would like to be an organ donor. Pt nurse made aware. KASIE Hebert
[2019-02-13] MEDS: Enoxaparin 40 MG/0.4 ML Syringe SC (12:12)
[2019-02-13 12:15] LABS: Bedside Glucose 205 mg/dL (70-110)
[2019-02-13] MEDS: Insulin Lispro 100 UNIT/ML INSULN.PEN SC (12:16)
[2019-02-13] MEDS: Baclofen 10 MG Tablet 5 MG GT ×2 (13:38→22:32)
[2019-02-13] MEDS: Acetaminophen 650 MG/20 ML UDC GT (13:39)
[2019-02-13 14:44] LABS: M R Staph aureus DNA By PCR Negative (Negative); Probe Check PASS; Specimen Processing Control PASS
[2019-02-13] MEDS: Acetaminophen 650 MG Suppository RECTAL (16:22)
[2019-02-13] MEDS: Propofol 10MG/Ml 1,000 MG/100 ML Bottle 17.1 MG CONT INF (16:26)
[2019-02-13 18:36] LABS: Bedside Glucose 129 mg/dL (70-110)
[2019-02-13] MEDS: Metoprolol Tartrate 25 MG Tablet GT (22:32)
[2019-02-13] MEDS: 0.9% Saline Lock 10 ML Syringe IV ×2 (22:33→23:43)
[2019-02-13] MEDS: Propofol 10MG/Ml 1,000 MG/100 ML Bottle 15.4 MG CONT INF (23:43)
[2019-02-14] VITALS (55 sets, daily range): BP systolic 61–174; BP diastolic 40–126; PULSE 93–124; RESP 15–23; TEMP 35.7–40.4; O2SAT 91–98
[2019-02-14 00:01] LABS: Bedside Glucose 106 mg/dL (70-110)
[2019-02-14] MEDS: Ipratropium/Albuterol Sulfate 3 ML AMPUL.NEB INHALATION ×6 (03:50→22:50)
[2019-02-14 05:19] LABS: Absolute Lymphocyte Count 1.05 X10^3/uL (0.83-4.51); Basophil# 0.04 X10^3/uL; Basophil% 0.2 % (0-1); Eosinophil# 0.05 X10^3/uL; Eosinophils% 0.2 % (0-5); Hematocrit 52.4 % (40-54); Hemoglobin 16.2 g/dL (13.0-16.5); Lymphocyte # 1.05 X10^3/ul (4.0); Lymphocyte % 4.8 % (19-41); Mean Corp Hgb Conc 30.9 g/dL (32-36); Mean Corpuscular Hgb 28.4 pg (27.0-32.0); Mean Corpuscular Volume 91.8 fL (80-94); Mean Platelet Vol. 10.5 fl (6.2-12.0); Monocyte# 0.64 X10^3/uL; Monocyte% 2.9 % (0-10); NRBC Flagged by Analyzer 0.2 % (0-5); Neutrophil # 19.97 X10^3/uL (2.7-7.7); Neutrophil % 90.9 % (47-70); POSITIVE MORPHOLOGY YES; Platelet Count 250 K/mm3 (150-450); RBC Distribution Width CV 14.6 % (11.6-14.6); RBC Distribution Width SD 49.3 fl (35.1-43.9); Red Blood Count 5.71 M/mm3 (4.6-6.2)
[2019-02-14 05:24] LABS: International Normalized Ratio 1.4; Prothrombin Time (Protime)PT. 16.7 SECONDS (11.7-14.9)
[2019-02-14 05:25] LABS: Differential Indicated SCAN CRITERIA MET
[2019-02-14] MEDS: Propofol 10MG/Ml 1,000 MG/100 ML Bottle 15.4 MG CONT INF (05:38)
[2019-02-14] MEDS: 0.9% Saline Lock 10 ML Syringe IV ×3 (05:50→11:25)
[2019-02-14 06:39] LABS: ALB/GLOB Ratio 0.6 RATIO (0.9-2.4); AST(SGOT) 685 U/L (15-37); Alanine Aminotransfer ALT/SGPT 351 U/L (16-61); Albumin, Serum 2.8 g/dL (3.2-5.0); Alkaline Phosphatase 84 U/L (45-117); Anion Gap 11 (5-15); BUN 50 mg/dL (7-18); BUN/Creat Ratio 8.4 RATIO (10-20); Calcium,Total 7.6 mg/dL (8.5-10.1); Chloride 105 mmol/L (98-107); Creatinine, Serum 5.93 mg/dL (0.70-1.30); EST Glomerular Filtration Rate 11 mL/min (>60); Est Glom Filt Rate - Afr Amer 13 mL/min (>60); Estimated Creatinine Clearance 15.72 ml/min; Globulin 4.9 g/dL (2.2-4.2); Glucose 118 mg/dL (74-106); Phosphorus 4.1 mg/dL (2.5-4.9); Potassium 6.2 mmol/L (3.5-5.1); Protein, Total 7.7 g/dL (6.4-8.2); Sodium Level 137 mmol/L (136-145)
[2019-02-14] MEDS: Baclofen 10 MG Tablet 5 MG GT ×3 (06:49→22:12)
[2019-02-14 06:50] LABS: Differential Comment SCANNED
--- NOTE | 2019-02-14 08:08 | PN_ITS ---
Subjective: Patient has been persistently febrile throughout the evening. Patient is currently on Levophed at 10 mcg to maintain blood pressure intermittently. Patient has had elevated blood pressures and low blood pressures throughout the evening. Patient's neuro status overnight has not changed. Patient did not have any significant spinal reflexes reported by nursing. Patient has remained on a cooling blanket. Per nursing, family has expressed wishes that they are waiting for patient's brother to come in from [place]. Once they arrive, palliative measures will be anticipated this evening. This has not been confirmed by myself with the family members. General: Lethargic, Non-Cooperative HEENT: Atraumatic, Normocephalic, - - Pupils are fixed and dilated. Oral: Moist Mucosa, No Gingival or Mucosal Lesions/ Ulcerations, - - Poor dentition Neck: Supple, No JVD, No Nodes, Trachea Midline Lungs: Diminished, Rhonchi - Right, Wheezes Cardiovascular: Normal S1, Normal S2, No murmurs, No rub noted, No Gallop, Tachycardic Abdomen: Soft, Non Tender, Bowel Sounds Not Present, Distended, Obese Extremities: No cyanosis, Diminished Peripheral Pulses, Edema Skin: - - No significant change compared to yesterday Musculoskeletal: No Tenderness to Palpation of Joints or Extremities, No Muscle Wasting Lymphatic: No Cervical, Supraclavicular, or Inguinal Adenopathy Neurological: - - Patient has no gag, corneal or cough reflex. Pupils are fixed and dilated. No withdrawal to painful stimulus. Cold calorics not performed. Negative doll's eyes Psych/Mental Status: Flat Affect Vital Signs Temp Pulse Resp BP Pulse Ox 40.0 C H 109 H 20 H 102/40 L 94 02/14/19 07:00 02/14/19 07:00 02/14/19 07:00 02/14/19 07:00 02/14/19 07:00 Oxygen Flow Rate (L/min) 100 Oxygen Delivery Method Mechanical Ventilator Weight: 133.2 kg Body Mass Index (BMI) 37.3 Intake and Output for Last 24 Hours 02/12/19 02/13/19 02/14/19 23:59 23:59 23:59 Intake Total 3886.51 / 3886.51 246.93 / 246.93 Output Total 975 / 1325 395 / 395 Balance 2911.51 / 2561.51 -148.07 / -148.07 Labs (Last 48 Hours) 02/13/19 02/13/19 02/13/19 02:20 02:20 02:20 WBC 6.9 RBC 5.14 Hgb 14.6 Hct 49.1 MCV 95.5 H MCH 28.4 MCHC 29.7 L RDW Std Deviation 47.8 H RDW Coeff of Roge 13.5 Plt Count 247 MPV 10.8 Immature Gran % (Auto) 1.900 H Neut % (Auto) 34.5 L Lymph % (Auto) 50.1 H O'Brien % (Auto) 8.3 Eos % (Auto) 4.2 Baso % (Auto) 1.0 Absolute Neuts (auto) 2.4 Absolute Lymphs (auto) 3.46 Nucleated RBC % 0 Differential Comment PT 16.9 H INR 1.4 APTT 39.4 H Specimen Type Sample Site pH Bicarbonate Actual POC Total CO2 Base Excess O2 Saturation O2 % ABG pCO2 ABG pO2 Neno Test Respiration Rate O2 Delivery Device Minute Volume Vent Mode Tidal Volume POC PEEP Blood Gas Notified Whom Blood Gas Notified Time Sodium 140 Potassium 4.4 Chloride 101 Carbon Dioxide 18.0 L Anion Gap 21 H BUN 15 Creatinine 2.23 H Estim Creat Clear Calc Est GFR (MDRD) Af Amer 39 L Est GFR (MDRD) Non-Af 33 L BUN/Creatinine Ratio 6.7 L Glucose 287 H Lactic Acid Calcium 9.1 Phosphorus Magnesium Total Bilirubin 0.30 AST 67 H ALT 77 H Alkaline Phosphatase 104 Troponin I 0.061 H Total Protein 6.9 Albumin 2.8 L Globulin 4.1 Albumin/Globulin Ratio 0.7 L Urine Color Urine Clarity Urine pH Ur Specific [place] Urine Protein Urine Glucose (UA) Urine Ketones Urine Occult Blood Urine Nitrite Urine Bilirubin Urine Urobilinogen Ur Leukocyte Esterase Urine RBC Urine WBC Ur Squamous Epith Cells Urine Bacteria Urine Mucus MRSA (PCR) POC Glucose 02/13/19 02/13/19 02/13/19 03:43 03:50 04:58 WBC RBC Hgb Hct MCV MCH MCHC RDW Std Deviation RDW Coeff of Roge Plt Count MPV Immature Gran % (Auto) Neut % (Auto) Lymph % (Auto) O[place]Brien % (Auto) Eos % (Auto) Baso % (Auto) Absolute Neuts (auto) Absolute Lymphs (auto) Nucleated RBC % Differential Comment PT INR APTT Specimen Type ART Sample Site L Radial pH 7.02 L* Bicarbonate Actual 25.9 POC Total CO2 29 Base Excess -5 L O2 Saturation 95 O2 % 100 ABG pCO2 99.6 H* ABG pO2 112 H Neno Test POS Respiration Rate 20 O2 Delivery Device Vent Minute Volume 12.00 Vent Mode A-C Tidal Volume 350 POC PEEP 10 Blood Gas Notified Whom ED Blood Gas Notified Time 450 Sodium Potassium Chloride Carbon Dioxide Anion Gap BUN Creatinine Estim Creat Clear Calc Est GFR (MDRD) Af Amer Est GFR (MDRD) Non-Af BUN/Creatinine Ratio Glucose Lactic Acid 5.4 H* Calcium Phosphorus Magnesium Total Bilirubin AST ALT Alkaline Phosphatase Troponin I Total Protein Albumin Globulin Albumin/Globulin Ratio Urine Color Yellow Urine Clarity Cloudy Urine pH 7.0 Ur Specific [place] 1.015 Urine Protein 500 H Urine Glucose (UA) 250 H Urine Ketones Negative Urine Occult Blood 250 H Urine Nitrite Negative Urine Bilirubin Negative Urine Urobilinogen Normal Ur Leukocyte Esterase Negative Urine RBC 10-25 SEEN Urine WBC 5-10 SEEN Ur Squamous Epith Cells 0 SEEN Urine Bacteria 1+ Urine Mucus RARE MRSA (PCR) POC Glucose 02/13/19 02/13/19 02/13/19 07:27 08:05 09:00 WBC RBC Hgb Hct MCV MCH MCHC RDW Std Deviation RDW Coeff of Roge Plt Count MPV Immature Gran % (Auto) Neut % (Auto) Lymph % (Auto) [place] % (Auto) Eos % (Auto) Baso % (Auto) Absolute Neuts (auto) Absolute Lymphs (auto) Nucleated RBC % Differential Comment PT INR APTT Specimen Type ART Sample Site R Radial pH 7.09 L* Bicarbonate Actual 24.9 POC Total CO2 27 Base Excess -5 L O2 Saturation 90 L O2 % 80 ABG pCO2 82.9 H* ABG pO2 82 Neno Test POS Respiration Rate 20 O2 Delivery Device Vent Minute Volume 7.00 Vent Mode A-C Tidal Volume 350 POC PEEP 10 Blood Gas Notified Whom ICU Blood Gas Notified Time 726 Sodium Potassium Chloride Carbon Dioxide Anion Gap BUN Creatinine Estim Creat Clear Calc Est GFR (MDRD) Af Amer Est GFR (MDRD) Non-Af BUN/Creatinine Ratio Glucose Lactic Acid 3.3 H Calcium Phosphorus Magnesium Total Bilirubin AST ALT Alkaline Phosphatase Troponin I 79.200 H* Total Protein Albumin Globulin Albumin/Globulin Ratio Urine Color Urine Clarity Urine pH Ur Specific [place] Urine Protein Urine Glucose (UA) Urine Ketones Urine Occult Blood Urine Nitrite Urine Bilirubin Urine Urobilinogen Ur Leukocyte Esterase Urine RBC Urine WBC Ur Squamous Epith Cells Urine Bacteria Urine Mucus MRSA (PCR) POC Glucose 02/13/19 02/13/19 02/13/19 12:09 13:00 18:28 WBC RBC Hgb Hct MCV MCH MCHC RDW Std Deviation RDW Coeff of Roge Plt Count MPV Immature Gran % (Auto) Neut % (Auto) Lymph % (Auto) [place] % (Auto) Eos % (Auto) Baso % (Auto) Absolute Neuts (auto) Absolute Lymphs (auto) Nucleated RBC % Differential Comment PT INR APTT Specimen Type Sample Site pH Bicarbonate Actual POC Total CO2 Base Excess O2 Saturation O2 % ABG pCO2 ABG pO2 Neno Test Respiration Rate O2 Delivery Device Minute Volume Vent Mode Tidal Volume POC PEEP Blood Gas Notified Whom Blood Gas Notified Time Sodium Potassium Chloride Carbon Dioxide Anion Gap BUN Creatinine Estim Creat Clear Calc Est GFR (MDRD) Af Amer Est GFR (MDRD) Non-Af BUN/Creatinine Ratio Glucose Lactic Acid Calcium Phosphorus Magnesium Total Bilirubin AST ALT Alkaline Phosphatase Troponin I Total Protein Albumin Globulin Albumin/Globulin Ratio Urine Color Urine Clarity Urine pH Ur Specific [place] Urine Protein Urine Glucose (UA) Urine Ketones Urine Occult Blood Urine Nitrite Urine Bilirubin Urine Urobilinogen Ur Leukocyte Esterase Urine RBC Urine WBC Ur Squamous Epith Cells Urine Bacteria Urine Mucus MRSA (PCR) Negative POC Glucose 205 H 129 H 02/13/19 02/14/19 02/14/19 23:49 05:00 05:00 WBC 22.0 H RBC 5.71 Hgb 16.2 Hct 52.4 MCV 91.8 MCH 28.4 MCHC 30.9 L RDW Std Deviation 49.3 H RDW Coeff of Roge 14.6 Plt Count 250 MPV 10.5 Immature Gran % (Auto) 1.000 H Neut % (Auto) 90.9 H Lymph % (Auto) 4.8 L [place] % (Auto) 2.9 Eos % (Auto) 0.2 Baso % (Auto) 0.2 Absolute Neuts (auto) 20.0 H Absolute Lymphs (auto) 1.05 Nucleated RBC % 0.2 Differential Comment SCANNED PT 16.7 H INR 1.4 APTT Specimen Type Sample Site pH Bicarbonate Actual POC Total CO2 Base Excess O2 Saturation O2 % ABG pCO2 ABG pO2 Neno Test Respiration Rate O2 Delivery Device Minute Volume Vent Mode Tidal Volume POC PEEP Blood Gas Notified Whom Blood Gas Notified Time Sodium Potassium Chloride Carbon Dioxide Anion Gap BUN Creatinine Estim Creat Clear Calc Est GFR (MDRD) Af Amer Est GFR (MDRD) Non-Af BUN/Creatinine Ratio Glucose Lactic Acid Calcium Phosphorus Magnesium Total Bilirubin AST ALT Alkaline Phosphatase Troponin I Total Protein Albumin Globulin Albumin/Globulin Ratio Urine Color Urine Clarity Urine pH Ur Specific [place] Urine Protein Urine Glucose (UA) Urine Ketones Urine Occult Blood Urine Nitrite Urine Bilirubin Urine Urobilinogen Ur Leukocyte Esterase Urine RBC Urine WBC Ur Squamous Epith Cells Urine Bacteria Urine Mucus MRSA (PCR) POC Glucose 106 02/14/19 02/14/19 05:00 05:50 WBC RBC Hgb Hct MCV MCH MCHC RDW Std Deviation RDW Coeff of Roge Plt Count MPV Immature Gran % (Auto) Neut % (Auto) Lymph % (Auto) [place] % (Auto) Eos % (Auto) Baso % (Auto) Absolute Neuts (auto) Absolute Lymphs (auto) Nucleated RBC % Differential Comment PT INR APTT Specimen Type Sample Site pH Bicarbonate Actual POC Total CO2 Base Excess O2 Saturation O2 % ABG pCO2 ABG pO2 Neno Test Respiration Rate O2 Delivery Device Minute Volume Vent Mode Tidal Volume POC PEEP Blood Gas Notified Whom Blood Gas Notified Time Sodium Cancelled 137 Potassium Cancelled 6.2 H* Chloride Cancelled 105 Carbon Dioxide Cancelled 21.0 Anion Gap Cancelled 11 BUN Cancelled 50 H Creatinine Cancelled 5.93 H Estim Creat Clear Calc Cancelled 15.72 Est GFR (MDRD) Af Amer Cancelled 13 L Est GFR (MDRD) Non-Af Cancelled 11 L BUN/Creatinine Ratio Cancelled 8.4 L Glucose Cancelled 118 H Lactic Acid Calcium Cancelled 7.6 L Phosphorus Cancelled 4.1 Magnesium Cancelled 2.0 Total Bilirubin Cancelled 0.50 AST Cancelled 685 H ALT Cancelled 351 H Alkaline Phosphatase Cancelled 84 Troponin I Total Protein Cancelled 7.7 Albumin Cancelled 2.8 L Globulin Cancelled 4.9 H Albumin/Globulin Ratio Cancelled 0.6 L Urine Color Urine Clarity Urine pH Ur Specific [place] Urine Protein Urine Glucose (UA) Urine Ketones Urine Occult Blood Urine Nitrite Urine Bilirubin Urine Urobilinogen Ur Leukocyte Esterase Urine RBC Urine WBC Ur Squamous Epith Cells Urine Bacteria Urine Mucus MRSA (PCR) POC Glucose Microbiology 02/13/19 13:00 Sputum, Tracheal Aspirate Gram Stain - Final Medical Necessity - Tobacco Use Smoking Status: Never smoker Assessment/Plan All Active Problems Cardiopulmonary arrest with successful resuscitation (Acute) Acute on chronic respiratory failure with hypoxia and hypercapnia (Acute) Right lower lobe pneumonia (Acute) Abnormal EKG (Acute) RECOMMENDATIONS: 1. Continue pressors for now 2. Wean oxygen as tolerated 3. Empiric antibiotics for pneumonia 4. Continue steroids and bronchodilators 5. Investigate organ donation status 6. Anticipate palliative measures later today IMPRESSIONS: 1. 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 Given patient's family's wishes to withdraw care, will check for organ donation status. If patient is not an organ donor or does not wish to be considered, we will not proceed with formal brain testing. Anticipate palliative measures later today. 2. Acute combined respiratory failure/probable aspiration pneumonia/multiple rib fractures/acute exacerbation of COPD Some difficulty in endotracheal tube placement. Patient does have an ext ensive right-sided infiltrate, likely secondary to aspiration. No recent imaging to suggest the patient had a right-sided pneumonia leading to acute arrest. Patient does appear to have CO2 retention at baseline, but this cannot be verified. Patient appears to be stabilized on elevated PEEP and FiO2. Peripheral pulse oximetry has been inconsistent. Will obtain an ABG for verification. 3. Possible myocardial infarction She has had normalization of EKG after stabilization of hemodynamic status. Patient would have multiple risk factors for coronary artery disease. Troponin continues to elevate. Unclear if this is secondary to prolonged arrest versus other etiology. Patient appears to be brain at this time, but confirmation testing is not been completed. Patient is improving, heart catheterization may be necessary. Cardiology is following. Would hold off on any systemic anticoagulation given patient's multiple rib fractures and cerebral edema, which can complicate management of bleeding complications. 4. MANDI?noncompliant/obesity/poor history/CKD stage III Complicates care, management, recovery and prognosis. Did verify with the family that patient is a full code for the first 48 hours. Will reassess pending mental status. Patient appears to be in renal shutdown. TIME: 32 minutes of critical care time spent addressing patient's cardiac arrest, respiratory failure, possible myocardial infarction, clarification of CODE STATUS, review of all data and collaboration with care team (6:30 AM to 8:20 AM) Code Visit Procedures: 64375 Critial Care 1st Hr
[2019-02-14] MEDS: TITRATION PARAMETER CHANGE 1 EACH IV (08:13)
[2019-02-14 08:41] LABS: Allen Test POS; Base Excess -12 mmol/L (-2 to +2); Bicarbonate 16.3 mmol/L (22-26); Blood Gas Specimen Type ART; FI02 40; Mode A-C; O2 Delivery Device Vent; PEEP 8; PO2 82 mmHG (75-100); RR 20; SITE L Radial; SO2 93 % (95-99); Time Given 825; Total Carbon Dioxide 18 mmol/L; Vt 430; pCO2 43.4 mmHg (35-45); pH 7.18 (7.35-7.45)
--- NOTE | 2019-02-14 08:50 | PN_ITS ---
Patient Problems: Active and Suspected Problems Cardiopulmonary arrest with successful resuscitation (Acute) Acute on chronic respiratory failure with hypoxia and hypercapnia (Acute) Right lower lobe pneumonia (Acute) Abnormal EKG (Acute) Subjective: continues to be unresponsive. Temp up to 40.3. Per RT: no gag with suctioning. Vitals/I&O's: Vital Signs Temp Pulse Resp BP Pulse Ox 39.7 C H 108 H 20 H 87/67 L 93 02/14/19 08:00 02/14/19 08:00 02/14/19 08:00 02/14/19 08:00 02/14/19 08:00 Oxygen Flow Rate (L/min) 100 Oxygen Delivery Method Mechanical Ventilator Weight: 133.2 kg Body Mass Index (BMI) 37.3 Intake and Output for Last 24 Hours 02/12/19 02/13/19 02/14/19 23:59 23:59 23:59 Intake Total 3886.51 / 3886.51 369.13 / 369.13 Output Total 975 / 1325 395 / 395 Balance 2911.51 / 2561.51 -25.87 / -25.87 General: No apparent distress, - - unresponsive to verbal and noxious stimuli HEENT: Atraumatic, - - pupils fixed and dilated. absent corneal reflex. Oral: Moist Mucosa, No Gingival or Mucosal Lesions/ Ulcerations, - - ETT and OG in place. Neck: No Nodes, Thyroid Normal Size and Texture Lungs: Normal air movement, - - coarse breath sounds bilaterally. Cardiovascular: Regular rate, Regular Rhythm, Normal S1, Normal S2, No murmurs Abdomen: Bowel Sounds Present, Soft, Non Tender, Non-Distended Extremities: No edema, No Calf Tenderness Skin: No rashes, No breakdown, - - numerous tattoos. Musculoskeletal: No Muscle Wasting Neurological: - - no clonus Microbiology Past 72 Hours 02/13/19 13:00 Sputum, Tracheal Aspirate Gram Stain - Final Laboratory Results 02/13/19 09:00: Troponin I 79.200 H* 02/13/19 12:09: POC Glucose 205 H 02/13/19 13:00: MRSA (PCR) Negative 02/13/19 18:28: POC Glucose 129 H 02/13/19 23:49: POC Glucose 106 02/14/19 05:00: WBC 22.0 H, RBC 5.71, Hgb 16.2, Hct 52.4, MCV 91.8, MCH 28.4, MCHC 30.9 L, RDW Std Deviation 49.3 H, RDW Coeff of Roge 14.6, Plt Count 250, MPV 10.5, Immature Gran % (Auto) 1.000 H, Neut % (Auto) 90.9 H, Lymph % (Auto) 4.8 L , [place] % (Auto) 2.9, Eos % (Auto) 0.2, Baso % (Auto) 0.2, Absolute Neuts (auto) 20.0 H, Absolute Lymphs (auto) 1.05, Nucleated RBC % 0.2, Differential Comment SCANNED 02/14/19 05:00: PT 16.7 H, INR 1.4 02/14/19 05:00: Sodium Cancelled, Potassium Cancelled, Chloride Cancelled, Ca rbon Dioxide Cancelled, Anion Gap Cancelled, BUN Cancelled, Creatinine Cancelled, Estim Creat Clear Calc Cancelled, Est GFR (MDRD) Af Amer Cancelled, Est GFR (MDRD) Non-Af Cancelled, BUN/Creatinine Ratio Cancelled, Glucose Cancelled, Calcium Cancelled, Phosphorus Cancelled, Magnesium Cancelled, Total Bilirubin Cancelled, AST Cancelled, ALT Cancelled, Alkaline Phosphatase Cancelled, Total Protein Cancelled, Albumin Cancelled, Globulin Cancelled, Albumin/Globulin Ratio Cancelled 02/14/19 05:50: Sodium 137, Potassium 6.2 H*, Chloride 105, Carbon Dioxide 21.0, Anion Gap 11, BUN 50 H, Creatinine 5.93 H, Estim Creat Clear Calc 15.72, Est GFR (MDRD) Af Amer 13 L, Est GFR (MDRD) Non-Af 11 L, BUN/Creatinine Ratio 8.4 L, Glucose 118 H, Calcium 7.6 L, Phosphorus 4.1, Magnesium 2.0, Total Bilirubin 0.50, AST 685 H, ALT 351 H, Alkaline Phosphatase 84, Total Protein 7.7, Albumin 2.8 L, Globulin 4.9 H, Albumin/Globulin Ratio 0.6 L 02/14/19 08:30: Specimen Type ART, Sample Site L Radial, pH 7.18 L*, Bicarbonate Actual 16.3 L, POC Total CO2 18, Base Excess -12 L, O2 Saturation 93 L, O2 % 40, ABG pCO2 43.4, ABG pO2 82, Neno Test POS, Respiration Rate 20, O2 Delivery Device Vent, Minute Volume 9.00, Vent Mode A-C, Tidal Volume 430, POC PEEP 8, Blood Gas Notified Whom ICU MD, Blood Gas Notified Time 825 Current Medications Acetaminophen (Tylenol) 650 mg RECTAL Q6H PRN PRN PRN Reason: FEVER Last Admin: 02/13/19 16:22 Dose: 650 mg Documented by: Albuterol Sulfate (Ventolin Aerosols) 2.5 mg INHALATION Q2H PRN PRN PRN Reason: WHEEZING Albuterol/Ipratropium (Duoneb) 3 ml INHALATION Q4H.RT [facility] Last Admin: 02/14/19 06:46 Dose: 3 ml Documented by: Baclofen (Lioresal) 5 mg GT TID [facility] Last Admin: 02/14/19 06:49 Dose: 5 mg Documented by: Chlorhexidine Gluconate () 15 ml PO BID [facility] Last Admin: 02/13/19 22:29 Dose: 15 ml Documented by: Chlorhexidine Gluconate () 1 each TOPICAL DAILY [facility] Dextrose (D50w Syringe) 0 gm IV X1 PRN; Protocol PRN Reason: Hypoglycemia Enoxaparin Sodium (Lovenox) 40 mg SC DAILY [facility] Last Admin: 02/13/19 12:12 Dose: 40 mg Documented by: Glucagon () 1 mg IM .X1 PRN PRN Reason: Hypoglycemia Sodium Chloride () 250 mls @ 15 mls/hr IV .[id number] PRN PRN Reason: SALINE FLUSH Famotidine 20 mg/ Sodium (Chloride) 10 mls @ 300 mls/hr IV BID [facility] Last Infusion: 02/13/19 22:37 Dose: Infused Documented by: Ampicillin Sodium/Sulbactam (Sodium 3 gm/ Sodium Chloride) 112 mls @ 150 mls/hr IV Q8 [facility] Last Infusion: 02/14/19 07:50 Dose: Infused Documented by: Norepinephrine Bitartrate 8 mg (/ Sodium Chloride) 250 mls @ 9.375 mls/hr CONT INF .[id number] [facility]; Protocol Last Titration: 02/14/19 08:00 Dose: 10 mcg/min, 18.8 mls/hr Documented by: Propofol (Diprivan) 1,000 mg in 100 mls @ 15.984 mls/hr CONT INF .[id number] [facility]; Protocol Last Titration: 02/14/19 07:05 Dose: 20 mcg/kg/min, 15.4 mls/hr Documented by: Insulin Human Lispro (Humalog Kwikpen (Bkc)) 0 unit SC Q6 [facility]; Protocol Last Admin: 02/14/19 06:41 Dose: Not Given Documented by: Methylprednisolone (Solu-Medrol) 40 mg IV Q6 [facility] Last Admin: 02/14/19 06:49 Dose: 40 mg Documented by: Metoprolol Tartrate (Lopressor (Beta Gabriela)) 5 mg IV Q6H PRN PRN Reason: HR >100 Metoprolol Tartrate (Lopressor (Beta Gabriela)) 25 mg GT BID [facility] Last Admin: 02/13/19 22:32 Dose: 25 mg Documented by: Sodium Chloride () 10 - 40 ml IV UD PRN PRN Reason: SALINE FLUSH Last Admin: 02/14/19 06:50 Dose: 10 ml Documented by: STROKE Vital Signs/Narrative: Vital Signs Temp Pulse Resp BP BP Pulse Ox 02/14/19 08:00 39.7 C H 108 H 20 H 87/67 L 93 02/14/19 07:15 112 H 02/14/19 07:00 40.0 C H 109 H 20 H 102/40 L 94 02/14/19 06:46 108 H 21 H 96 02/14/19 06:00 40.0 C H 110 H 15 102/42 L 96 02/14/19 05:00 40.2 C H 103 H 19 H 85/61 L 96 02/14/19 04:52 102 H 22 H 94 Medical Necessity - Tobacco Use Smoking Status: Never smoker Assessment/Plan All Active Problems Cardiopulmonary arrest with successful resuscitation (Acute) Acute on chronic respiratory failure with hypoxia and hypercapnia (Acute) Right lower lobe pneumonia (Acute) Abnormal EKG (Acute) 1. Cardiac arrest * witnessed. * had CPR initiated the field for ~45min, but not until EMS arrived. Unclear how long patient was without a pulse. Patient was down for about 1 hour * PEA noted in ED. 2. acute hypercapnic respiratory failure * secondary to cardiac arrest, plus pneumonia and COPD * currently satting in mid 90s, but at 100% FiO2 * wean vent as able 3. Right sided pneumonia * cannot R/O ALI (due to pneumonia or CPR) * received CTX and azithromycin in ED * currently on amp/sulbactam * SCx showing rare GPR 4. AECOPD * continue methylpred and BDs 5. Suspected anoxic encephalopathy * diffuse hypoxic injury suspected on CT * clinically ominous signs. * given the length of time that he was down, grave prognosis suspected * now with extremely high fever, concern this may be central, cooling blanket in place 6. VTE proph: LMWH 7. GI proph: H2B 8. Prognosis: grave. Family has been wanting to waiting 48h. No meaningful chance of recovery. End of life care appropriate. Code Visit Inpatient E&M: 46797 Subs Hosp L3
--- NOTE | 2019-02-14 09:28 | CPS ---
Critical pH value read to Dr. Anderson
[2019-02-14] MEDS: Chlorhexidine 15 ML PO ×2 (10:06→22:10)
[2019-02-14] MEDS: Famotidine 200 MG/20 ML MDV 20 MG in 0.9% Normal Saline (Pres. free 8 ML 300 MG IV (10:06)
[2019-02-14] MEDS: Enoxaparin 30 MG/0.3 ML Syringe SC (10:22)
[2019-02-14] MEDS: CHLORHEXIDINE GLUC 2% CLOTH 1 EACH TOWELETTE TOPICAL (10:22)
--- NOTE | 2019-02-14 10:39 | CASEMGMT ---
SW available for family for supportive needs if needed. HIEU Gongora
[2019-02-14] MEDS: Propofol 10MG/Ml 1,000 MG/100 ML Bottle 16 MG CONT INF ×3 (11:39→22:52)
[2019-02-14 11:46] LABS: Bedside Glucose 138 mg/dL (70-110)
--- NOTE | 2019-02-14 13:05 | PCM.PN.CARD ---
Subjectve: Patient seen and examined today. Patient's mental status has not changed whatsoever. Troponins reviewed. Would not recommend catheterization at this time. Patient is being evaluated for either organ donation or terminal extubation. Patient has been very febrile. Telemetry negative. Objective: Vital Signs Temp Pulse Resp BP Pulse Ox 102.9 F H 108 H 20 H 99/63 96 02/14/19 12:00 02/14/19 12:24 02/14/19 12:24 02/14/19 12:00 02/14/19 12:24 Oxygen Flow Rate (L/min) 100 Oxygen Delivery Method Mechanical Ventilator Weight: 293 lb 10.491 oz Body Mass Index (BMI) 37.3 Intake and Output for Last 24 Hours 02/12/19 02/13/19 02/14/19 23:59 23:59 23:59 Intake Total 3886.51 / 3886.51 619.81 / 619.81 Output Total 975 / 1325 495 / 495 Balance 2911.51 / 2561.51 124.81 / 124.81 General: Awake, Alert, Oriented x 3 HEENT: PERRL, EOMI, Sclera Non Icteric Neck: Supple, Good ROM, No Lymph Node Enlargement Lungs: Clear to auscultation Cardiovascular: Regular Rhythm, Normal S1, Normal S2, No Murmurs, No Rubs, No Gallops Vascular: No Carotid Bruits, Normal Femoral Pulses, Normal Radial Pulses, Normal Dorsalis Pedal Pulse, Normal Posterior Tibial Pulses Abdomen: Bowel Sounds Present, Soft, Non Tender, No HSM, No Organomegaly Extremities: No Cyanosis, No Clubbing, No edema Neurological: No Focal Motor or Sensory Deficit 02/14/19 05:00: WBC 22.0 H, RBC 5.71, Hgb 16.2, Hct 52.4, MCV 91.8, MCH 28.4, MCHC 30.9 L, Plt Count 250, MPV 10.5, Immature Gran % (Auto) 1.000 H, Neut % (Auto) 90.9 H, Lymph % (Auto) 4.8 L, Bulloch % (Auto) 2.9, Eos % (Auto) 0.2, Baso % (Auto) 0.2, Absolute Neuts (auto) 20.0 H, Nucleated RBC % 0.2 02/14/19 05:00: PT 16.7 H, INR 1.4 02/14/19 05:00: Sodium Cancelled, Potassium Cancelled, Chloride Cancelled, Carbon Dioxide Cancelled, Anion Gap Cancelled, BUN Cancelled, Creatinine Cancelled, Est GFR (MDRD) Af Amer Cancelled, Est GFR (MDRD) Non-Af Cancelled, BUN/Creatinine Ratio Cancelled, Glucose Cancelled, Calcium Cancelled, Phosphorus Cancelled, Magnesium Cancelled, Total Bilirubin Cancelled 02/14/19 05:50: Sodium 137, Potassium 6.2 H*, Chloride 105, Carbon Dioxide 21.0, Anion Gap 11, BUN 50 H, Creatinine 5.93 H, Est GFR (MDRD) Af Amer 13 L, Est GFR (MDRD) Non-Af 11 L, BUN/Creatinine Ratio 8.4 L, Glucose 118 H, Calcium 7.6 L, Phosphorus 4.1, Magnesium 2.0, Total Bilirubin 0.50 02/14/19 08:30: pH 7.18 L*, Bicarbonate Actual 16.3 L, POC Total CO2 18, Base Excess -12 L, O2 Saturation 93 L, ABG pCO2 43.4, ABG pO2 82, Neno Test POS Rhythm: EKG: ECHO: Stress Test: Cardiac Cath: PCI: CT Surgery: Holter monitor: EPS: PPM: CXR: Chest CT Scan: Medical Necessity - Tobacco Use Smoking Status: Never smoker Assessment/Plan 1. Cardiopulmonary arrest: It appears the patient's cardiopulmonary arrest centered around respiratory failure given his significant right-sided pulmonary infiltrates seen on both chest x-ray and CT scan although now he has significant troponin release and evidence of inferior posterior hypokinesis on echocardiogram.. CT scan did not suggest pulmonary embolism. This would explain why his LV function reportedly was normal on bedside echocardiogram, and that he had no significant arrhythmias that required defibrillation. Nonetheless the patient appears to be at risk for possible coronary occlusive disease and thankfully his EKG has normalized since his admission in the emergency room. His initial troponin was 0.691, and repeat troponins elevated to 79. Given his significant downtime and prolonged CPR, he most likely suffered anoxic brain injury. Would not recommend pursuing left heart catheterization at this time. He is currently being evaluated for possible organ donation, versus terminal extubation. The patient is now hypertensive and somewhat tachycardic and would recommend initiating Lopressor 5 mg IV every 4 to 6 hours as needed to keep his MEP around 60 and his heart rate less than 100. If his hypertension continues, I have a low threshold for IV nitroglycerin drip. In addition I recommend he undergo a 2D echo with Doppler to determine his LV function, pulmonary pressures, and valvular status. As the patient's EKG is normalized and he has no overt arrhythmias. In fact, his EKG does not show any significant inferior or posterior changes. In the meantime I recommend treating him with baby aspirin 81 mg p.o. daily. We await the results of organ donation evaluation versus terminal extubation. 2. Neurological status: We will defer to neurological consultation and possible EEG in the next several days to evaluate for anoxic brain injury. The patient reportedly had the better part of 45 minutes of CPR and was found to be in PEA according to the ER physician. 3. Discussed with Dr. Anderson. Thank you very much for the opportunity to participate in the cardiac care of your patient. We will sign off. Please call with any questions. Code Visit Inpatient E&M: 56085 Subs Hosp L2
--- NOTE | 2019-02-14 13:32 | CASEMGMT ---
SW spoke w/pt's daughters Chiquita and Brook, and pt's niece. Support given. SW remains available for any additional social service needs. HIEU Gongora
--- NOTE | 2019-02-14 15:22 | CPS ---
FiO2 increased from 40% to 50%; improving oxygenation for pt.
--- NOTE | 2019-02-14 15:48 | CHAPLAIN ---
Type of Pastoral Visit _x__ Initial Visit ___ Follow-up Visit ___ On-call Visit ___ General Patient Visit ___ Spiritual Assessment ___ Family Conference ___ Bereavement ___ Rapid Response ___ Code Blue ___ Other (describe below) Pastoral Care Referral From ___ Patient ___ Family ___ Nurse _x__ Physician ___ Insurance Adjustor ___ Fabricating Machine Operator ___ Other (describe below) Sacrament/Intervention ___ Active listening ___ Anointing ___ Yazdanism ___ Bereavement ___ Communion ___ Paula exploration ___ ___ Life review ___ Prayer ___ Reconciliation ___ Sacrament of Sick _x__ Supportive presence ___ Wedding _x__ Other (describe below) Pastoral Comments patient is to be extubated later this evening when all family members can be present; patient will ; offer of support given to family that have already gathered; family states that your offer is appreciated but patient is not rastafarian; family does welcome the offer of a lap blanket made by local volunteers for patients at end of life
[2019-02-14] MEDS: Insulin Lispro 100 UNIT/ML INSULN.PEN SC (17:19)
--- NOTE | 2019-02-14 17:28 | CHAPLAIN ---
Type of Pastoral Visit ___ Initial Visit _x__ Follow-up Visit ___ On-call Visit ___ General Patient Visit ___ Spiritual Assessment ___ Family Conference ___ Bereavement ___ Rapid Response ___ Code Blue ___ Other (describe below) Pastoral Care Referral From ___ Patient _x__ Family ___ Nurse ___ Physician ___ Dial Painter ___ Linen Tech ___ Other (describe below) Sacrament/Intervention ___ Active listening ___ Anointing ___ Taoist ___ Bereavement ___ Communion ___ Paula exploration ___ ___ Life review ___ Prayer ___ Reconciliation ___ Sacrament of Sick ___ Supportive presence ___ Wedding _x__ Other (describe below) Pastoral Comments mother of the patient requests meeting with this aviation survival technician; mother is grieving and is tearful; mother of patient requests the Last [employer] for pt; mother states that pt is a baptized Adventist although non practicing; Call made by this aviation survival technician to [facility] to request a store deli manager; message will be delivered to store deli manager by [facility] [place]; presence and prayer given to this mother although with offer of support
[2019-02-14 17:36] LABS: Bedside Glucose 223 mg/dL (70-110)
[2019-02-15] VITALS: BP 132/84; PULSE 124; RESP 20; TEMP 37.6; O2SAT 93
[2019-02-15 01:15] VITALS: PULSE 216; RESP 20; O2SAT 97
[2019-02-15 01:35] VITALS: PULSE 77; RESP 0; O2SAT 58
--- NOTE | 2019-02-15 01:35 | NURSING ---
Pt terminally extubated with family at bedside. Pt has not initiated any breaths on own since extubation.
--- NOTE | 2019-02-15 01:35 | CPS ---
Pt terminally extubated per family request. Pt placed on 6l nasal cannula for comfort. RN and family at bedside.
--- NOTE | 2019-02-15 02:05 | PCM.HOSP.N ---
Hospitalist Note Patient time of passing 02/15/19 1:53 am with extubation at 1:35 am.
--- NOTE | 2019-02-15 02:23 | NURSING ---
No maintenance IV fluids given 1 hour prior to time of .
--- NOTE | 2019-02-15 07:25 | PCM.DEATH ---
Preliminary Cause of cardiac arrest Date of Admission: 02/13/19 Date of : 02/15/19 - Principle Diagnosis Cardiac arrest. Anoxic brain injury. Hospital Course 58-year-old white male had a cardiac arrest in the field. Patient had CPR initiated in the field and then continued in the emergency room. Successful resumption of cardiac function occurred about 1 hour after initiating CPR. CPR was not initiated until EMS had arrived so is unclear how patient was down without pulse. Patient was intubated and admitted to the ICU. Patient had a head CT that showed findings highly suspicious for diffuse hypoxic injury. Clinically, patient had fixed and dilated pupils, absent corneal reflexes. Prognosis was essentially terminal at that point. Family is made aware of this. Discussions were held with family and family is coming from out of state and patient was terminally extubated around 1:35 AM today. Patient at 1:53AM today.
== END 2019-02-15 01:53 ==
LOC: ED 03:31 → ICU 05:18
PROVIDERS: Internal Medicine Cardiovascular Disease; Internal Medicine Critical Care Medicine; Admitting Provider Family Medicine; Emergency Provider Emergency Medicine; Family Provider Internal Medicine; PCP Internal Medicine
DX: I46.9 Cardiac arrest, cause unspecified (principal); I21.3 ST elevation (STEMI) myocardial infarction of unspecified site; J18.9 Pneumonia, unspecified organism; J96.21 Acute and chronic respiratory failure with hypoxia; J96.22 Acute and chronic respiratory failure with hypercapnia; G93.1 Anoxic brain damage, not elsewhere classified; S22.43XA Multiple fractures of ribs, bilateral, initial encounter for closed fracture; J44.1 Chronic obstructive pulmonary disease with (acute) exacerbation; J44.0 Chronic obstructive pulmonary disease with (acute) lower respiratory infection; L88 Pyoderma gangrenosum; Z68.43 Body mass index [BMI] 50.0-59.9, adult; I12.9 Hypertensive chronic kidney disease with stage 1 through stage 4 chronic kidney disease, or unspecified chronic kidney disease; N18.3 Chronic kidney disease, stage 3 (moderate); G47.33 Obstructive sleep apnea (adult) (pediatric); E66.01 Morbid (severe) obesity due to excess calories; T88.4XXA Failed or difficult intubation, initial encounter; Z95.5 Presence of coronary angioplasty implant and graft; Z79.899 Other long term (current) drug therapy
CPT/HCPCS: 31500; 31720; 36600; 51702; 70450; 71045; 71275; 80053; 81001; 82803; 82962; 83605; 83735; 84100; 84484; 85025; 85610; 85730; 87040; 87070; 87086; 87205; 87641; 92950; 93005; 93306; 94002; 94003; 94640; 97802; 99285; J7030; J7040; J7050; Q9957; Q9967; A4216; C1751; C8929; J0295; J3490